=== PATIENT | female | born 1950 | race Caucasian/White ===

== ENCOUNTER → 2019-10-25 09:35 | Outpatient (BNVA) | payer MEDICARE, OTHER, SELFPAY | PROVIDERS: Family Provider Physician Assistant; PCP Physician Assistant; Visit Provider Nurse Practitioner Psychiatric/Mental Health | DX: F32.4 Major depressive disorder, single episode, in partial remission (principal); G89.29 Other chronic pain; F51.04 Psychophysiologic insomnia | CPT/HCPCS: 99214 ==

== ENCOUNTER 2020-02-03 13:56 | Outpatient (CLI) | payer MEDICARE, OTHER, SELFPAY ==
--- NOTE | 2020-02-03 14:16 | XR_ITS ---
WS: [id number] SCREENING DEXA SCAN [employer] CLINICAL INFORMATION: OSTEOPOROSIS COMPARISON: None. FINDINGS: Left forearm bone mineral density 0.683 g/sq cm with a T score of -2.2 and Z score of -0.5 Right forearm bone mineral density 0.678 g/sq cm with a T score of -2.3 and Z score of -0.5 XR/XR DEXA axial skeleton* 14049 IMPRESSION: Osteopenia at the upper end of the range.
== END 2020-02-03 13:57 | disposition home or self-care (01) ==
LOC: RADWPI 14:01
PROVIDERS: Family Provider Physician Assistant; PCP Physician Assistant; Visit Provider Physician Assistant
DX: M81.0 Age-related osteoporosis without current pathological fracture (principal); M85.89 Other specified disorders of bone density and structure, multiple sites
CPT/HCPCS: 77080; 99213

== ENCOUNTER 2020-02-10 11:09 | Day surgery (SDC) | payer MEDICARE, OTHER, SELFPAY ==
[2020-02-08 12:23] VITALS: BMI 29.6
--- NOTE | 2020-02-10 09:19 | W.PM.OPSFHP ---
Same Day Surgery H&P Indication for Procedure/HPI DATE OF PROCEDURE: February 10, 2020 CHIEF COMPLAINT/INDICATIONFOR SURGICAL PROCEDURE: Iron deficiency anemia PREOP DIAGNOSIS: Iron deficiency anemia PLANNED PROCEDRUE: Operation Date: 02/10/20 12:00 Proposed Procedures p EGD 30540, 68436, R19.5(Not Applicable) - Bassem Weller MD s Colonoscopy(Not Applicable) - Bassem Weller MD Medications/Allergies* Home Medications Medication Instructions Recorded Confirmed Type cetirizine 10 mg tablet 10 mg PO DAILY tab 10/24/19 02/08/20 History cyclobenzaprine 10 mg tablet 10 mg PO DAILY PRN tab 10/24/19 02/08/20 History lisinopril 20 mg tablet 20 mg PO DAILY tab 10/24/19 02/08/20 History pregabalin 75 mg capsule 75 mg PO TID PRN 10/24/19 02/08/20 History acyclovir 200 mg capsule 200 mg PO BID cap 10/25/19 02/08/20 History aspirin 81 mg tablet,delayed 81 mg PO DAILY tab 10/25/19 02/08/20 History release atorvastatin 20 mg tablet 20 mg PO DAILY tab 10/25/19 02/08/20 History esomeprazole magnesium 40 mg 40 mg PO BID cap 10/25/19 02/08/20 History capsule,delayed release metformin 500 mg tablet 500 mg PO .QHS tab 10/25/19 02/08/20 History mirtazapine 45 mg tablet 45 mg PO .QHS tab 10/25/19 02/08/20 History buspirone 10 mg tablet 10 mg PO BID tab 01/10/20 02/08/20 History hydrocodone 10 mg-acetaminophen 1 tab PO TID PRN tab 01/10/20 02/08/20 History 325 mg tablet linaclotide 290 mcg capsule 290 mcg PO DAILY PRN cap 01/10/20 02/08/20 History quetiapine 100 mg tablet 100 mg PO .QHS tab 01/10/20 02/08/20 History amlodipine 5 mg PO DAILY 02/08/20 02/08/20 History metoprolol succinate 50 mg PO DAILY 02/08/20 02/08/20 History Allergies/Adverse Reactions Allergy/AdvReac Type Severity Reaction Status Date / Time latex Allergy ALGY-Rash Verified 02/08/20 12:35 Penicillins Allergy ALGY-Rash Verified 01/10/20 10:13 shrimp Allergy ADR-Vomitin Verified 01/10/20 10:13 g Tetracyclines Allergy ALGY-Rash Verified 01/10/20 10:13 Pertinent History/Comorbid Conditions* Social History Smoking and tobacco status: current every day smoker cigarettes Years cigarettes smoked: 35 Quit status (tobacco): not considering quitting Second hand smoke exposure: No Pertinent Exam Findings alert, oriented x 3, clear to auscultation bilaterally, regular rate & rhythm, operative site marked and procedure specific exam findings Recommendations Surgery/Procedure today Coding Level of Care Code Acute Risk Management Professional for Gilbert Bahena
--- NOTE | 2020-02-10 09:20 | W.PM.OPSFHP ---
Same Day Surgery H&P Indication for Procedure/HPI DATE OF PROCEDURE: February 10, 2020 PREOP DIAGNOSIS: Iron deficiency anemia PLANNED PROCEDRUE: Operation Date: 02/10/20 12:00 Proposed Procedures p EGD 84881, 80988, R19.5(Not Applicable) - Bassem Weller MD s Colonoscopy(Not Applicable) - Bassem Weller MD Medications/Allergies* Home Medications Medication Instructions Recorded Confirmed Type cetirizine 10 mg tablet 10 mg PO DAILY tab 10/24/19 02/08/20 History cyclobenzaprine 10 mg tablet 10 mg PO DAILY PRN tab 10/24/19 02/08/20 History lisinopril 20 mg tablet 20 mg PO DAILY tab 10/24/19 02/08/20 History pregabalin 75 mg capsule 75 mg PO TID PRN 10/24/19 02/08/20 History acyclovir 200 mg capsule 200 mg PO BID cap 10/25/19 02/08/20 History aspirin 81 mg tablet,delayed 81 mg PO DAILY tab 10/25/19 02/08/20 History release atorvastatin 20 mg tablet 20 mg PO DAILY tab 10/25/19 02/08/20 History esomeprazole magnesium 40 mg 40 mg PO BID cap 10/25/19 02/08/20 History capsule,delayed release metformin 500 mg tablet 500 mg PO .QHS tab 10/25/19 02/08/20 History mirtazapine 45 mg tablet 45 mg PO .QHS tab 10/25/19 02/08/20 History buspirone 10 mg tablet 10 mg PO BID tab 01/10/20 02/08/20 History hydrocodone 10 mg-acetaminophen 1 tab PO TID PRN tab 01/10/20 02/08/20 History 325 mg tablet linaclotide 290 mcg capsule 290 mcg PO DAILY PRN cap 01/10/20 02/08/20 History quetiapine 100 mg tablet 100 mg PO .QHS tab 01/10/20 02/08/20 History amlodipine 5 mg PO DAILY 02/08/20 02/08/20 History metoprolol succinate 50 mg PO DAILY 02/08/20 02/08/20 History Allergies/Adverse Reactions Allergy/AdvReac Type Severity Reaction Status Date / Time latex Allergy ALGY-Rash Verified 02/08/20 12:35 Penicillins Allergy ALGY-Rash Verified 01/10/20 10:13 shrimp Allergy ADR-Vomitin Verified 01/10/20 10:13 g Tetracyclines Allergy ALGY-Rash Verified 01/10/20 10:13 Pertinent History/Comorbid Conditions* Social History Smoking and tobacco status: current every day smoker cigarettes Years cigarettes smoked: 35 Quit status (tobacco): not considering quitting Second hand smoke exposure: No Coding Level of Care Code Acute Lighting Engineer for Gilbert Bahena
[2020-02-10 11:30] VITALS: BP 142/80; PULSE 87; RESP 18; TEMP 36.3; O2SAT 98
[2020-02-10 11:46] LABS: Glucose Point of Care 115 mg/dL (70-110)
[2020-02-10] MEDS: sodium chloride 0.9% 1,000 ML 30 ML IV (11:46)
--- NOTE | 2020-02-10 11:49 | ANES.PREANE2 ---
Pre-Anesthetic Assessment Pre-Anesthetic Assessment: Height/Weight: Height 1.66 m Weight 82.1 kg Temp Pulse Resp BP Pulse Ox 97.4 F L 87 18 142/80 98 02/10/20 11:30 02/10/20 11:30 02/10/20 11:30 02/10/20 11:30 02/10/20 11:30 Preop Diagnosis: fobt Proposed Procedure: Operation Date: 02/10/20 12:00 Proposed Procedures p EGD 50769, 70331, R19.5(Not Applicable) - Bassem Weller MD s Colonoscopy(Not Applicable) - Bassem Weller MD Familial anesthetic complications: PONV when she was younger Was Beta Iván taken within 24 hours: Yes Last intake: Intake Last Liquid Date 02/09/20 Last Liquid Time 23:00 Last Solid Date 02/09/20 Last Solid Time 07:00 Social: Social History: No alcohol and No tobacco Exam: Pre-Anes Outpt Exam: alert, oriented x 3, clear to auscultation bilaterally and regular rate & rhythm Airway: Cervical ROM: WNL MP: 3 Dentition: False Pulmonary: Pulmonary: None reported CV/HEM: CV/HEM: HTN : : None reported Hepatic: Hepatic: None reported GI: GI: GERD Metabolic: Metabolic: DM Musc/skel: Comments: 2 hip fractures Neuropsych: Neuropsych: None reported Comments: rheumatic fever seizure as a child Anesthetic Plan: ASA status: 2 Anesthesia: MAC Risk of > 500 ml blood loss (7ml/kg in children): No Meds/Allergies Current Medications: Current Medications Generic Name Dose Route Start Last Admin Trade Name Freq PRN Reason Stop Dose Admin Sodium Chloride 1,000 mls @ 30 ml s/hr 02/10/20 11:30 02/10/20 11:46 Sodium Chloride 0.9% IV 02/11/20 11:29 30 mls/hr .Q24H ADILIA Administration PFSH Anesthesia PFSH: Social History Smoking and tobacco status: current every day smoker cigarettes Years cigarettes smoked: 35 Quit status (tobacco): not considering quitting Second hand smoke exposure: No Data Anesthesia Other Labs: Laboratory Results - last 48 hr 02/10/20 11:44 POC Glucose 115 Cardiac Studies: No Data to Display
[2020-02-10 13:38] VITALS: BP 104/64; PULSE 72; RESP 16; TEMP 36.2; O2SAT 97
[2020-02-10 13:48] VITALS: BP 110/77; PULSE 81; RESP 18; O2SAT 100
== END 2020-02-10 14:27 | disposition home or self-care (01) ==
PROVIDERS: PCP Physician Assistant; Visit Provider Internal Medicine
PROC: 0DJ08ZZ Inspection of Upper Intestinal Tract, Via Natural or Artificial Opening Endoscopic (ICD-10-PCS; CPT 43235; principal; 2020-02-10 12:00)
PROC: 0DJD8ZZ Inspection of Lower Intestinal Tract, Via Natural or Artificial Opening Endoscopic (ICD-10-PCS; CPT 45378; 2020-02-10 12:00)
DX: R19.5 Other fecal abnormalities (principal); D50.9 Iron deficiency anemia, unspecified; K29.70 Gastritis, unspecified, without bleeding; I10 Essential (primary) hypertension; K21.9 Gastro-esophageal reflux disease without esophagitis; E11.9 Type 2 diabetes mellitus without complications; F17.210 Nicotine dependence, cigarettes, uncomplicated; Z79.84 Long term (current) use of oral hypoglycemic drugs
CPT/HCPCS: 12345; 36416; 43239; 45378; 82962; 87077; J2001; J2704; J7030

== ENCOUNTER → 2020-02-14 07:56 | Outpatient (BNVA) | payer MEDICARE, OTHER, SELFPAY | PROVIDERS: PCP Physician Assistant; Visit Provider Nurse Practitioner Psychiatric/Mental Health | DX: F32.4 Major depressive disorder, single episode, in partial remission (principal); G89.29 Other chronic pain; F51.04 Psychophysiologic insomnia | CPT/HCPCS: 99212 ==

== ENCOUNTER → 2020-04-05 07:56 | Outpatient (BNVA) | payer MEDICARE, OTHER, SELFPAY | PROVIDERS: PCP Physician Assistant; Visit Provider Nurse Practitioner Psychiatric/Mental Health | DX: F32.4 Major depressive disorder, single episode, in partial remission (principal); G89.29 Other chronic pain; F51.04 Psychophysiologic insomnia | CPT/HCPCS: 99212 ==

== ENCOUNTER → 2020-05-15 08:00 | Outpatient (BNVA) | payer MEDICARE, OTHER, SELFPAY | PROVIDERS: PCP Physician Assistant; Visit Provider Nurse Practitioner Psychiatric/Mental Health | DX: F32.4 Major depressive disorder, single episode, in partial remission (principal); G89.29 Other chronic pain; F51.04 Psychophysiologic insomnia; F41.1 Generalized anxiety disorder | CPT/HCPCS: 99212 ==

== ENCOUNTER → 2020-07-26 08:57 | Outpatient (BNVA) | payer MEDICARE, OTHER, SELFPAY | PROVIDERS: PCP Physician Assistant; Visit Provider Licensed Practical Nurse | DX: Z98.890 Other specified postprocedural states (principal); M51.16 Intervertebral disc disorders with radiculopathy, lumbar region; M51.34 Other intervertebral disc degeneration, thoracic region; G60.8 Other hereditary and idiopathic neuropathies; F17.210 Nicotine dependence, cigarettes, uncomplicated | CPT/HCPCS: 99214 ==

== ENCOUNTER → 2020-08-07 07:42 | Outpatient (BNVA) | payer MEDICARE, OTHER, SELFPAY | PROVIDERS: PCP Physician Assistant; Visit Provider Nurse Practitioner Psychiatric/Mental Health | DX: F32.4 Major depressive disorder, single episode, in partial remission (principal); G89.29 Other chronic pain; F51.04 Psychophysiologic insomnia | CPT/HCPCS: G0463 ==

== ENCOUNTER 2020-09-17 08:07 | Outpatient (CLI) | payer MEDICARE, OTHER, SELFPAY ==
--- NOTE | 2020-09-17 08:45 | MR_ITS ---
WS: [id number] MRI THORACIC SPINE WITHOUT CONTRAST TECHNIQUE: Sagittal T1, T2 and STIR imaging. Axial T2 imaging. Noncontrast imaging obtained. CLINICAL INFORMATION: Z98.890 - Other specified postprocedural states COMPARISON: CT thoracic spine 10 15,018 FINDINGS: Moderate thoracic kyphosis centered at the T7 level with anterior wedging. This is unchanged in appea nanci since the prior CT. Mild retropulsion of the posterior inferior cortex with mild disc bulging a nd mild central canal stenosis. Slight effacement of ventral thecal sac. Mild bilateral T7-8 foramina l narrowing. Small shallow central protrusions at T10-11 and T11-T12 with mild central canal stenosis. Mild bilate ral bony foraminal narrowing bilateral T10-11 and bilateral T11-T12. Moderate facet arthropathy lower thoracic spine. Normal caliber thoracic aorta. Mild central canal stenosis in the cervical spine see n on the registered dental assistant rda imaging. MR/MR thoracic spin wo con* [id number] IMPRESSION: 1. Moderate thoracic kyphosis with chronic compression of the T7 vertebral bod y with anterior wedging is unchanged. 2. Mild disc bulging at T7-8 with mild central canal stenosis and mild bilater al foraminal narrowing. 3. Small central protrusions T10-11 and T11-T12 with mild central canal stenos is and mild bilateral foraminal narrowing. 4. Moderate facet arthropathy lower thoracic spine.
--- NOTE | 2020-09-17 08:49 | MR_ITS ---
WS: [id number] MRI LUMBAR SPINE WITH CONTRAST TECHNIQUE: Sagittal T1, T2 and STIR imaging. Axial T1 and T2 imaging. Post gadolinium imaging was obt ained. CLINICAL INFORMATION: LOW BACK PAIN. FALL. S/P FUSION/FIXATION COMPARISON: MRI 1 16 FINDINGS: Mild lumbar curve. No acute compression. Pedicle screw fixation L2-3 with interbody fusion. Laminecto my defects. Disc bulging worse at L1-2 and L3-4. Small central disc protrusions T10-T11 and T11-T12 w ith mild central canal stenosis. L1-L2: Mild disc bulging with a small central protrusion. Narrowing of the subarticular recess bilate rally. Mild central canal stenosis. Mild bilateral foraminal narrowing. Mild facet arthropathy. L2-L3: Pedicle screw fixation with interbody fusion. Spinal canal and foramen are patent. L3-L4: Laminectomy defects. Mild disc bulging with narrowing of the left greater than right subarticu lar recess. Small bilateral foraminal protrusions left greater than right with moderate left foramina l narrowing. Mild right foraminal narrowing. Moderate facet arthropathy. L4-L5: Mild annular bulging with impingement on the right greater than left subarticular recess and t raversing right L5 nerve root. Small right foraminal protrusion with moderate right foraminal narrowi ng. Moderate facet arthropathy. L5-S1: Mild annular bulging. Moderate facet arthropathy. Spinal canal and foramen are patent. Tarlov cysts in the sacrum. MR/MR lumbar spine wo/w con [id number] IMPRESSION: 1. Mild lumbar curve. No acute compression. Stable postoperative changes pedic le screw fixation L2-3 with interbody fusion. 2. Left foraminal protrusion L3-4 impinges the exiting left L3 nerve root with moderate left foraminal narrowing. This is progressed from previous. 3. Small right foraminal protrusion L4-5 contacts the exiting right L4 nerve r oot. 4. Impingement on the left L3-4 and right L4-5 subarticular recess. 5. Mild central canal stenosis L1-2 with disc bulging and a small central shal low disc protrusion similar to previous. Mild bilateral foraminal narrowing at this level. 6. Small protrusions in the lower thoracic spine at T10-T11 and T11-T12 with m ild central canal stenosis. 7. Moderate facet arthropathy L3-L5.
--- NOTE | 2020-09-17 08:50 | XR_ITS ---
WS: [id number] LUMBAR SPINE FLEXION AND EXTENSION TECHNIQUE: 3 views of the lumbar spine: Lateral neutral, flexion, and extension views. CLINICAL INFORMATION: LOW BACK PAIN. FALL. S/P FUSION/FIXATION COMPARISON: None. FINDINGS: Osteopenia. Slight anterolisthesis L4 on L5 measuring 3 mm. Pedicle screw fixation L2-3 with interbod y fusion graft. Moderate facet arthropathy lower thoracic spine. Hardware appears intact. No instabil ity on flexion-extension. XR/XR lumbar spine f/e only [id number] IMPRESSION: 1. Stable postoperative changes pedicle screw fixation L2-3 with interbody fus ion graft. 2. No instability on flexion-extension.
== END 2020-09-17 08:08 | disposition home or self-care (01) ==
LOC: RADWPI 08:16
PROVIDERS: PCP Physician Assistant; Visit Provider Licensed Practical Nurse
DX: Z98.1 Arthrodesis status (principal); W19.XXXA Unspecified fall, initial encounter; M51.26 Other intervertebral disc displacement, lumbar region; M48.061 Spinal stenosis, lumbar region without neurogenic claudication; M47.816 Spondylosis without myelopathy or radiculopathy, lumbar region; M51.24 Other intervertebral disc displacement, thoracic region
CPT/HCPCS: 72120; 72146; 72158; A9579

== ENCOUNTER → 2020-10-30 09:23 | Outpatient (BNVA) | payer MEDICARE, OTHER, SELFPAY | PROVIDERS: PCP Physician Assistant; Visit Provider Nurse Practitioner Psychiatric/Mental Health | DX: F32.4 Major depressive disorder, single episode, in partial remission (principal); G89.29 Other chronic pain; F51.04 Psychophysiologic insomnia | CPT/HCPCS: 99214 ==

== ENCOUNTER 2020-11-17 11:36 | Observation (INO) | payer MEDICARE, OTHER, SELFPAY ==
[2020-11-17] VITALS (8 sets, daily range): BP systolic 119–141; BP diastolic 71–97; PULSE 73–82; RESP 14–18; TEMP 36.2–36.6; O2SAT 90–100; BMI 28.8
--- NOTE | 2020-11-17 11:46 | ECG_ITS ---
[facility] Test Date: 2020-11-17 Pat Name: Trini Marie Department: Room: Gender: Female Assistant Chief Of Police: : 1950 Requested By: Bk Stack Order Number: [id number] Harmony MD: Ewa Kaplan M.D. Measurements Intervals [place] Rate: 76 P: -68 UT: 198 QRS: -38 QRSD: 110 T: 50 QT: 412 QTc: 465 Interpretive Statements SINUS RHYTHM LEFT AXIS DEVIATION [QRS AXIS < -30] LOW QRS VOLTAGE IN PRECORDIAL LEADS [QRS DEFLECTION < 1.0 mV IN CHEST LEADS] INCOMPLETE RIGHT BUNDLE BRANCH BLOCK [90+ ms QRS DURATION, TERMINAL R IN V1/V2, 40+ ms S IN I/aVL/V4/V5/V6] ANTEROSEPTAL MYOCARDIAL INFARCTION , OF INDETERMINATE AGE [40+ ms Q WAVE IN V1-V4] Compared to ECG 01/20/2019 08:07:35 Incomplete right bundle-branch block now present First degree AV block no longer present Myocardial infarct finding still present Electronically Signed On 11-17-2020 19:27:45 BOW STRING MAKER by Ewa Kaplan M.D. [id number]
--- NOTE | 2020-11-17 11:46 | XRR_ITS ---
PROCEDURE INFORMATION: Exam: XR Chest, 1 View Exam date and time: 11/17/2020 11:51 AM Age: 70 years old Clinical indication: Dyspnea TECHNIQUE: Imaging protocol: XR of the chest Views: 1 view. COMPARISON: CR Chest 1 [place] [id number] 10/02/2016 5:37 PM FINDINGS: Lungs: Unremarkable. No consolidation. Pleural spaces: Unremarkable. No pleural effusion. No pneumothorax. Heart/Mediastinum: Unremarkable. No cardiomegaly. Bones/joints: Unremarkable. XR/XR chest 1V portable [id number] IMPRESSION: No acute findings.
--- NOTE | 2020-11-17 11:46 | CTR_ITS ---
PROCEDURE INFORMATION: Exam: CT Head Without Contrast Exam date and time: 11/17/2020 11:47 AM Age: 70 years old Clinical indication: Altered mental status/memory loss; Additional info: Symptoms of acute stroke TECHNIQUE: Imaging protocol: Computed tomography of the head without contrast. Radiation optimization: All CT scans at this facility use at least one of these dose optimization techniques: automated exposure control; mA and/or kV adjustment per patient size (includes targeted exams where dose is matched to clinical indication); or iterative reconstruction. Other technique: STROKE PROTOCOL was implemented. COMPARISON: No relevant prior studies available. RADIATION DOSE METRICS: Total DLP (mGy-cm): 782.88 FINDINGS: Brain: No hemorrhage, mass effect or midline shift. No acute, major vascular distribution infarction identified. There is foci of decreased attenuation in the periventricular and subcortical white matter, likely representing chronic small vessel ischemic changes. Mild cerebral volume loss is present. Cerebral ventricles: No ventriculomegaly. Bones/joints: Unremarkable. No acute fracture. Paranasal sinuses: There is pansinus mucosal thickening and air-fluid level with bubbles of air in the right venous sinus, suggestive of acute sinusitis. Mastoid air cells: Visualized mastoid air cells are well aerated. Soft tissues: Unremarkable. CT/CT head wo con* [id number] IMPRESSION: 1. No acute intracranial abnormality. 2. Acute sinus inflammatory changes. ASSESSMENT: ASPECTS ([facility] Stroke Program Early CT Score) is 10. Radiation Dose CTDIVOL = (mGy): DLP = 782.88 (mGy-cm)
[2020-11-17] MEDS: naloxone 0.4 mg/ml SDV IVP (11:57)
[2020-11-17 11:58] LABS: Basophils # 0.1 10^3/uL (0.0-0.1); Basophils % 1.4 %; Eosinophils # 0.4 10^3/uL (0.0-0.8); Eosinophils % 5.8 %; Hemoglobin 11.5 g/dL (11.5-15.3); Lymphocytes # 1.1 10^3/uL (0.8-4.8); Lymphocytes % 14.6 %; Mean Corpuscular HGB Conc 33.8 g/dL (30.0-36.0); Mean Corpuscular Hemoglobin 30.6 pg (28.0-34.0); Mean Corpuscular Volume 90.4 fL (81-99); Monocytes # 0.4 10^3/uL (0.2-0.9); Monocytes % 5.4 %; Neutrophils % 72.3 %; Nucleated Red Blood Cells % 0 %; Platelet Count 472 10^3/cmm (130-400); Red Blood Count 3.76 10^6/uL (4.1-5.3); White Blood Count 7.6 10^3/uL (4.0-10.0)
--- NOTE | 2020-11-17 12:03 | P.PNCC_ITS ---
Stroke Alert Activation ED Arrival Date: 11/17/20 ED Physican at Bedside: 11:36 Last Known Normal/at Baseline: 1-2 hours ago Other Last Known Well Infomation: I was called stat for stroke team after self-help [facility] called with left-sided weakness for this 70-year-old woman. Story related by EMS was that the patient was normal when her went out to do some chores and when he returned she was slumped over and he could not wake her up. [facility] was weak on the left side and unarousable. They almost intubated her but she recovered enough that they brought her in on stretcher. She was taken directly to CAT scan and I arrived just as she came off of the table and looked at her scan on the monitor. I had a question of whether her basilar artery was slightly small but she had n o parenchymal abnormalities. No string sign. I came to the bedside and performed an NIH stroke scale along with Yvonne, her patient care nurse. She was stuporous but arousable. She had left facial weakness that was mild. Both arms drifted after 8 seconds. She was able to tell me her name. I found no other focal signs. She appeared profoundly obtunded. Her eye movements were normal but oculocephalic movements were absent consistent with the patient being only mildly sleepy. Her speech was dysarthric as if she were deeply asleep. I thought this was probably toxic metabolic but was concerned about posterior circulation stroke. Yvonne suggested administration of Narcan as she found hydrocodone on the patient's medication list and 1 amp of Narcan was delivered. The patient prompt ly woke up. At that moment (1201) the patient's arrived with her medication boxes and she was alert enough to look at her boxes and say I took this evening's medications, my bad. Stroke alert was called off at 1201. Stroke Alert Activated by: [facility] Stroke Alert Activation Time: 11:23 Stroke MD @ Bedside Time: 11:30 NIH Stroke Scale Time: 11:40 NIH stroke score NIHSS: Level Of Consciousness - 1a: 2 Level Of Consciousness Questions - 1b: Both Correct Level Of Consciousness Commands - 1c: Both Correct Best Gaze - 2: Normal Visual Islas - 3: No Visual Loss (I could not say for sure that the patient did not have a visual field loss because she was too obtunded to threaten) Facial Palsy - 4: Minor Paralysis Motor Arm Right - 5: Drift Motor Arm Left - 5: Drift Motor Leg Right - 6: No Effort Against [place] Motor Leg Left - 6: No Effort Against [place] Limb Ataxia - 7: Absent Sensory - 8: Normal (She complained with pinching but ignored deep nailbed pressure) Best Language - 9: No Aphasia Dysarthia - 10: Mild/Moderate Dysarthia Extinction And Inattention - 11: 0 Score: Total Score: 12 Stroke Alert Data/Treatment Time to CT of Head: 11:36 CT Results Time: 11:40 CT Impression: My impression was normal Stroke Risk Factors: hypertension tPA Contraindication: tPA Contraindication: Treatment not indcated tPA Admin Prior to Arrival: No Patient & Family Educated on: Treament Plan Other Information: Final diagnosis was toxic metabolic encephalopathy secondary to inadvertent drug overdose. This was not intentional and the patient said that she took her evening medications by mistake which included 400 mg of quetiapine and hydrocodone APAP. Her symptoms resolved with Narcan. Critical Care Time Critical Care Time: 30 - 74 mins A&P Assessment and plan (1) Toxic encephalopathy: Status: Acute Coding Level of Care Code Acute Cnc Mill And Lathe Operator for Gilbert Bahena Diagnoses Toxic encephalopathy G92
[2020-11-17 12:08] LABS: INR 0.88 (0.8-1.2)
--- NOTE | 2020-11-17 12:17 | ED_ITS ---
HPI - Neuro Symptoms/Deficit General: Chief Complaint: Neuro Symptoms/Deficit Stated Complaint: Stroke alert Time Seen by Provider: 11/17/20 11:44 History of Present Illness: HPI Narrative: Patient is a 70-year-old female with past medical history hypertension who comes to the ER as a stroke alert. Last time seen normal at 10:45 AM by her . She has a recent history of dizzy spells where she will be standing and feels weird and is able to sit down and feels better shortly thereafter. Today she comes to the ER sleepy but able to wake with verbal stimuli. She also takes hydrocodone and Seroquel. She was given 0.4 mg of Narcan and woke and now she is alert and oriented x4. Denies pain anywhere. Head CT shows no bleed and nothing acute. Discussed with Dr. Avina who agrees with plan of care and does not recommend TPA. Last Observed Normal: 10:45 History of same: No Severity: severe Quality: weak On Anticoagulants: No Associated symptoms: Reports no associated symptoms; Deny chest pain or headache(s) Review of Systems General: Reports: 10 or more systems reviewed and unremarkable except in HPI and below Const: Denies: fatigue Eyes: Denies: change in vision, blurry vision or eye redness ENMT: Denies: throat pain, swelling of lips/tongue, ear or mastoid pain or nasal congestion Card: Denies: chest pain, palpitations, irregular heart rhythm, edema, dyspnea on exertion or orthopnea Resp: Denies: dyspnea, productive cough or non-productive cough GI: Denies: abdominal pain, diarrhea or GI cramping : Denies: flank pain, difficulty voiding, urinary frequency or urinary urgency Musc: Denies: neck pain, back pain, extremity pain, joint pain, joint redness, limited range of motion or muscle weakness Skin/Breast: Denies: rash, pruritus, erythema, skin pain or skin tenderness Neuro: Denies: headache(s), numbness in extremities, weakness in extremities, sensory changes, difficulty walking, dizziness, confusion or Slurred speech present Psych: Denies: anxiety or depression Endo: Denies: polyuria All/Imm: Denies: urticaria, throat swelling or tongue swelling PFSH ED PFSH: Medical History History of broken leg 05/03/2019 Dr. 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 Micheal Andres: Left L3-L4, L4-L5 laminotomy/foraminotomy 09/2012 [place], [place]: L2-L3 with bilateral pedicle screws and verticle rods. Left L2-L3 hemilaminectomy Family History Father Diabetes Mother Diabetes Social History Smoking and tobacco status: current every day smoker cigarettes Years cigarettes smoked: 35 Alcohol intake: never Household members: spouse Marital status: Current occupational status: retired History of recent travel: No Physical Exam Const: COMMON NORMALS: no acute distress, average body habitus, patient oriented x3, no limitations and well nourished GENERAL APPEARANCE: cooperative, comfortable, well kempt, well developed and lethargic (somnolent.) ORIENTATION/CONSCIOUSNESS: Yes oriented to person, Yes oriented to place, Yes oriented to time and Yes lethargic (somnolent.) OTHER: somnolent. wakes to verbal stimuli. HENMT: COMMON NORMALS: normocephalic, external ears normal and Normal external nose present HEAD & SCALP: normal to inspection and normocephalic NOSE: Normal external nose present EXTERNAL EAR: Yes external ears normal MOUTH: Normal oral and palatal mucosa present THROAT: posterior oropharynx normal Eye: COMMON NORMALS: Equal, round and reactive pupils present and EOMs intact bilaterally GENERAL EYE: appearance normal, both eyes and all related structures PUPIL: Yes Equal, round and reactive pupils present Neck/C-Spine: COMMON NORMALS: full ROM, no lymphadenopathy, no meningeal signs and no JVD GENERAL: Yes normal visual inspection Lymph: LYMPHATIC: no lymphadenopathy noted Chest: COMMONS NORMALS: normal inspection of the chest and normal palpation of entire chest wall Resp: COMMON NORMALS: normal respiratory effort, No retractions, No use of accessory muscles, clear to auscultation bilaterally and percussion normal EFFORT & INSPECTION: Yes able to speak in complete sentences AUSCULTATION: clear to auscultation bilaterally PERCUSSION: percussion normal Cardio: COMMON NORMALS: no JVD, regular rate, regular rhythm, S1 normal heart sound present, S2 normal heart sound present and Peripheral pulses 2+ throughout RATE: regular rate RHYTHM: regular rhythm HEART SOUNDS: S1 normal heart sound present and S2 normal heart sound present PERIPHERAL PULSES: Peripheral pulses 2+ throughout GI: COMMON NORMALS: Normal to inspection, nondistended, normoactive bowel sounds present, Soft to palpation, non-tender and no masses INSPECTION: Yes normal to inspection PALPATION: Yes Soft to palpation : COMMON NORMALS: Yes no CVA tenderness BLADDER/KIDNEY EXAM: Yes no CVA tenderness Back/Pelvis: COMMON NORMALS: no CVA tenderness, thoracic and lumbar spine normal to inspection, no thoracic nor lumbar tenderness and thoraco-lumbar ROM normal Extremity: COMMON NORMALS: normal to inspection, full ROM, capillary refill normal, no joint enlargement and no pedal edema GENERAL: Yes normal exam except as noted Neuro: COMMON NORMALS: patient oriented x3, CN's II-XII intact bilaterally, moves all extremities, no focal motor deficits and no sensory deficits noted SENSORIUM/ORIENTATION: Yes oriented to person, Yes oriented to place, Yes oriented to time, Yes lethargic (somnolent.), Yes somnolent and Yes fluctuating sensorium MENINGEAL SIGNS: Yes no meningeal signs Psych: COMMON NORMALS: mental status grossly normal, Normal thought process present, cooperative, normal affect and speech normal APPEARANCE: Yes well kempt ATTITUDE: Yes calm SPEECH: Yes normal speech THOUGHT PROCESS: Normal thought process present Skin: COMMON NORMALS: no rashes or lesions noted GENERAL SKIN EXAM: no rashes or lesions noted Course ED course: The patient came in as a stroke alert but had no focal weakness she was just excessively somnolent. Turns out she took her nighttime medicines and her daytime medicines this morning and likely is a side effect of the opiates and Seroquel. She woke up after 0.4 Narcan but quickly went back to sleep and I recommended she stay observation to sleep off the medications. Dr. Marques saw her in the ED and accepts. Vital Signs: Vital signs: Vital Signs Temperature 97.9 F 11/17/20 11:38 Pulse Rate 82 11/17/20 16:12 Respiratory Rate 18 11/17/20 16:12 Blood Pressure 119/97 11/17/20 16:12 Pulse Oximetry 98 11/17/20 16:12 MDM - Neuro Symptoms/Deficit Lab Data: Labs: Lab Results 11/17/20 11/17/20 11/17/20 Range/Units 11:20 11:20 11:20 WBC 7.6 (4.0-10.0) 10^3/ uL RBC 3.76 L (4.1-5.3) 10^6/u L Hgb 11.5 (11.5-15.3) g/dL Hct 34.0 L (37.0-47.0) % MCV 90.4 (81-99) fL MCH 30.6 (28.0-34.0) pg MCHC 33.8 (30.0-36.0) g/dL RDW 14.0 (12.1-15.1) % Plt Count 472 H (130-400) 10^3/c mm MPV 9.0 (7.4-10.4) fL Neut % (Auto) 72.3 % Lymph % (Auto) 14.6 % [place] % (Auto) 5.4 % Eos % (Auto) 5.8 % Baso % (Auto) 1.4 % Neut # (Auto) 5.50 (1.8-7.7) 10^3/u L Lymph # (Auto) 1.1 (0.8-4.8) 10^3/u L [place] # (Auto) 0.4 (0.2-0.9) 10^3/u L Eos # (Auto) 0.4 (0.0-0.8) 10^3/u L Baso # (Auto) 0.1 (0.0-0.1) 10^3/u L Nucleated RBC % (a uto) 0 % Nucleated RBCs # 0.0 /100WBC PT 12.10 (12.1-14.9) SECO NDS INR 0.88 (0.8-1.2) APTT 29.0 (23.9-36.7) SECO NDS Sodium 125 L (136-145) mmol/L Potassium 4.3 (3.5-5.1) mmol/L Chloride 92 L (98-107) mmol/L Carbon Dioxide 21 L (22-29) mmol/L Anion Gap 16.3 (5-19) BUN 7 L (8-23) mg/dL Creatinine 0.5 (0.5-0.9) mg/dL GFR Calculation 122.3 (90-130) mL/min Glucose 125 H (65-115) mg/dL Calculated Osmolal ity 259 L (285-295) mOsm/k g Calcium 9.2 (8.5-10.5) mg/dL Total Bilirubin 0.2 (0.15-1.2) mg/dL AST 18 (0-32) U/L ALT 13 (0-33) U/L Alkaline Phosphata se 130 H (35-105) IU/L Troponin T Baselin e (0-10) ng/L Troponin T 120 Min [place] (0-10) ng/L Delta Troponin T (0-10) ABS# NT-Pro-B Natriuret Pep (0-125) pg/mL Total Protein 6.0 L (6.6-8.7) g/dL Albumin 4.1 (3.5-5.2) g/dL Globulin 1.9 (1.3-4.6) g/dL Urine Color (Yellow) Urine Appearance (CLEAR) Urine pH (5-7) Ur Specific Gravit y (1.005-1.030) Urine Protein (Negative) Urine Glucose (UA) (Normal) Urine Ketones (Negative) Urine Blood (Negative) Urine Nitrate (Negative) Urine Bilirubin (Negative) Urine Urobilinogen (Negative) mg/dL Ur Leukocyte Tamar ase (Negative) Urine Opiates Scre en (Negative) ng/mL Ur Barbiturates Sc reen (Negative) ng/mL Ur Phencyclidine S crn (Negative) ng/mL Ur Amphetamines Sc reen (Negative) ng/mL U Benzodiazepines Scrn (Negative) ng/mL Urine Cocaine Scre en (Negative) ng/mL U Marijuana (THC) Screen (Negative) ng/mL 11/17/20 11/17/20 11/17/20 Range/Units 11:20 11:20 13:11 WBC (4.0-10.0) 10^3/ uL RBC (4.1-5.3) 10^6/u L Hgb (11.5-15.3) g/dL Hct (37.0-47.0) % MCV (81-99) fL MCH (28.0-34.0) pg MCHC (30.0-36.0) g/dL RDW (12.1-15.1) % Plt Count (130-400) 10^3/c mm MPV (7.4-10.4) fL Neut % (Auto) % Lymph % (Auto) % [place] % (Auto) % Eos % (Auto) % Baso % (Auto) % Neut # (Auto) (1.8-7.7) 10^3/u L Lymph # (Auto) (0.8-4.8) 10^3/u L [place] # (Auto) (0.2-0.9) 10^3/u L Eos # (Auto) (0.0-0.8) 10^3/u L Baso # (Auto) (0.0-0.1) 10^3/u L Nucleated RBC % (a uto) % Nucleated RBCs # /100WBC PT (12.1-14.9) SECO NDS INR (0.8-1.2) APTT (23.9-36.7) SECO NDS Sodium (136-145) mmol/L Potassium (3.5-5.1) mmol/L Chloride (98-107) mmol/L Carbon Dioxide (22-29) mmol/L Anion Gap (5-19) BUN (8-23) mg/dL Creatinine (0.5-0.9) mg/dL GFR Calculation (90-130) mL/min Glucose (65-115) mg/dL Calculated Osmolal ity (285-295) mOsm/k g Calcium (8.5-10.5) mg/dL Total Bilirubin (0.15-1.2) mg/dL AST (0-32) U/L ALT (0-33) U/L Alkaline Phosphata se (35-105) IU/L Troponin T Baselin e 7 (0-10) ng/L Troponin T 120 Min [place] 7.54 (0-10) ng/L Delta Troponin T 0.54 (0-10) ABS# NT-Pro-B Natriuret Pep 135 H (0-125) pg/mL Total Protein (6.6-8.7) g/dL Albumin (3.5-5.2) g/dL Globulin (1.3-4.6) g/dL Urine Color (Yellow) Urine Appearance (CLEAR) Urine pH (5-7) Ur Specific Gravit y (1.005-1.030) Urine Protein (Negative) Urine Glucose (UA) (Normal) Urine Ketones (Negative) Urine Blood (Negative) Urine Nitrate (Negative) Urine Bilirubin (Negative) Urine Urobilinogen (Negative) mg/dL Ur Leukocyte Tamar ase (Negative) Urine Opiates Scre en (Negative) ng/mL Ur Barbiturates Sc reen (Negative) ng/mL Ur Phencyclidine S crn (Negative) ng/mL Ur Amphetamines Sc reen (Negative) ng/mL U Benzodiazepines Scrn (Negative) ng/mL Urine Cocaine Scre en (Negative) ng/mL U Marijuana (THC) Screen (Negative) ng/mL 11/17/20 11/17/20 Range/Units 13:25 13:25 WBC (4.0-10.0) 10^3/ uL RBC (4.1-5.3) 10^6/u L Hgb (11.5-15.3) g/dL Hct (37.0-47.0) % MCV (81-99) fL MCH (28.0-34.0) pg MCHC (30.0-36.0) g/dL RDW (12.1-15.1) % Plt Count (130-400) 10^3/c mm MPV (7.4-10.4) fL Neut % (Auto) % Lymph % (Auto) % [place] % (Auto) % Eos % (Auto) % Baso % (Auto) % Neut # (Auto) (1.8-7.7) 10^3/u L Lymph # (Auto) (0.8-4.8) 10^3/u L [place] # (Auto) (0.2-0.9) 10^3/u L Eos # (Auto) (0.0-0.8) 10^3/u L Baso # (Auto) (0.0-0.1) 10^3/u L Nucleated RBC % (a uto) % Nucleated RBCs # /100WBC PT (12.1-14.9) SECO NDS INR (0.8-1.2) APTT (23.9-36.7) SECO NDS Sodium (136-145) mmol/L Potassium (3.5-5.1) mmol/L Chloride (98-107) mmol/L Carbon Dioxide (22-29) mmol/L Anion Gap (5-19) BUN (8-23) mg/dL Creatinine (0.5-0.9) mg/dL GFR Calculation (90-130) mL/min Glucose (65-115) mg/dL Calculated Osmolal ity (285-295) mOsm/k g Calcium (8.5-10.5) mg/dL Total Bilirubin (0.15-1.2) mg/dL AST (0-32) U/L ALT (0-33) U/L Alkaline Phosphata se (35-105) IU/L Troponin T Baselin e (0-10) ng/L Troponin T 120 Min [place] (0-10) ng/L Delta Troponin T (0-10) ABS# NT-Pro-B Natriuret Pep (0-125) pg/mL Total Protein (6.6-8.7) g/dL Albumin (3.5-5.2) g/dL Globulin (1.3-4.6) g/dL Urine Color Yellow (Yellow) Urine Appearance Clear (CLEAR) Urine pH 5 (5-7) Ur Specific Gravit y 1.015 (1.005-1.030) Urine Protein Neg (Negative) Urine Glucose (UA) Norm (Normal) Urine Ketones Negative (Negative) Urine Blood Neg (Negative) Urine Nitrate Negative (Negative) Urine Bilirubin Neg (Negative) Urine Urobilinogen Norm (Negative) mg/dL Ur Leukocyte Tamar ase Negative (Negative) Urine Opiates Scre en Positive H (Negative) ng/mL Ur Barbiturates Sc reen Negative (Negative) ng/mL Ur Phencyclidine S crn Negative (Negative) ng/mL Ur Amphetamines Sc reen Negative (Negative) ng/mL U Benzodiazepines Scrn Negative (Negative) ng/mL Urine Cocaine Scre en Negative (Negative) ng/mL U Marijuana (THC) Screen Negative (Negative) ng/mL Discharge Plan Discharge Patient Disposition: Admitted As Inpatient Admit Provider: Wally Marques Clinical Impression: Drug side effects, Somnolence Condition: Stable Coding Level of Care Code ED Sex Crimes Detective for Chg Fwd Exam Comprehensive
[2020-11-17 12:44] LABS: Alanine Aminotransferase 13 U/L (0-33); Albumin Level 4.1 g/dL (3.5-5.2); Alkaline Phosphatase 130 IU/L (35-105); Aspartate Amino Transferase 18 U/L (0-32); Blood Urea Nitrogen 7 mg/dL (8-23); Calcium 9.2 mg/dL (8.5-10.5); Carbon Dioxide 21 mmol/L (22-29); Chloride 92 mmol/L (98-107); Globulin 1.9 g/dL (1.3-4.6); Glomerular Filtration Rate 122.3 mL/min (90-130); Glucose 125 mg/dL (65-115); Osmolality Calculated 259 mOsm/kg (285-295); Sodium 125 mmol/L (136-145); Total Bilirubin 0.2 mg/dL (0.15-1.2)
[2020-11-17 12:45] LABS: Troponin(5th) Baseline 7 ng/L (0-10)
[2020-11-17 12:54] LABS: Anion Gap 16.3 (5-19); Potassium 4.3 mmol/L (3.5-5.1)
[2020-11-17 13:32] LABS: Add Urine Microscopic? NO
[2020-11-17 13:42] LABS: Bilirubin Urine Neg (Negative); Blood Urine Neg (Negative); Glucose Urine UA Norm (Normal); Ketones Urine Negative (Negative); Leukocyte Esterase Urine Negative (Negative); Nitrate Urine Negative (Negative); Protein Urine Neg (Negative); Specific Gravity, Urine 1.015 (1.005-1.030); Urine Appearance Clear (CLEAR); Urine Color Yellow (Yellow); Urobilinogen Urine Norm (Negative); pH Urine 5 (5-7)
[2020-11-17 13:46] LABS: Amphetamines Screen Urine Negative (Negative); Barbiturates Screen Urine Negative (Negative); Benzodiazepines Screen Urine Negative (Negative); Cocaine Screen Urine Negative (Negative); Opiate Screen Urine Positive (Negative); PCP Screen Urine Negative (Negative); THC Screen Urine Negative (Negative)
[2020-11-17 13:48] LABS: Troponin 5 2HR 7.54 ng/L (0-10); Troponin 5 2HR Delta 0.54 ABS# (0-10)
[2020-11-17 13:55] LABS: NT Pro B Type Natriuretic Pept 135 pg/mL (0-125)
--- NOTE | 2020-11-17 13:56 | ECG_ITS ---
[facility] Test Date: 2020-11-17 Pat Name: Trini Marie Department: Room: Gender: Female Senior Graduate Advisor: : [id number] Requested By: Bk Stack Order Number: [id number] [place] MD: Ewa Kaplan M.D. Measurements Intervals [place] Rate: 75 P: 54 IL: 246 QRS: -41 QRSD: 110 T: 55 QT: 410 QTc: 458 Interpretive Statements SINUS RHYTHM WITH FIRST DEGREE AV BLOCK LEFT AXIS DEVIATION [QRS AXIS < -30] LOW QRS VOLTAGE IN PRECORDIAL LEADS [QRS DEFLECTION < 1.0 mV IN CHEST LEADS] POSSIBLE RIGHT VENTRICULAR CONDUCTION DELAY [RSR (QR) IN V1/V2] ANTEROSEPTAL MYOCARDIAL INFARCTION , OF INDETERMINATE AGE [40+ ms Q WAVE IN V1-V4] Compared to ECG 11/17/2020 11:54:18 First degree AV block now present Incomplete right bundle-branch block no longer present Myocardial infarct finding still present Electronically Signed On 11-17-2020 19:48:35 COMPUTER INSTALLATION ENGINEER by Ewa Kaplan M.D. [id number]
--- NOTE | 2020-11-17 14:16 | PC.PHAR ---
pt took all her night meds today.
--- NOTE | 2020-11-17 16:38 | PM.HP ---
Providers/Chief Complaint Admitting Physician: Wally Marques MD Primary Care Provider: Karely Witt Chief Complaint: Stroke alert History of Present Illness Trini Marie is a 70 year old female with past medical history of hypertension diabetes chronic back pain chronic insomnia. Childhood rheumatic fever. Was brought in by the EMS for possible stroke,[facility] with left-sided weakness, upon arrival in the ER code for stroke was called Story related by EMS was that the patient was normal when her went out to do some chores and when he returned she was slumped over and he could not wake her up. [facility] arrived and found that she was weak on the left side and unarousable. They almost intubated her but she recovered enough that they brought her in on stretcher. Dr. Avina evaluated the patient in the ER, CT head without contrast was: No acute intracranial pathology was noted. NIH stroke score scale:12 in the ER. At 1 point of time in the ER giving thrombolytics in the ER was being considered. But later upon review of medication, it was decided to give Narcan as her medications list contained hydrocodone APAP. She responded well to 1 amp of Narcan.The patient promptly woke up. Upon further interviewing she accepted the fact that mistakenly she took her evening medications by mistake which included 400 mg of quetiapine and hydrocodone APAP. When I evaluated the pain patient was alert oriented* 3. She was inquiring about her home medications to be restarted and was inquiring about the night time medications. Pertinent labs in ER: Serum sodium: 125 , U tox: Opiates, urinalysis: Clean. EKG: NSR, LAD, incomplete right bundle branch. Review of Systems Const: Denies: fever(s), chills, body aches, change in appetite or diaphoresis Card: Denies: palpitations, edema, swelling of feet/ankles, dyspnea on exertion, orthopnea or leg pain with exertion Resp: Denies: dyspnea, productive cough, wheezing or pain on inspiration GI: Denies: abdominal pain, nausea, vomiting, diarrhea or constipation : Denies: flank pain Musc: Denies: back pain, extremity pain or extremity swelling Neuro: Denies: headache(s) or difficulty walking Medications/Allergies Home Medications Medication Instructions Recorded Confirmed Last Taken Type cetirizine 10 mg tablet 10 mg PO DAILY tab 10/24/19 11/17/20 11/16/20 History cyclobenzaprine 10 mg tablet 10 mg PO DAILY PRN tab 10/24/19 11/17/20 02/08/20 History lisinopril 20 mg tablet 20 mg PO DAILY tab 10/24/19 11/17/20 11/16/20 History pregabalin 75 mg capsule 75 mg PO TID PRN 10/24/19 11/17/20 02/09/20 History acyclovir 200 mg capsule 200 mg PO BID cap 10/25/19 11/17/20 11/17/20 History aspirin 81 mg tablet,delayed 81 mg PO DAILY tab 10/25/19 11/17/20 11/17/20 History release atorvastatin 20 mg tablet 20 mg PO DAILY tab 10/25/19 11/17/20 11/16/20 History esomeprazole magnesium 40 mg 40 mg PO BID cap 10/25/19 11/17/20 11/17/20 History capsule,delayed release metformin 500 mg tablet 500 mg PO BEDTIME tab 10/25/19 11/17/20 11/17/20 History hydrocodone 10 mg-acetaminophen 1 tab PO TID PRN tab 01/10/20 11/17/20 02/09/20 History 325 mg tablet linaclotide 290 mcg capsule 290 mcg PO DAILY PRN cap 01/10/20 11/17/20 Unknown History amlodipine 5 mg PO DAILY 02/08/20 11/17/20 11/16/20 History metoprolol succinate 50 mg PO DAILY 02/08/20 11/17/20 11/16/20 History buspirone 15 mg tablet 15 mg PO TID #270 tab 10/30/20 11/17/20 11/17/20 Rx paroxetine HCl 20 mg tablet 60 mg PO QAM #270 tab 10/30/20 11/17/20 11/16/20 Rx Seroquel 100 mg PO BEDTIME 11/17/20 11/17/20 11/17/20 History Seroquel 300 mg PO BEDTIME 11/17/20 11/17/20 11/17/20 History eszopiclone 2 mg PO BEDTIME PRN 11/17/20 11/17/20 Unknown History ferrous sulfate [Iron (ferrous 325 mg PO BID 0211/17/20 11/17/20 History sulfate)] Allergies Allergy/AdvReac Type Severity Reaction Status Date / Time latex Allergy ALGY-Rash Verified 09/25/20 11:56 Penicillins Allergy ALGY-Rash Verified 07/26/20 09:10 shrimp Allergy ADR-Vomitin Verified 07/26/20 09:10 g Tetracyclines Allergy ALGY-Rash Verified 07/26/20 09:10 PFSH Acute PFSH: Medical History History of broken leg 05/03/2019 Dr. 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 Micheal Andres: Left L3-L4, L4-L5 laminotomy/foraminotomy 09/2012 [facility] [place]: L2-L3 with bilateral pedicle screws and verticle rods. Left L2-L3 hemilaminectomy Family History Father Diabetes Mother Diabetes Social History Smoking and tobacco status: current every day smoker cigarettes Years cigarettes smoked: 35 Alcohol intake: never Household members: spouse Marital status: Current occupational status: retired History of recent travel: No Vitals/I&O/Wt Last Vital Signs Temp 97.6 F 11/17/20 16:30 Pulse 73 11/17/20 16:30 Resp 18 11/17/20 16:30 BP 130/77 11/17/20 16:30 Pulse Ox 100 11/17/20 16:30 Weight last 48 hrs Weight 78.608 kg Physical Exam Const: COMMON NORMALS: patient oriented x3 HENMT: COMMON NORMALS: normocephalic and atraumatic HEAD & SCALP: normocephalic and atraumatic Resp: COMMON NORMALS: clear to auscultation bilaterally AUSCULTATION: clear to auscultation bilaterally Cardio: COMMON NORMALS: regular rate, regular rhythm, S1 normal heart sound present, S2 normal heart sound present, No gallops present (Cardio), No murmurs present (Cardio), No rub (Cardio) and Peripheral pulses 2+ throughout RATE: regular rate RHYTHM: regular rhythm HEART SOUNDS: S1 normal heart sound present and S2 normal heart sound present PERIPHERAL PULSES: Peripheral pulses 2+ throughout GI: COMMON NORMALS: Normal to inspection, nondistended, normoactive bowel sounds present, Soft to palpation, non-tender, No hepatosplenomegaly present and no masses AUSCULTATION: Yes normoactive bowel sounds PALPATION: Yes Soft to palpation and Yes No hepatosplenomegaly present RECTAL EXAM: deferred Extremity: COMMON NORMALS: no clubbing, cyanosis or edema and no pedal edema Neuro: COMMON NORMALS: patient oriented x3, moves all extremities, no focal motor deficits and no sensory deficits noted SENSORIUM/ORIENTATION: Yes alert, Yes oriented to person, Yes oriented to place and Yes oriented to time SPEECH: speech normal MOTOR EXAM: 5/5 motor strength present throughout, Pronator motor function not present, no tremor noted, Motor fasciculations not present, Normal motor muscle tone present throughout and Abnormal motor strength present Data : 11/17/20 11:20 11/17/20 11:20 A&P Assessment and plan (1) Toxic encephalopathy: Toxic metabolic encephalopathy secondary to accidental drug overdose. she took her evening medications by mistake which included 400 mg of quetiapine and hydrocodone APAP. Plan is to continue to monitor the patient overnight for any other possible side effects. Status: Acute (2) Drug side effects: Status: Acute (3) Hypertension: Currently blood pressure is well controlled. Continue to monitor blood pressure for now. Status: Acute (4) Diabetes: Low-dose sliding scale insulin Monitor fingerstick glucose Status: Acute (5) Chronic insomnia: Status: Chronic (6) Chronic pain: Status: Chronic Additional A&P Information Code Status : Full code DVT PPX : Lovenox Disposition :Home in am Attestations Medical Necessity Statement*: Patient is to be in hospital for management of toxic metabolic encephalopathy 2/2 accidental drug overdose. Anticipated length of stay is less than 2 midnights. Coding Level of Care Code Acute Plating Department Helper for Gilbert Bahena Diagnoses Toxic encephalopathy G92 Drug side effects T88.7XXA Hypertension I10 Diabetes E11.9 Chronic insomnia F51.04 Chronic pain G89.29
[2020-11-17] MEDS: pantoprazole DR 40 mg Tablet PO (17:06)
[2020-11-17] MEDS: ferrous sulfate EC 325 mg Tablet PO (17:06)
[2020-11-17] MEDS: enoxaparin 40 mg/0.4 mL Syringe SUBCUT (17:06)
[2020-11-17] MEDS: acyclovir 400 mg Tablet 200 MG PO (17:06)
[2020-11-17 19:02] LABS: Troponin 5 6HR 6.34 ng/L (0-10)
[2020-11-17 19:06] LABS: Troponin 5 6HR Delta -0.66 ng/L (0-12)
[2020-11-17] MEDS: quetiapine 100 mg Tablet PO (21:15)
[2020-11-17] MEDS: quetiapine 300 mg Tablet PO (21:16)
--- NOTE | 2020-11-17 21:20 | PC.NURSE ---
Patient refused her miralax, stating that she takes linzess and will not take the miralax in place because it tastes nasty. Doctor notified, no new orders received.
[2020-11-18] VITALS: BP 127/80; PULSE 75; RESP 17; TEMP 36.3; O2SAT 96
[2020-11-18 04:00] VITALS: BP 113/69; PULSE 83; RESP 17; TEMP 36.6; O2SAT 97
[2020-11-18 04:55] LABS: Basophils # 0.1 10^3/uL (0.0-0.1); Basophils % 1.1 %; Eosinophils # 0.3 10^3/uL (0.0-0.8); Eosinophils % 3.3 %; Hematocrit 31.1 % (37.0-47.0); Hemoglobin 10.7 g/dL (11.5-15.3); Lymphocytes % 11.9 %; Mean Corpuscular HGB Conc 34.4 g/dL (30.0-36.0); Mean Corpuscular Hemoglobin 30.8 pg (28.0-34.0); Mean Corpuscular Volume 89.6 fL (81-99); Mean Platelet Volume 8.5 fL (7.4-10.4); Monocytes # 0.5 10^3/uL (0.2-0.9); Neutrophils % 77.2 %; Nucleated Red Blood Cells % 0 %; Platelet Count 416 10^3/cmm (130-400); Red Blood Count 3.47 10^6/uL (4.1-5.3); Red Cell Distribution Width 14.3 % (12.1-15.1); White Blood Count 8.5 10^3/uL (4.0-10.0)
[2020-11-18 05:13] LABS: Alanine Aminotransferase 11 U/L (0-33); Albumin Level 3.3 g/dL (3.5-5.2); Alkaline Phosphatase 101 IU/L (35-105); Anion Gap 13.8 (5-19); Aspartate Amino Transferase 12 U/L (0-32); Blood Urea Nitrogen 5 mg/dL (8-23); Calcium 8.2 mg/dL (8.5-10.5); Carbon Dioxide 23 mmol/L (22-29); Chloride 95 mmol/L (98-107); Globulin 2.1 g/dL (1.3-4.6); Glomerular Filtration Rate 158.3 mL/min (90-130); Glucose 80 mg/dL (65-115); Osmolality Calculated 262 mOsm/kg (285-295); Potassium 3.8 mmol/L (3.5-5.1); Sodium 128 mmol/L (136-145); Total Bilirubin 0.3 mg/dL (0.15-1.2); Total Protein 5.4 g/dL (6.6-8.7)
[2020-11-18] MEDS: PARoxetine 20 mg Tablet 60 MG PO (06:20)
[2020-11-18 06:40] LABS: Glucose Point of Care 94 mg/dL (70-110)
[2020-11-18 07:45] VITALS: PULSE 91
[2020-11-18 07:48] VITALS: BP 147/81; PULSE 76; RESP 18; TEMP 36.5; O2SAT 98
[2020-11-18] MEDS: pantoprazole DR 40 mg Tablet PO (08:10)
[2020-11-18] MEDS: metoprolol succinate ER (24 HR) 50 mg Tablet PO (08:10)
[2020-11-18] MEDS: lisinopril 20 mg Tablet PO (08:10)
[2020-11-18] MEDS: cetirizine 10 mg Tablet PO (08:10)
[2020-11-18] MEDS: atorvastatin 40 mg Tablet 20 MG PO (08:10)
[2020-11-18] MEDS: amlodipine 5 mg Tablet PO (08:10)
[2020-11-18] MEDS: acyclovir 400 mg Tablet 200 MG PO (08:10)
--- NOTE | 2020-11-18 09:27 | PM.DCS ---
Discharge Providers Date of Admission: 11/17/20 15:25 Date of Discharge: November 18, 2020 Attending Provider at Admission: Wally Marques MD Attending Provider at Discharge: Wally Marques MD Primary Care Provider: Karely Witt Diagnoses at Discharge Discharge Diagnosis (1) Toxic encephalopathy: Status: Resolved (2) Drug side effects: Status: Resolved (3) Hypertension: Status: Chronic (4) Diabetes: Status: Chronic (5) Chronic insomnia: Status: Chronic (6) Chronic pain: Status: Chronic Reason for Visit Reason for Visit: Stroke alert Hospital Course Hospital Course Trini Marie is a 70 year old female with past medical history of hypertension diabetes chronic back pain chronic insomnia. Childhood rheumatic fever. Was brought in by the EMS for possible stroke,after self-help [facility] called with left-sided weakness, upon arrival in the ER code for stroke was called Story related by EMS was that the patient was normal when her went out to do some chores and when he returned she was slumped over and he could not wake her up. [facility] arrived and found that she was weak on the left side and unarousable. They almost intubated her but she recovered enough that they brought her in on stretcher. Dr. Avina evaluated the patient in the ER, CT head without contrast was: No acute intracranial pathology was noted. NIH stroke score scale:12 in the ER. At 1 point of time in the ER giving thrombolytics in the ER was being considered. But later upon review of medication, it was decided to give Narcan as her medications list contained hydrocodone APAP. She responded well to 1 amp of Narcan.The patient promptly woke up. Upon further interviewing she accepted the fact that mistakenly she took her evening medications by mistake which included 400 mg of quetiapine and hydrocodone APAP. When I evaluated the pain patient was alert oriented* 3. She was inquiring about her home medications to be restarted and was inquiring about the night time medications. Pertinent labs in ER: Serum sodium: 125 , U tox: Opiates, urinalysis: Clean. EKG: NSR, LAD, incomplete right bundle branch. She was admitted for the management of Toxic encephalopathy: Toxic metabolic encephalopathy secondary to accidental drug overdose. she took her evening medications by mistake which included 400 mg of quetiapine and hydrocodone APAP. She was continued to monitor the patient overnight for any other possible side effects.She had an eventful night and was discharged in stable condition to home next morning.She has h/o chronic asymptomatic hyponatremia. Physical Exam Const: COMMON NORMALS: patient oriented x3 and alert ORIENTATION/CONSCIOUSNESS: Yes oriented to person, Yes oriented to place and Yes oriented to time HENMT: COMMON NORMALS: normocephalic and atraumatic HEAD & SCALP: normocephalic and atraumatic Resp: COMMON NORMALS: clear to auscultation bilaterally AUSCULTATION: clear to auscultation bilaterally Cardio: COMMON NORMALS: regular rate, regular rhythm, S1 normal heart sound present, S2 normal heart sound present, No gallops present (Cardio), No murmurs present (Cardio), No rub (Cardio) and Peripheral pulses 2+ throughout RATE: regular rate RHYTHM: regular rhythm HEART SOUNDS: S1 normal heart sound present and S2 normal heart sound present PERIPHERAL PULSES: Peripheral pulses 2+ throughout GI: COMMON NORMALS: Normal to inspection, nondistended, normoactive bowel sounds present, Soft to palpation, non-tender, No hepatosplenomegaly present and no masses AUSCULTATION: Yes normoactive bowel sounds PALPATION: Yes Soft to palpation and Yes No hepatosplenomegaly present RECTAL EXAM: deferred Extremity: COMMON NORMALS: no clubbing, cyanosis or edema and no pedal edema Neuro: COMMON NORMALS: patient oriented x3, moves all extremities, no focal motor deficits and no sensory deficits noted SENSORIUM/ORIENTATION: Yes alert, Yes oriented to person, Yes oriented to place and Yes oriented to time SPEECH: speech normal MOTOR EXAM: 5/5 motor strength present throughout, Pronator motor function not present, no tremor noted, Motor fasciculations not present, Normal motor muscle tone present throughout and Abnormal motor strength present Discharge Data Data Completed and Pending: Completed Studies During Hospitalization Category Date Time Status CT head wo con* 7 0450 Stat Cat Scan 11/17/20 11:46 Completed XR chest 1V shantell ble [id number] Stat Exams 11/17/20 11:46 Completed Pending at discharge Category Date Time Status Complete Blood Co unt w/Auto AM LABS Lab 11/19/20 04:00 Ordered Complete Blood Co unt w/Auto AM LABS Lab 11/20/20 04:00 Ordered Comprehensive Met abolic Panel AM LA BS Lab 11/19/20 04:00 Ordered Comprehensive Met abolic Panel AM LA BS Lab 11/20/20 04:00 Ordered Labs from last 24 hours 11/18/20 11/18/20 11/18/20 06:37 04:45 04:45 WBC 8.5 RBC 3.47 L Hgb 10.7 L Hct 31.1 L MCV 89.6 MCH 30.8 MCHC 34.4 RDW 14.3 Plt Count 416 H MPV 8.5 Neut % (Auto) 77.2 Lymph % (Auto) 11.9 [place] % (Auto) 6.0 Eos % (Auto) 3.3 Baso % (Auto) 1.1 Neut # (Auto) 6.60 Lymph # (Auto) 1.0 [place] # (Auto) 0.5 Eos # (Auto) 0.3 Baso # (Auto) 0.1 Nucleated RBC % (a uto) 0 Nucleated RBCs # 0.0 PT INR APTT Sodium 128 L Potassium 3.8 Chloride 95 L Carbon Dioxide 23 Anion Gap 13.8 BUN 5 L Creatinine 0.4 L GFR Calculation 158.3 H Glucose 80 POC Glucose 94 Calculated Osmolal ity 262 L Calcium 8.2 L Total Bilirubin 0.3 AST 12 ALT 11 Alkaline Phosphata se 101 Troponin T Baselin e Troponin T 120 Min rincon Delta Troponin T Troponin T Hi Sens 6Hr Troponin T Hi Sens 6Hr Delta NT-Pro-B Natriuret Pep Total Protein 5.4 L Albumin 3.3 L Globulin 2.1 Urine Color Urine Appearance Urine pH Ur Specific Gravit y Urine Protein Urine Glucose (UA) Urine Ketones Urine Blood Urine Nitrate Urine Bilirubin Urine Urobilinogen Ur Leukocyte Tamar ase Urine Opiates Scre en Ur Barbiturates Sc reen Ur Phencyclidine S crn Ur Amphetamines Sc reen U Benzodiazepines Scrn Urine Cocaine Scre en U Marijuana (THC) Screen 11/17/20 11/17/20 11/17/20 18:01 13:25 13:25 WBC RBC Hgb Hct MCV MCH MCHC RDW Plt Count MPV Neut % (Auto) Lymph % (Auto) [place] % (Auto) Eos % (Auto) Baso % (Auto) Neut # (Auto) Lymph # (Auto) [place] # (Auto) Eos # (Auto) Baso # (Auto) Nucleated RBC % (a uto) Nucleated RBCs # PT INR APTT Sodium Potassium Chloride Carbon Dioxide Anion Gap BUN Creatinine GFR Calculation Glucose POC Glucose Calculated Osmolal ity Calcium Total Bilirubin AST ALT Alkaline Phosphata se Troponin T Baselin e Troponin T 120 Min [place]incon Delta Troponin T Troponin T Hi Sens 6Hr 6.34 Troponin T Hi Sens 6Hr Delta -0.66 L NT-Pro-B Natriuret Pep Total Protein Albumin Globulin Urine Color Yellow Urine Appearance Clear Urine pH 5 Ur Specific Gravit y 1.015 Urine Protein Neg Urine Glucose (UA) Norm Urine Ketones Negative Urine Blood Neg Urine Nitrate Negative Urine Bilirubin Neg Urine Urobilinogen Norm Ur Leukocyte Tamar ase Negative Urine Opiates Scre en Positive H Ur Barbiturates Sc reen Negative Ur Phencyclidine S crn Negative Ur Amphetamines Sc reen Negative U Benzodiazepines Scrn Negative Urine Cocaine Scre en Negative U Marijuana (THC) Screen Negative 11/17/20 11/17/20 11/17/20 13:11 11:20 11:20 WBC RBC Hgb Hct MCV MCH MCHC RDW Plt Count MPV Neut % (Auto) Lymph % (Auto) [place] % (Auto) Eos % (Auto) Baso % (Auto) Neut # (Auto) Lymph # (Auto) [place] # (Auto) Eos # (Auto) Baso # (Auto) Nucleated RBC % (a uto) Nucleated RBCs # PT INR APTT Sodium Potassium Chloride Carbon Dioxide Anion Gap BUN Creatinine GFR Calculation Glucose POC Glucose Calculated Osmolal ity Calcium Total Bilirubin AST ALT Alkaline Phosphata se Troponin T Baselin e 7 Troponin T 120 Min [place]incon 7.54 Delta Troponin T 0.54 Troponin T Hi Sens 6Hr Troponin T Hi Sens 6Hr Delta NT-Pro-B Natriuret Pep 135 H Total Protein Albumin Globulin Urine Color Urine Appearance Urine pH Ur Specific Gravit y Urine Protein Urine Glucose (UA) Urine Ketones Urine Blood Urine Nitrate Urine Bilirubin Urine Urobilinogen Ur Leukocyte Tamar ase Urine Opiates Scre en Ur Barbiturates Sc reen Ur Phencyclidine S crn Ur Amphetamines Sc reen U Benzodiazepines Scrn Urine Cocaine Scre en U Marijuana (THC) Screen 11/17/20 11/17/20 11/17/20 11:20 11:20 11:20 WBC 7.6 RBC 3.76 L Hgb 11.5 Hct 34.0 L MCV 90.4 MCH 30.6 MCHC 33.8 RDW 14.0 Plt Count 472 H MPV 9.0 Neut % (Auto) 72.3 Lymph % (Auto) 14.6 [place] % (Auto) 5.4 Eos % (Auto) 5.8 Baso % (Auto) 1.4 Neut # (Auto) 5.50 Lymph # (Auto) 1.1 [place] # (Auto) 0.4 Eos # (Auto) 0.4 Baso # (Auto) 0.1 Nucleated RBC % (a uto) 0 Nucleated RBCs # 0.0 PT 12.10 INR 0.88 APTT 29.0 Sodium 125 L Potassium 4.3 Chloride 92 L Carbon Dioxide 21 L Anion Gap 16.3 BUN 7 L Creatinine 0.5 GFR Calculation 122.3 Glucose 125 H POC Glucose Calculated Osmolal ity 259 L Calcium 9.2 Total Bilirubin 0.2 AST 18 ALT 13 Alkaline Phosphata se 130 H Troponin T Baselin e Troponin T 120 Min [place] Delta Troponin T Troponin T Hi Sens 6Hr Troponin T Hi Sens 6Hr Delta NT-Pro-B Natriuret Pep Total Protein 6.0 L Albumin 4.1 Globulin 1.9 Urine Color Urine Appearance Urine pH Ur Specific Gravit y Urine Protein Urine Glucose (UA) Urine Ketones Urine Blood Urine Nitrate Urine Bilirubin Urine Urobilinogen Ur Leukocyte Tamar ase Urine Opiates Scre en Ur Barbiturates Sc reen Ur Phencyclidine S crn Ur Amphetamines Sc reen U Benzodiazepines Scrn Urine Cocaine Scre en U Marijuana (THC) Screen Vitals: Last Vital Signs Temp 97.7 F 11/18/20 07:48 Pulse 76 11/18/20 07:48 Resp 18 11/18/20 07:48 BP 147/81 11/18/20 07:48 Pulse Ox 98 11/18/20 07:48 Discharge Plan Discharge Patient Disposition: Home Condition: Stable Prescriptions: Continued cyclobenzaprine 10 mg tablet 10 mg PO DAILY PRN (Reason: muscle spasm) RF: 0 lisinopril 20 mg tablet 20 mg PO DAILY RF: 0 cetirizine [Zyrtec] 10 mg tablet 10 mg PO DAILY RF: 0 pregabalin [Lyrica] 75 mg capsule 75 mg PO TID PRN (Reason: Pain) RF: 0 metformin 500 mg tablet 500 mg PO BEDTIME RF: 0 hydrocodone-acetaminophen 10-325 mg tablet 1 tab PO TID PRN (Reason: Pain) RF: 0 buspirone 15 mg tablet 15 mg PO TID Qty: 270 RF: 0 paroxetine HCl 20 mg tablet 60 mg PO QAM Qty: 270 RF: 0 atorvastatin 20 mg tablet 20 mg PO DAILY RF: 0 aspirin 81 mg tablet,delayed release (DR/EC) 81 mg PO DAILY RF: 0 Hold Instructions: Resume on 03/12/20. Doctor's Order esomeprazole magnesium 40 mg capsule,delayed release(DR/EC) 40 mg PO BID RF: 0 acyclovir 200 mg capsule 200 mg PO BID RF: 0 linaclotide 290 mcg capsule 290 mcg PO DAILY PRN (Reason: Gastrointestinal Spasms Or Cramping) RF: 0 metoprolol succinate 50 mg tablet extended release 24 hr 50 mg PO DAILY RF: 0 amlodipine 5 mg tablet 5 mg PO DAILY RF: 0 Seroquel 300 mg tablet 300 mg PO BEDTIME RF: 0 Seroquel 100 mg tablet 100 mg PO BEDTIME RF: 0 eszopiclone 1 mg tablet 2 mg PO BEDTIME PRN (Reason: insomnia) RF: 0 Iron (ferrous sulfate) 325 mg (65 mg iron) Tablet 325 mg PO BID RF: 0 Discharge Orders: Discharge Order (Routine); Ordered 11/18/20 Ordered By: Wally Marques Referrals: Karely Witt PA [Primary Care Provider] - 4-7 days (Call your primary care first thing Thursday morning at [phone] to schedule an apointment in 4 to 7 days.) Discharge Diet: Diabetic Discharge Activity: Resume usual activity Patient Instructions: Hepatic Encephalopathy (GEN), Altered Mental Status (GEN) Discharge Attestations Time Spent in Discharge Care*: less than 30 min Specific Discharge Activities: educating patient, educating and/or supporting family/caregiver, discussing with telephonic case manager/social workers/dc planners, documenting/other paperwork and evaluating patient/reviewing data Status at Discharge: Cognitive status at discharge: cognitively intact, Functional status at discharge: independent ambulation Overall status at discharge: patient is back to baseline Quality Metrics Clinical Quality Measures During this hospital stay, did patient experience: None Coding Level of Care Code Acute [employer] for [place] Fwd Diagnoses Toxic encephalopathy G92 Drug side effects T88.7XXA Hypertension I10 Diabetes E11.9 Chronic insomnia F51.04 Chronic pain G89.29
[2020-11-18 09:33] VITALS: PULSE 76; O2SAT 98
[2020-11-18 10:13] VITALS: PULSE 76; O2SAT 98
--- NOTE | 2020-11-18 10:26 | PC.CHAP ---
Pastoral Care Encounter/Spiritual Assessment Type of Contact [] Declined earthmoving labourer visit [] Patient/Family/Request visit [] Outpatient visit [] Follow-up visit [] Physician referral [] Code/Alert [x] Routine visit [] Staff referral [] Actively dying [] Patient sleeping [] Family support [] [] Out of room [] Palliative care [] [] Receiving care in room [] Pre-surgical visit [] Trauma [] Long length of stay [] ICU visit [] Other: Relational/Emotional Strength [] Patient feels connected with others/family/visitors/staff [] Distress [] Loneliness/isolation [] Abandonment Spirituality of Patient [x] Person of Maya [] Attends Mosque of their Maya [] Believes in Prayer [] Reads Bible or Temple materials [] There are Spiritual issues to be addressed Stain Maker Interventions [x] Prayer [x] Active listening [x] Non-anxious presence [x] Spiritual/emotional support [] Crisis/trauma care [] Spiritual counseling [] Bereavement support [] Provided bereavement packet [] Provided Bible/devotional materials [] Provided toy/stuffed animal, coloring book to patient or family member [] Provided Communion [] Anointing/[place] [] Salvation [x] Completed spiritual assessment [] Other: Impact on Illness or Injury [] Angry [] Fearful [] Anxious [] Often cries [] Exhaustion [] Unable to work [] Unable to attend voodoo [] Unable to walk/stand [] Unable to read [] Unable to drive [] Unable to eat/drink [] Unable to sleep [] Unable to be with family [] Patient intubated [] Other: Summary Chaplains prayed with Patient. Time spent with patient 8 minutes.
--- NOTE | 2020-11-19 17:40 | PC.RESP ---
Smoking Cessation information sent to patient.
== END 2020-11-18 10:14 | disposition home or self-care (01) ==
LOC: ER 12:11 → MEDSURG 15:39
PROVIDERS: Admitting Provider Internal Medicine; Emergency Provider Family Medicine; PCP Physician Assistant; Visit Provider Internal Medicine
DX: G92 Toxic encephalopathy (principal); T88.7XXA Unspecified adverse effect of drug or medicament, initial encounter; I10 Essential (primary) hypertension; E11.9 Type 2 diabetes mellitus without complications; F51.04 Psychophysiologic insomnia; G89.29 Other chronic pain; M54.9 Dorsalgia, unspecified; F17.210 Nicotine dependence, cigarettes, uncomplicated
CPT/HCPCS: 36415; 36416; 51701; 70450; 71045; 80053; 80306; 81003; 82962; 83880; 84484; 85025; 85610; 85730; 93005; 96361; 96372; 96374; 99285; G0378; J1650; J2310; J8499

== ENCOUNTER → 2020-11-22 08:36 | Outpatient (BNVA) | payer MEDICARE, OTHER, SELFPAY | PROVIDERS: PCP Physician Assistant; Visit Provider Nurse Practitioner Psychiatric/Mental Health | DX: F32.4 Major depressive disorder, single episode, in partial remission (principal); G89.29 Other chronic pain; F51.04 Psychophysiologic insomnia | CPT/HCPCS: 99213 ==

== ENCOUNTER → 2021-02-12 09:03 | Outpatient (BNVA) | payer MEDICARE, OTHER, SELFPAY | PROVIDERS: PCP Physician Assistant; Visit Provider Nurse Practitioner Psychiatric/Mental Health | DX: F32.4 Major depressive disorder, single episode, in partial remission (principal); F51.04 Psychophysiologic insomnia; G89.29 Other chronic pain | CPT/HCPCS: 99213 ==

== ENCOUNTER → 2021-03-01 14:53 | Outpatient (BNVA) | payer MEDICARE, OTHER, SELFPAY | PROVIDERS: PCP Physician Assistant; Referring Provider Physician Assistant; Visit Provider Podiatrist Foot & Ankle Surgery | DX: E11.621 Type 2 diabetes mellitus with foot ulcer (principal); L97.519 Non-pressure chronic ulcer of other part of right foot with unspecified severity; M21.611 Bunion of right foot; Z87.81 Personal history of (healed) traumatic fracture | CPT/HCPCS: 73630 ==

== ENCOUNTER 2021-03-11 10:41 | Inpatient (IN) | payer MEDICARE, OTHER, SELFPAY ==
[2021-03-11] VITALS (7 sets, daily range): BP systolic 86–129; BP diastolic 54–76; PULSE 86–166; RESP 12–18; TEMP 36.8–38; O2SAT 84–99; BMI 28.6
--- NOTE | 2021-03-11 11:07 | ED_ITS ---
HPI - General Adult General: Chief complaint: General Medical Stated complaint: low BP, confusion, Fell down multiple times Time Seen by Provider: 03/11/21 10:54 History of Present Illness: HPI narrative: 71 yo female present to the ER with compaints of hypoxia, tachycardia, hypotension she states over the last week she has had confusion difficulty with speech and falling. She denies any chest pain shortness of breath and abdominal pain. She has a history of hypertension and is on antihypertensives. She did take all her medications today. Patient requires assist of 2 to go to the restroom while in the ER. Onset (ago): week(s) Severity: moderate Relieving factors: rest Exacerbating factors: none Associated symptoms: Reports confusion, decreased appetite, vomiting and weakness; Deny chest pain, cough, diaphoresis, dyspnea, fevers/chills, headache(s), mal aise, nausea, rash, palpitations, seizures, short of breath or syncope Treatments prior to arrival: none Review of Systems Const: Denies: malaise or diaphoresis ENMT: Denies: throat pain, ear or mastoid pain, nasal discharge or nasal congestion Card: Denies: chest pain, palpitations or syncope Resp: Denies: dyspnea GI: Reports: vomiting; Denies: nausea : Denies: flank pain, difficulty voiding, dysuria, urinary frequency or urinary urgency Skin/Breast: Denies: rash Neuro: Reports: confusion; Denies: headache(s) [facility] ED PFSH: Medical History Chronic insomnia Chronic pain Diabetes Drug side effects History of broken leg 05/03/2019 Dr. 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 Micheal Andres: Left L3-L4, L4-L5 laminotomy/foraminotomy 09/2012 [place], [place]: L2-L3 with bilateral pedicle screws and verticle rods. Left L2-L3 hemilaminectomy Family History Father Diabetes Mother Diabetes Social History Smoking and tobacco status: current every day smoker cigarettes Years cigarettes smoked: 35 Alcohol intake: never Household members: spouse Marital status: Current occupational status: retired History of recent travel: No Physical Exam Const: COMMON NORMALS: no acute distress GENERAL APPEARANCE: cooperative and comfortable ORIENTATION/CONSCIOUSNESS: Yes awake HENMT: COMMON NORMALS: normocephalic, atraumatic, hearing grossly normal bilaterally and external ears normal HEAD & SCALP: normocephalic and atraumatic EXTERNAL EAR: Yes external ears normal Neck/C-Spine: COMMON NORMALS: no JVD Resp: COMMON NORMALS: normal respiratory effort, No retractions, No use of accessory muscles and clear to auscultation bilaterally AUSCULTATION: clear to auscultation bilaterally Cardio: COMMON NORMALS: no JVD, regular rate, regular rhythm and No murmurs present (Cardio) RATE: regular rate RHYTHM: regular rhythm GI: COMMON NORMALS: Soft to palpation and No hepatosplenomegaly present AUSCULTATION: Yes normoactive bowel sounds PALPATION: Yes Soft to palpation, No Tenderness to palpation present (GI), No Guarding due to palpation present (GI) and Yes No hepatosplenomegaly present Extremity: COMMON NORMALS: normal to inspection, capillary refill normal, no clubbing, cyanosis or edema, no calf tenderness and no pedal edema Skin: COMMON NORMALS: no rashes or lesions noted GENERAL SKIN EXAM: no rashes or lesions noted Course Vital Signs: Vital signs: Vital Signs Temperature 98.2 F 03/11/21 10:46 Pulse Rate 87 03/11/21 15:30 Respiratory Rate 18 03/11/21 15:30 Blood Pressure 126/63 03/11/21 15:30 Pulse Oximetry 98 03/11/21 15:30 MDM - General Adult MDM Narrative: Medical decision making narrative: Leukocytosis and hyponatremia patient extremely weak with abnormal gait. Discussed with hospitalist will admit the patient. She did improve with fluids but will need further adjustments in medications or further evaluation she has been cultured and started on cefepime for now. Lab Data: Labs: Lab Results 03/11/21 03/11/2121 Range/Units 11:55 11:55 11:55 WBC 21.5 H (4.0-10.0) 10^3/ uL RBC 3.33 L (4.1-5.3) 10^6/u L Hgb 9.5 L (11.5-15.3) g/dL Hct 27.9 L (37.0-47.0) % MCV 83.8 (81-99) fL MCH 28.5 (28.0-34.0) pg MCHC 34.1 (30.0-36.0) g/dL RDW 13.5 (12.1-15.1) % Plt Count 679 H (130-400) 10^3/c mm MPV 8.8 (7.4-10.4) fL Neut % (Auto) 88.6 % Lymph % (Auto) 4.6 % [place] % (Auto) 3.8 % Eos % (Auto) 0.8 % Baso % (Auto) 0.5 % Neut # (Auto) 19.09 H (1.8-7.7) 10^3/u L Lymph # (Auto) 1.0 (0.8-4.8) 10^3/u L [place] # (Auto) 0.8 (0.2-0.9) 10^3/u L Eos # (Auto) 0.2 (0.0-0.8) 10^3/u L Baso # (Auto) 0.1 (0.0-0.1) 10^3/u L Nucleated RBC % (a uto) 0 % Nucleated RBCs # 0.0 /100WBC Sodium 125 L (136-145) mmol/L Potassium 4.1 (3.5-5.1) mmol/L Chloride 89 L (98-107) mmol/L Carbon Dioxide 22 (22-29) mmol/L Anion Gap 18.1 (5-19) BUN 13 (8-23) mg/dL Creatinine 0.5 (0.5-0.9) mg/dL GFR Calculation 122.0 (90-130) mL/min Glucose 85 (65-115) mg/dL Calculated Osmolal ity 259 L (285-295) mOsm/k g Calcium 8.0 L (8.5-10.5) mg/dL Total Bilirubin 0.4 (0.15-1.2) mg/dL AST 26 (0-32) U/L ALT 20 (0-33) U/L Alkaline Phosphata se 202 H (35-105) IU/L Creatine Kinase 258 H (26-192) U/L Troponin T Baselin e 12 H (0-10) ng/L Troponin T 120 Min [place] (0-10) ng/L Delta Troponin T (0-10) ABS# Total Protein 5.5 L (6.6-8.7) g/dL Albumin 2.8 L (3.5-5.2) g/dL Globulin 2.7 (1.3-4.6) g/dL Urine Color (Yellow) Urine Appearance (CLEAR) Urine pH (5-7) Ur Specific Gravit y (1.005-1.030) Urine Protein (Negative) Urine Glucose (UA) (Normal) Urine Ketones (Negative) Urine Blood (Negative) Urine Nitrate (Negative) Urine Bilirubin (Negative) Urine Urobilinogen (Negative) mg/dL Ur Leukocyte Tamar ase (Negative) 03/11/21 03/11/21 Range/Units 14:05 14:07 WBC (4.0-10.0) 10^3/ uL RBC (4.1-5.3) 10^6/u L Hgb (11.5-15.3) g/dL Hct (37.0-47.0) % MCV (81-99) fL MCH (28.0-34.0) pg MCHC (30.0-36.0) g/dL RDW (12.1-15.1) % Plt Count (130-400) 10^3/c mm MPV (7.4-10.4) fL Neut % (Auto) % Lymph % (Auto) % [place] % (Auto) % Eos % (Auto) % Baso % (Auto) % Neut # (Auto) (1.8-7.7) 10^3/u L Lymph # (Auto) (0.8-4.8) 10^3/u L [place] # (Auto) (0.2-0.9) 10^3/u L Eos # (Auto) (0.0-0.8) 10^3/u L Baso # (Auto) (0.0-0.1) 10^3/u L Nucleated RBC % (a uto) % Nucleated RBCs # /100WBC Sodium (136-145) mmol/L Potassium (3.5-5.1) mmol/L Chloride (98-107) mmol/L Carbon Dioxide (22-29) mmol/L Anion Gap (5-19) BUN (8-23) mg/dL Creatinine (0.5-0.9) mg/dL GFR Calculation (90-130) mL/min Glucose (65-115) mg/dL Calculated Osmolal ity (285-295) mOsm/k g Calcium (8.5-10.5) mg/dL Total Bilirubin (0.15-1.2) mg/dL AST (0-32) U/L ALT (0-33) U/L Alkaline Phosphata se (35-105) IU/L Creatine Kinase (26-192) U/L Troponin T Baselin e (0-10) ng/L Troponin T 120 Min [place] 14.58 H (0-10) ng/L Delta Troponin T 2.58 (0-10) ABS# Total Protein (6.6-8.7) g/dL Albumin (3.5-5.2) g/dL Globulin (1.3-4.6) g/dL Urine Color Straw (Yellow) Urine Appearance Clear (CLEAR) Urine pH 6.5 (5-7) Ur Specific Gravit y 1.005 (1.005-1.030) Urine Protein Neg (Negative) Urine Glucose (UA) Norm (Normal) Urine Ketones Negative (Negative) Urine Blood Neg (Negative) Urine Nitrate Negative (Negative) Urine Bilirubin Neg (Negative) Urine Urobilinogen Norm (Negative) mg/dL Ur Leukocyte Tamar ase Negative (Negative) Discharge Plan Discharge Patient Disposition: Admitted As Inpatient Clinical Impression: Hyponatremia, Leukocytosis, Weakness Condition: Stable Coding Level of Care Code ED [employer]pensing [employer]uring [employer] for [place] Fwd Exam Comprehensive
--- NOTE | 2021-03-11 11:20 | ECG_ITS ---
[facility] Test Date: 2021-03-11 Pat Name: Trini Marie Department: Room: Gender: Female Display Decorator: SRINI : 1950 Requested By: Juan Daniel Larson Order Number: [id number] Reading MD: Ewa Kaplan M.D. Measurements Intervals [place] Rate: 85 P: 75 ND: 237 QRS: -42 QRSD: 101 T: 49 QT: 372 QTc: 444 Interpretive Statements SINUS RHYTHM WITH FIRST DEGREE AV BLOCK MARKED LEFT AXIS DEVIATION [QRS AXIS < -30] LOW QRS VOLTAGE IN PRECORDIAL LEADS [QRS DEFLECTION < 1.0 mV IN CHEST LEADS] SEPTAL MYOCARDIAL INFARCTION [40+ ms Q WAVE IN V1/V2], PROBABLY OLD WARNING: DATA QUALITY MAY AFFECT INTERPRETATION Compared to ECG 11/17/2020 13:42:18 No significant changes Electronically Signed On 03-11-2021 22:49:04 CDT by Ewa Kaplan M.D. [id number] f
--- NOTE | 2021-03-11 11:20 | CT_ITS ---
WS: [id number] CT HEAD TECHNIQUE: Noncontrast CT of the head obtained from the skullbase to the vertex. CLINICAL INFORMATION: spech difficulty COMPARISON: None. DLP: 867.[address] scans at [facility] use at least one of these dose optimization techniques: automat ed exposure control; mA and/or kV adjustment per patient size (includes targeted exams where dose is matched to clinical indication); or iterative reconstruction. FINDINGS: No evidence of intracranial hemorrhage or mass effect. Ventricular system and basal cisterns are bradford nt. Mild small vessel changes with moderate parenchymal volume loss. Cavernous carotid calcification. No extra-axial fluid collections. No evidence of mass or mass effect. Normal elliott-white differentiat ion. Secretions in the right maxillary sinus and sphenoid sinus. Paranasal sinuses are otherwise well aera noé. CT/CT head wo con* [id number] IMPRESSION: 1. No evidence of intracranial hemorrhage or mass effect. 2. Mild small vessel changes. Moderate parenchymal volume loss. 3. A few secretions within the right maxillary sinus and sphenoid sinus. 4. No acute intracranial findings. Notified Juan Daniel Ramesh DO at 03/11/2021 1:23 PM.
--- NOTE | 2021-03-11 11:20 | XR_ITS ---
WS: [id number] Exam: XR chest 1V portable [id number] Date/Time of Exam: 03/11/2021 11:27 AM Reason For Exam: dyspnea/cough Comparison 11/17/2020. The lungs are clear and fully inflated. Normal cardiomediastinal structures. Bony elements are intact . XR/XR chest 1V portable [id number] IMPRESSION: 1. No acute cardiopulmonary finding. No change.
[2021-03-11] MEDS: sodium chloride 0.9% 500 ML 999 ML IV (12:10)
[2021-03-11 12:20] LABS: Basophils # 0.1 10^3/uL (0.0-0.1); Basophils % 0.5 %; Eosinophils # 0.2 10^3/uL (0.0-0.8); Eosinophils % 0.8 %; Hematocrit 27.9 % (37.0-47.0); Hemoglobin 9.5 g/dL (11.5-15.3); Lymphocytes % 4.6 %; Mean Corpuscular HGB Conc 34.1 g/dL (30.0-36.0); Mean Corpuscular Hemoglobin 28.5 pg (28.0-34.0); Mean Corpuscular Volume 83.8 fL (81-99); Mean Platelet Volume 8.8 fL (7.4-10.4); Monocytes # 0.8 10^3/uL (0.2-0.9); Monocytes % 3.8 %; Neutrophils # 19.09 10^3/uL (1.8-7.7); Neutrophils % 88.6 %; Nucleated Red Blood Cells % 0 %; Platelet Count 679 10^3/cmm (130-400); Red Blood Count 3.33 10^6/uL (4.1-5.3); Red Cell Distribution Width 13.5 % (12.1-15.1); White Blood Count 21.5 10^3/uL (4.0-10.0)
[2021-03-11 12:52] LABS: Troponin(5th) Baseline 12 ng/L (0-10)
[2021-03-11 12:55] LABS: Alanine Aminotransferase 20 U/L (0-33); Albumin Level 2.8 g/dL (3.5-5.2); Alkaline Phosphatase 202 IU/L (35-105); Aspartate Amino Transferase 26 U/L (0-32); Blood Urea Nitrogen 13 mg/dL (8-23); Carbon Dioxide 22 mmol/L (22-29); Chloride 89 mmol/L (98-107); Creatine Phosphokinase 258 U/L (26-192); Globulin 2.7 g/dL (1.3-4.6); Glucose 85 mg/dL (65-115); Osmolality Calculated 259 mOsm/kg (285-295); Sodium 125 mmol/L (136-145); Total Bilirubin 0.4 mg/dL (0.15-1.2); Total Protein 5.5 g/dL (6.6-8.7)
[2021-03-11 12:58] LABS: Anion Gap 18.1 (5-19); Potassium 4.1 mmol/L (3.5-5.1)
--- NOTE | 2021-03-11 13:20 | ECG_ITS ---
[facility] Test Date: 2021-03-11 Pat Name: Trini Marie Department: Room: Gender: Female [employer] Employee: [employer] : 1950 Requested By: Juan Daniel Larson Order Number: [id number] Reading MD: Ewa Kaplan M.D. Measurements Intervals [place] Rate: 85 P: 73 IN: 239 QRS: -43 QRSD: 100 T: 12 QT: 376 QTc: 448 Interpretive Statements SINUS RHYTHM WITH FIRST DEGREE AV BLOCK LOW QRS VOLTAGE IN PRECORDIAL LEADS [QRS DEFLECTION < 1.0 mV IN CHEST LEADS] INFERIOR MYOCARDIAL INFARCTION [40+ ms Q WAVE AND/OR ST/T ABNORMALITY IN II/aVF], PROBABLY OLD ANTEROSEPTAL MYOCARDIAL INFARCTION [40+ ms Q WAVE IN V1-V4], OF INDETERMINATE AGE Compared to ECG 11/17/2020 13:42:18 Left-axis deviation no longer present Myocardial infarct finding still present Electronically Signed On 03-11-2021 22:57:45 CDT by Ewa Kaplan M.D. [id number]
[2021-03-11 14:47] LABS: Troponin 5 2HR 14.58 ng/L (0-10); Troponin 5 2HR Delta 2.58 ABS# (0-10)
[2021-03-11 14:53] LABS: Add Urine Microscopic? NO; Charge for UA Resulting for Rev
[2021-03-11] MEDS: levofloxacin-dextrose 5 % 750 MG/150 ML PREMIX 100 MG IV (14:54)
[2021-03-11 14:59] LABS: Urine Appearance Clear (CLEAR); Urine Color Straw (Yellow)
[2021-03-11 15:00] LABS: Bilirubin Urine Neg (Negative); Blood Urine Neg (Negative); Glucose Urine UA Norm (Normal); Ketones Urine Negative (Negative); Leukocyte Esterase Urine Negative (Negative); Nitrate Urine Negative (Negative); Protein Urine Neg (Negative); Specific Gravity, Urine 1.005 (1.005-1.030); Urobilinogen Urine Norm (Negative); pH Urine 6.5 (5-7)
--- NOTE | 2021-03-11 17:20 | ECG_ITS ---
[facility] Test Date: 2021-03-11 Pat Name: Trini Marie Department: Room: 254 Gender: Female Head Of Visual Merchandising: : 1950 Requested By: Juan Daniel Larson Order Number: [id number] Reading MD: Ewa Kaplan M.D. Measurements Intervals [place] Rate: 88 P: 68 [place]: 220 QRS: -29 QRSD: 101 T: 57 QT: 381 QTc: 463 Interpretive Statements SINUS RHYTHM WITH FIRST DEGREE AV BLOCK LOW QRS VOLTAGE [QRS DEFLECTION < 0.5/1.0 mV IN LIMB/CHEST LEADS] ANTEROSEPTAL MYOCARDIAL INFARCTION [40+ ms Q WAVE IN V1-V4], OF INDETERMINATE AGE Compared to ECG 03/11/2021 12:06:19 Left-axis deviation no longer present Myocardial infarct finding still present Electronically Signed On 03-11-2021 22:54:31 CDT by Ewa Kaplan M.D. [id number]
--- NOTE | 2021-03-11 18:04 | PC.RESP ---
SMOKING CESSATION INFORMATION SENT TO PATIENT.
[2021-03-11 19:01] LABS: Troponin 5 6HR 11.83 ng/L (0-10)
[2021-03-11 19:03] LABS: Troponin 5 6HR Delta -0.17 ng/L (0-12)
--- NOTE | 2021-03-11 20:30 | PM.HP ---
Providers/Chief Complaint Admitting Physician: Jorge Castellano DO Primary Care Provider: Karely Witt Chief Complaint: low BP, confusion, Fell down multiple times History of Present Illness Trini Marie is a 71 year old female Who states that her thought she was acting funny. She saw her physician dental appliance fixer today who recommended her to be seen in the hospital. She admits to falling. Her is unavailable at time of exam. She admits to a cough and dry mouth. She does not know the etiology of her cough. She states that she has no sputum production. She is unaware of her diagnosis of hyponatremia. Also she stated that she was dehydrated that the doctor downstairs told her that. Review of Systems Const: Denies: fever(s) or chills Eyes: Denies: change in vision ENMT: Reports: mouth pain and dry mouth Card: Denies: chest pain or palpitations Resp: Denies: dyspnea or productive cough GI: Denies: abdominal pain, nausea, vomiting or change in stool character : Denies: dysuria Musc: Denies: back pain or extremity pain Skin/Breast: Denies: rash or lesions Neuro: Denies: headache(s) or dizziness Psych: Denies: anxiety or depression Yovany/Lymph: Denies: easy bruising or easy bleeding Medications/Allergies Home Medications Medication Instructions Recorded Confirmed Last Taken Type cetirizine 10 mg tablet 10 mg PO DAILY tab 10/24/19 03/11/21 03/10/21 History cyclobenzaprine 10 mg tablet 10 mg PO DAILY PRN tab 10/24/19 03/11/21 02/08/20 History pregabalin 75 mg capsule 75 mg PO TID PRN 10/24/19 03/11/21 02/09/20 History acyclovir 200 mg capsule 200 mg PO BID cap 10/25/19 03/11/21 03/11/21 History aspirin 81 mg tablet,delayed 81 mg PO DAILY tab 10/25/19 03/11/21 03/10/21 History release atorvastatin 20 mg tablet 20 mg PO DAILY tab 10/25/19 03/11/21 03/10/21 History esomeprazole magnesium 40 mg 40 mg PO BID cap 10/25/19 03/11/21 03/11/21 History capsule,delayed release metformin 500 mg tablet 500 mg PO BEDTIME tab 10/25/19 03/11/21 03/10/21 History hydrocodone 10 mg-acetaminophen 1 tab PO Q4H PRN tab 01/10/20 03/11/21 02/09/20 History 325 mg tablet linaclotide 290 mcg capsule 290 mcg PO DAILY PRN cap 01/10/20 03/11/21 Unknown History amlodipine 5 mg PO DAILY 02/08/20 03/11/21 03/10/21 History metoprolol succinate 50 mg PO DAILY 02/08/20 03/11/21 03/10/21 History ferrous sulfate [Iron (ferrous 325 mg PO DAILY 11/17/20 03/11/21 03/10/21 History sulfate)] [id number] ac 400 1 tab PO DAILY tab 11/20/20 03/11/21 03/10/21 History mcg-calcium carb 500 mg-vit K1 20 mcg tablet vitamin B complex 1 tab PO DAILY 11/20/20 03/11/21 03/10/21 History amitriptyline 100 mg tablet 100 mg PO DAILY #90 tab 02/12/21 03/11/21 03/10/21 Rx buspirone 15 mg tablet 15 mg PO TID #270 tab 02/12/21 03/11/21 03/10/21 Rx paroxetine HCl 20 mg tablet 60 mg PO QAM #270 tab 02/12/21 03/11/21 03/10/21 Rx quetiapine 100 mg tablet 100 mg PO BEDTIME #90 tab 02/12/21 03/11/21 03/10/21 Rx quetiapine 300 mg tablet 300 mg PO BEDTIME #90 tab 02/12/21 03/11/21 03/10/21 Rx eszopiclone 1 mg PO BEDTIME PRN 03/11/21 03/11/21 Unknown History Allergies Allergy/AdvReac Type Severity Reaction Status Date / Time latex Allergy Intermediate ALGY-Rash Verified 03/01/21 14:33 Penicillins Allergy Intermediate ALGY-Rash Verified 03/01/21 14:33 shrimp Allergy Intermediate ADR-Vomitin Verified 03/01/21 14:33 g Tetracyclines Allergy Intermediate ALGY-Rash Verified 03/01/21 14:33 PFSH Acute PFSH: Medical History (Updated 03/11/21 @ 20:43 by Jorge Castellano DO) Chronic insomnia Chronic pain Diabetes Drug side effects History of broken leg 05/03/2019 Dr. 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 Micheal Andres: Left L3-L4, L4-L5 laminotomy/foraminotomy 09/2012 [place], [place]: L2-L3 with bilateral pedicle screws and verticle rods. Left L2-L3 hemilaminectomy Family History Father Diabetes Mother Diabetes Social History Smoking and tobacco status: current every day smoker cigarettes Years cigarettes smoked: 35 Alcohol intake: never Household members: spouse Marital status: Current occupational status: retired History of recent travel: No Vitals/I&O/Wt Last Vital Signs Temp 98.4 F 03/11/21 20:00 Pulse 95 03/11/21 20:00 Resp 18 03/11/21 20:00 BP 127/74 03/11/21 20:00 Pulse Ox 98 03/11/21 20:00 03/11/21 03/11/21 03/11/21 06:59 14:59 22:59 Intake Total 500 / 500 150 / 650 Balance 500 / 500 150 / 650 Weight last 48 hrs Weight 75.75 kg Physical Exam Const: COMMON NORMALS: no acute distress, average body habitus, patient oriented x3 and healthy appearing GENERAL APPEARANCE: cooperative, comfortable and well kempt ORIENTATION/CONSCIOUSNESS: Yes awake HENMT: COMMON NORMALS: normocephalic, atraumatic, hearing grossly normal bilaterally, external ears normal, EAC's normal and Normal external nose present; oral mucous membranes not moist and oropharynx not normal HEAD & SCALP: normocephalic and atraumatic Eye: COMMON NORMALS: Equal, round and reactive pupils present and EOMs intact bilaterally GENERAL EYE: normal light reflex Neck/C-Spine: COMMON NORMALS: full ROM, no lymphadenopathy, no meningeal signs, no JVD, Thyroid normal and No carotid bruits Lymph: LYMPHATIC: no lymphadenopathy noted Chest: COMMONS NORMALS: normal inspection of the chest and normal inspection of the breasts Resp: COMMON NORMALS: normal respiratory effort and clear to auscultation bilaterally Cardio: COMMON NORMALS: regular rate, regular rhythm, S1 normal heart sound present, S2 normal heart sound present and No murmurs present (Cardio) GI: COMMON NORMALS: Normal to inspection, nondistended, normoactive bowel sounds present, Soft to palpation, non-tender and No hepatosplenomegaly present : COMMON NORMALS: Yes no CVA tenderness Back/Pelvis: COMMON NORMALS: no CVA tenderness and thoracic and lumbar spine normal to inspection Extremity: COMMON NORMALS: no calf tenderness and no pedal edema RIGHT LOWER EXTREMITY: Yes knee joint (SURGICAL SCAR) LEFT LOWER EXTREMITY: Yes knee joint (SURGICAL SCAR) Neuro: COMMON NORMALS: patient oriented x3, CN's II-XII intact bilaterally, moves all extremities, no focal motor deficits and no sensory deficits noted SENSORIUM/ORIENTATION: Yes alert Psych: COMMON NORMALS: mental status grossly normal, Normal thought process present, cooperative, normal affect, speech normal and activity/motor behavior normal Skin: COMMON NORMALS: no rashes or lesions noted, no wounds and no jaundice Data : 03/11/21 11:55 03/11/21 11:55 Micro: Microbiology 03/11/21 18:30 Blood Culture - Preliminary Blood SPECIMEN COLLECTED 03/11/21 14:07 Blood Culture - Preliminary Blood SPECIMEN COLLECTED CT Head: My impression: moderate cerebral atrophy. mild cerebellar atrophy mild small vessel disease Radiologist's impression: 1. No evidence of intracranial hemorrhage or mass effect. 2. Mild small vessel changes. Moderate parenchymal volume loss. 3. A few secretions within the right maxillary sinus and sphenoid sinus. 4. No acute intracranial findings. CXR: My impression: no active cardiopulmonary disease Radiologist's impression: The lungs are clear and fully inflated. Normal cardiomediastinal structures. Bony elements are intact. IMPRESSION: 1. No acute cardiopulmonary finding. No change. A&P Assessment and plan (1) Hyponatremia: History of hyponatremia in labs. Will ask for urine lytes and osmololity Status: Acute (2) Leukocytosis: unknown etiology.. Urine is negative. Chest x-ray appears normal. Blood cultures are pending. Will follow. Status: Acute (3) Weakness: Physical therapy and Occupational Therapy consults and treat Status: Acute (4) Iron deficiency anemia: continue iron replacement Status: Acute Qualifiers: Iron deficiency anemia type: chronic blood loss Qualified Code(s): D50.0 - Iron deficiency anemia secondary to blood loss (chronic) (5) Major depressive disorder in partial remission: cont paxil Status: Chronic (6) Chronic insomnia: continue home meds Status: Acute (7) Diabetes: hold metformin in case of procedure Status: Acute (8) Hypotension: decreased toprol dose Status: Acute Additional A&P Information Dry mouth - stopped a few medications that may be contributing. consult pharmacy to assist. Attestations Medical Necessity Statement*: Patient with multiple medical conditions that are life-threatening. Patient requires work-up and treatment of these conditions. Patient will require over 2 midnight stay. 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
[2021-03-11 21:08] LABS: Thyroid Stimulating Hormone 2.28 uIU/mL (0.27-4.20); Vitamin B12 1951 pg/mL (232-1245)
[2021-03-11] MEDS: BuSPIRONE 10 mg Tablet 15 MG PO (21:36)
[2021-03-11] MEDS: quetiapine 300 mg Tablet PO (21:36)
[2021-03-11] MEDS: enoxaparin 40 mg/0.4 mL Syringe SUBCUT (21:36)
[2021-03-12] VITALS: BP 120/73; PULSE 113; RESP 18; TEMP 36.9; O2SAT 96
[2021-03-12 04:00] VITALS: BP 130/78; PULSE 99; RESP 18; TEMP 37.3; O2SAT 97
[2021-03-12] MEDS: PARoxetine 20 mg Tablet 60 MG PO (05:41)
[2021-03-12 06:02] LABS: Basophils # 0.1 10^3/uL (0.0-0.1); Basophils % 0.7 %; Eosinophils # 0.1 10^3/uL (0.0-0.8); Eosinophils % 0.8 %; Hematocrit 26.8 % (37.0-47.0); Hemoglobin 9.1 g/dL (11.5-15.3); Lymphocytes # 1.2 10^3/uL (0.8-4.8); Lymphocytes % 7.6 %; Mean Corpuscular Hemoglobin 28.9 pg (28.0-34.0); Mean Corpuscular Volume 85.1 fL (81-99); Mean Platelet Volume 8.7 fL (7.4-10.4); Monocytes % 6.5 %; Neutrophils # 13.25 10^3/uL (1.8-7.7); Neutrophils % 82.2 %; Nucleated Red Blood Cells % 0 %; Platelet Count 668 10^3/cmm (130-400); Red Blood Count 3.15 10^6/uL (4.1-5.3); Red Cell Distribution Width 13.5 % (12.1-15.1); White Blood Count 16.1 10^3/uL (4.0-10.0)
[2021-03-12 06:32] LABS: Anion Gap 14.5 (5-19); Blood Urea Nitrogen 7 mg/dL (8-23); Calcium 7.4 mg/dL (8.5-10.5); Carbon Dioxide 24 mmol/L (22-29); Chloride 93 mmol/L (98-107); Glomerular Filtration Rate 157.8 mL/min (90-130); Glucose 92 mg/dL (65-115); Osmolality Calculated 264 mOsm/kg (285-295); Potassium 3.5 mmol/L (3.5-5.1); Sodium 128 mmol/L (136-145); Thyroid Stimulating Hormone 2.69 uIU/mL (0.27-4.20)
[2021-03-12 08:00] VITALS: BP 123/64; PULSE 102; RESP 18; TEMP 36.6; O2SAT 95
[2021-03-12] MEDS: atorvastatin 40 mg Tablet 20 MG PO (09:22)
[2021-03-12] MEDS: BuSPIRONE 10 mg Tablet 15 MG PO ×2 (09:22→15:24)
[2021-03-12] MEDS: metoprolol succinate ER (24 HR) 50 mg Tablet 25 MG PO (09:23)
[2021-03-12] MEDS: pregabalin 75 mg Capsule PO (09:23)
[2021-03-12] MEDS: ferrous sulfate EC 325 mg Tablet PO (09:23)
[2021-03-12] MEDS: aspirin 81 mg EC Tablet PO (09:23)
[2021-03-12] MEDS: pantoprazole DR 40 mg Tablet PO (09:23)
[2021-03-12] MEDS: acyclovir 400 mg Tablet 200 MG PO (09:23)
--- NOTE | 2021-03-12 10:45 | PC.CHAP ---
Pastoral Care Encounter/Spiritual Assessment Type of Contact [] Declined superintendent maintenance visit [] Patient/Family/Request visit [] Outpatient visit [] Follow-up visit [] Physician referral [] Code/Alert [x] Routine visit [] Staff referral [] Actively dying [] Patient sleeping [] Family support [] [] Out of room [] Palliative care [] [] Receiving care in room [] Pre-surgical visit [] Trauma [] Long length of stay [] ICU visit [] Other: Relational/Emotional Strength [] Patient feels connected with others/family/visitors/staff [] Distress [] Loneliness/isolation [] Abandonment Spirituality of Patient [x] Person of Maya [] Attends Moravian of their Maya [] Believes in Prayer [] Reads Bible or Restoration materials [] There are Spiritual issues to be addressed Advertising Manager Interventions [x] Prayer [x] Active listening [] Non-anxious presence [] Spiritual/emotional support [] Crisis/trauma care [] Spiritual counseling [] Bereavement support [] Provided bereavement packet [] Provided Bible/devotional materials [] Provided toy/stuffed animal, coloring book to patient or family member [] Provided Communion [] Anointing/[place] [] Salvation [x] Completed spiritual assessment [] Other: Impact on Illness or Injury [] Angry [] Fearful [] Anxious [] Often cries [] Exhaustion [] Unable to work [] Unable to attend presybeterian [] Unable to walk/stand [] Unable to read [] Unable to drive [] Unable to eat/drink [] Unable to sleep [] Unable to be with family [] Patient intubated [] Other: Summary patient has trouble understanding Time spent with patient
[2021-03-12 11:41] VITALS: BP 124/78; PULSE 94; RESP 18; TEMP 36.7; O2SAT 98
[2021-03-12] MEDS: ondansetron 4 MG Tablet PO (14:32)
--- NOTE | 2021-03-12 15:39 | PM.DCS ---
Discharge Providers Date of Admission: 03/11/21 20:14 Date of Discharge: March 12, 2021 Attending Provider at Admission: Jorge Castellano DO Attending Provider at Discharge: Jorge Castellano DO Primary Care Provider: Karely Witt Diagnoses at Discharge Discharge Diagnosis (1) Hyponatremia: Status: Acute (2) Leukocytosis: Status: Acute (3) Weakness: Status: Acute (4) Iron deficiency anemia: Status: Acute Qualifiers: Iron deficiency anemia type: chronic blood loss Qualified Code(s): D50.0 - Iron deficiency anemia secondary to blood loss (chronic) (5) Major depressive disorder in partial remission: Status: Chronic (6) Chronic insomnia: Status: Acute (7) Diabetes: Status: Acute (8) Hypotension: Status: Acute Reason for Visit Reason for Visit: low BP, confusion, Fell down multiple times Hospital Course Hospital Course Patient was admitted for overall weakness frequent falls 1-2 times a day and not making much sense. Patient has a history of hyponatremia but this was her low end of her normal with a sodium of 125. She was also found to be hypotensive and hypoxic upon arrival. He was placed on oxygen even fluid resuscitation. I noted on CT head that patient has moderate amount of cerebral atrophy - this is on old films as well. I ordered a DEPUTY SHERIFF BUILDING GUARD for cognitive eval. Unfortunately, speech therapist commented that the performance on the mental status assessments indicate current cognitive and memory deficits. Please note her MoCA was 13 out of 30 which translates to a moderate degree of dementia. I did not relay this information to the patient and family as it was not available while I spoke with them. I did explain the diagnosis of cerebral atrophy as well as small vessel disease found on the CAT scan that I personally interpreted and radiology agreed with. I explained that numerous of the patient's medications are attributing to her mental fog weakness and frequent falls. Initially the patient and were adamant about the need for all these medications and such difficulty she has sleeping as well as with her mood and chronic pain. I suspect her insomnia is related some to this new diagnosis of dementia. At this time I do not recommend changing her medications in fact Seroquel is a very good medication for her. Due to hypotension I recommend stopping Norvasc which I did. She will be continued on metoprolol. I stopped Zyrtec and start her on Flonase nasal spray. I also stopped cyclobenzaprine and pregabalin. I am concerned with buspirone and Paxil however I am also concerned about her mood. A neurology consult would be appropriate as an outpatient for her diagnosis of dementia and assistance with medications. Perhaps something like Depakote 500 mg 3 times daily could be appropriate. While this was not addressed with the family I would like the patient's primary provider to know that I am concerned about her cardiology work-up in light of her cerebrovascular disease seen on CT. I am not sure this patient with her cognitive status is the best candidate for further surgical intervention. And I think avoidance of opioids is in this patient's best interest. I will leave this for the patient's primary provider Karely Witt to address an outpatient setting. I will note that the patient and stated that primary provider Karely Witt has been recommending avoidance and decrease in multiple medications however the patient and family have been resistant. It is my hope that after this hospitalization and explanation that Ms. Witt will have success eliminating or changing the patients medication list. Physical Exam Narrative: EXAM NARRATIVE: Patient is alert and oriented. is at the bedside. Patient feels nauseous and nauseous with a bucket at her side. Heart: Regular normal S1-S2 Lungs clear without wheezes rales or rhonchi Abdomen soft nontender nondistended positive bowel sounds extremities: No clubbing cyanosis or edema neuro: Patient is alert and oriented to self time and place but not to situation. She remains forgetful of details. Discharge Data Data Completed and Pending: Completed Studies During Hospitalization Category Date Time Status CT head wo con* [id number] Stat Cat Scan 03/11/21 11:20 Completed XR chest 1V sh[place]ell ble [id number] Stat Exams 03/11/21 11:20 Completed Pending at discharge Category Date Time Status Blood Culture Sta t Lab 03/11/21 18:30 Results Osmolality Urine Stat Lab 03/11/21 21:16 Ordered Urine Random Lyte s Stat Lab 03/11/21 21:16 Ordered Labs from last 24 hours 03/12/21 03/12/21 03/11/21 05:13 05:13 18:30 WBC 16.1 H RBC 3.15 L Hgb 9.1 L Hct 26.8 L MCV 85.1 MCH 28.9 MCHC 34.0 RDW 13.5 Plt Count 668 H MPV 8.7 Neut % (Auto) 82.2 Lymph % (Auto) 7.6 [place] % (Auto) 6.5 Eos % (Auto) 0.8 Baso % (Auto) 0.7 Neut # (Auto) 13.25 H Lymph # (Auto) 1.2 [place] # (Auto) 1.0 H Eos # (Auto) 0.1 Baso # (Auto) 0.1 Nucleated RBC % (a uto) 0 Nucleated RBCs # 0.0 Sodium 128 L Potassium 3.5 Chloride 93 L Carbon Dioxide 24 Anion Gap 14.5 BUN 7 L Creatinine 0.4 L GFR Calculation 157.8 H Glucose 92 Calculated Osmolal ity 264 L Calcium 7.4 L Troponin T Hi Sens 6Hr Troponin T Hi Sens 6Hr Delta Vitamin B12 1950 H TSH 2.69 2.28 03/11/21 18:30 WBC RBC Hgb Hct MCV MCH MCHC RDW Plt Count MPV Neut % (Auto) Lymph % (Auto) [place] % (Auto) Eos % (Auto) Baso % (Auto) Neut # (Auto) Lymph # (Auto) [place] # (Auto) Eos # (Auto) Baso # (Auto) Nucleated RBC % (a uto) Nucleated RBCs # Sodium Potassium Chloride Carbon Dioxide Anion Gap BUN Creatinine GFR Calculation Glucose Calculated Osmolal ity Calcium Troponin T Hi Sens 6Hr 11.83 H Troponin T Hi Sens 6Hr Delta -0.17 L Vitamin B12 TSH Vitals: Last Vital Signs Temp 98.1 F 03/12/21 11:41 Pulse 94 03/12/21 11:41 Resp 18 03/12/21 11:41 BP 124/78 03/12/21 11:41 Pulse Ox 98 03/12/21 11:41 Discharge Plan Discharge Patient Disposition: Home Condition: Fair Prescriptions: New fluticasone propionate [Flonase Allergy Relief] 50 mcg/actuation spray,suspension 2 spray intranasal DAILY Qty: 16 RF: 0 Continued metformin 500 mg tablet 500 mg PO BEDTIME RF: 0 hydrocodone-acetaminophen 10-325 mg tablet 1 tab PO Q4H PRN (Reason: Pain) RF: 0 vitamin B complex [B Complex-Vitamin B12] Tablet 1 tab PO DAILY RF: 0 Women's 50 Plus Multivitamin 400 mcg-500 mg calcium-20 mcg tablet 1 tab PO DAILY RF: 0 atorvastatin 20 mg tablet 20 mg PO DAILY RF: 0 aspirin 81 mg tablet,delayed release (DR/EC) 81 mg PO DAILY RF: 0 Hold Instructions: Resume on 03/12/20. Doctor's Order esomeprazole magnesium 40 mg capsule,delayed release(DR/EC) 40 mg PO BID RF: 0 acyclovir 200 mg capsule 200 mg PO BID RF: 0 linaclotide 290 mcg capsule 290 mcg PO DAILY PRN (Reason: Gastrointestinal Spasms Or Cramping) RF: 0 buspirone 15 mg tablet 15 mg PO TID Qty: 270 RF: 0 paroxetine HCl 20 mg tablet 60 mg PO QAM Qty: 270 RF: 0 Seroquel 100 mg tablet 100 mg PO BEDTIME Qty: 90 RF: 0 Seroquel 300 mg tablet 300 mg PO BEDTIME Qty: 90 RF: 0 amitriptyline 100 mg tablet 100 mg PO DAILY Qty: 90 RF: 0 eszopiclone 1 mg tablet 1 mg PO BEDTIME PRN (Reason: isomnia) RF: 0 metoprolol succinate 50 mg tablet extended release 24 hr 50 mg PO DAILY RF: 0 ferrous sulfate [Iron (ferrous sulfate)] 325 mg (65 mg iron) Tablet 325 mg PO DAILY RF: 0 Discontinued cyclobenzaprine 10 mg tablet 10 mg PO DAILY PRN (Reason: muscle spasm) RF: 0 cetirizine [Zyrtec] 10 mg tablet 10 mg PO DAILY RF: 0 pregabalin [Lyrica] 75 mg capsule 75 mg PO TID PRN (Reason: Pain) RF: 0 amlodipine 5 mg tablet 5 mg PO DAILY RF: 0 Discharge Orders: Discharge Order (Routine); Ordered 03/12/21 Ordered By: Jorge Castellano Referrals: Karely Witt PA [Primary Care Provider] - Discharge Diet: Advance as tolerated Discharge Activity: Increase activity as tolerated Patient Instructions: Opioid Safety Discharge Attestations Time Spent in Discharge Care*: greater than 30 min Specific Discharge Activities: educating and/or supporting family/caregiver, discussing with disease case manager rn/social workers/dc planners, documenting/other paperwork and evaluating patient/reviewing data Status at Discharge: Cognitive status at discharge: cognitively intact, Quality Metrics Clinical Quality Measures During this hospital stay, did patient experience: None Coding Level of Care Code Acute Chg FW DC note Diagnoses Hyponatremia E87.1 Leukocytosis D72.829 Weakness R53.1 Iron deficiency anemia D50.0 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
[2021-03-12 15:50] VITALS: BMI 28.6
[2021-03-12 16:00] VITALS: BP 108/52; PULSE 84; RESP 18; TEMP 37.2; O2SAT 93
[2021-03-12] MEDS: calcium carbonate 500 mg Chew Tablet 1000 MG PO (16:14)
[2021-03-12 18:21] VITALS: BP 108/52; PULSE 84; RESP 18; TEMP 37.2; O2SAT 93
--- NOTE | 2021-03-12 20:07 | PM.EVENT ---
Event Note Event Note: A Pharmacy Consult Was Conducted For Trini Marie Due To: [place] Fall Scale Risk Level: High Fall Risk On 03/11/21 21:00 And A Medication Fall Risk Score Greater Than 10. The Recommendations Are As Follows: 1 = sedation/fatigue/lethargy 2 = decreased alertness 3 = postural/orthostatic hypotension 4 = dizziness 5 = decreased neuromuscular function/ataxia 6 = decreased memory/cognitive impairment 7 = blurred vision 8 = confusion 9 = arrhythmias 10 = syncope 11 = anemia Paxil: 1,3,4,7,8,10 Hydrocodone/APAP 10/325m,2,3,4,5,6,7,8,9,10 Seroquel: 2,3,4,5,7,8 Lyrica: 1,3,4,5,6,7,8,10 Metoprolol: 1,2,3,4,5,9,10
== END 2021-03-12 18:00 | disposition home or self-care (01) | DRG 641 ==
LOC: ER 15:30 → MEDSURG 03-12 03:01
PROVIDERS: Admitting Provider Internal Medicine; Emergency Provider Family Medicine; PCP Physician Assistant; Visit Provider Internal Medicine
DX: E87.1 Hypo-osmolality and hyponatremia (principal); R29.6 Repeated falls; E86.0 Dehydration; F51.04 Psychophysiologic insomnia; G89.29 Other chronic pain; I10 Essential (primary) hypertension; G60.8 Other hereditary and idiopathic neuropathies; M51.34 Other intervertebral disc degeneration, thoracic region; F17.210 Nicotine dependence, cigarettes, uncomplicated; D50.0 Iron deficiency anemia secondary to blood loss (chronic); F32.4 Major depressive disorder, single episode, in partial remission; E11.9 Type 2 diabetes mellitus without complications; I95.9 Hypotension, unspecified; Z79.82 Long term (current) use of aspirin; Z79.891 Long term (current) use of opiate analgesic; F03.90 Unspecified dementia, unspecified severity, without behavioral disturbance, psychotic disturbance, mood disturbance, and anxiety
CPT/HCPCS: 36415; 70450; 71045; 80048; 80053; 81003; 82550; 82607; 84443; 84484; 85025; 87040; 92523; 93005; 96365; 96372; 97161; 97165; 99285; J1650; J1956; J7040; J8499; Q0162

== ENCOUNTER 2021-03-15 13:18 | Emergency (ER) | payer MEDICARE, OTHER, SELFPAY ==
[2021-03-15 13:30] VITALS: BP 120/67; PULSE 85; RESP 16; TEMP 36.5; O2SAT 95; BMI 25.1
--- NOTE | 2021-03-15 13:39 | CT_ITS ---
WS: [id number] Exam: CT cervical spin wo con* [id number] Date/Time of Exam: 03/15/2021 2:34 PM Reason For Exam: trauma DLP: 515.[address] scans at [facility] use at least one of these dose optimization techniques: automat ed exposure control; mA and/or kV adjustment per patient size (includes targeted exams where dose is matched to clinical indication); or iterative reconstruction. The C-spine is evaluated in the axial plane with sagittal and coronal reformatted images. No acute fracture or dislocation. There is degenerative anterolisthesis of C3 on C4 and C4 on C5. Deg enerative disc narrowing and spondylosis from C5 to C7. Left neural foraminal stenosis at C3-4 and C4 -5. Facet arthropathy at all levels. Posterior disc bulge osteophyte complex at C5-6 and C6-7. Parasp inal soft tissues are unremarkable. Lung apices are clear. CT/CT cervical spin wo con* [id number] IMPRESSION: 1. No acute fracture or dislocation. 2. Degenerative anterolisthesis of C3 on C4 and C4 on C5. 3. Degenerative disc changes and spondylosis and several levels of the neural f oraminal stenosis as detailed above. 4. Posterior disc bulge osteophyte complex at C5-6 and C6-7.
--- NOTE | 2021-03-15 13:39 | XR_ITS ---
WS: [id number] Exam: XR chest 1V portable [id number] Date/Time of Exam: 03/15/2021 1:39 PM Reason For Exam: dyspnea/cough Comparison 03/11/2021. The lungs are fully inflated and clear. Normal cardiomediastinal structures. No pleural effusions. [place] elements are intact. XR/XR chest 1V portable [id number] IMPRESSION: 1. No acute cardiopulmonary finding. No change.
--- NOTE | 2021-03-15 13:39 | CT_ITS ---
WS: [id number] Exam: CT head wo con* [id number] Date/Time of Exam: 03/15/2021 2:34 PM Reason For Exam: trauma DLP: 1790.[address] scans at [facility] use at least one of these dose optimization techniques: automat ed exposure control; mA and/or kV adjustment per patient size (includes targeted exams where dose is matched to clinical indication); or iterative reconstruction. Comparison 03/11/2021. No sign of acute intracranial bleed or space-occupying mass. Diffuse cerebral atrophy with volume los s. The ventricles and basal cisterns are unremarkable in appearance. The skull is intact. The mastoid s are clear. Mild right maxillary and sphenoid sinus disease. Minimal fluid in the ethmoid sinuses. R emaining facial sinuses are clear. CT/CT head wo con* [id number] IMPRESSION: 1. No acute intracranial finding. 2. Diffuse cerebral atrophy. 3. Mild paranasal sinus disease. 4. No significant change since most recent exam.
--- NOTE | 2021-03-15 13:53 | W.ED.FALL ---
HPI - Fall General: Chief Complaint: Fall Stated Complaint: FALL/ + LOC Time Seen by Provider: 03/15/21 13:33 History of Present Illness: HPI Narrative: 71-year-old female presents emergency room via EMS after falling while trying to get into her car she states her right knee gave out she has had problems with that before and evidently been evaluated. She told the nurse there was a loss of consciousness however when I went in to see the patient she denies any loss of consciousness. We did admit her a few days ago for hyponatremia. Is not on any anticoagulants. She denies any other pain in any of her other extremities or in her neck she is in a c-collar at this time. complaint: fall Onset (ago): minute(s) Fall from: standing Place fall occurred: street Loss of consciousness: Unsure (Patient gives varying responses to myself and the nurse as to whether or not she lost consciousness) Prolonged down time: no Symptoms prior to fall: none Context: tripped/slipped Location of injury: head Associated symptoms-after fall: Reports confusion; Denies abdominal pain, chest pain, difficulty walking, headache(s), hematuria, lightheadedness, neck pain, numbness, short of breath, vertigo or weakness Review of Systems Card: Denies: chest pain or lightheadedness Resp: Denies: dyspnea, productive cough or non-productive cough GI: Denies: abdominal pain : Denies: hematuria Musc: Denies: neck pain Neuro: Reports: confusion; Denies: headache(s), difficulty walking or vertigo FORMERLY [facility], 1928–1983 ED PFSH: Medical History Chronic insomnia Chronic pain Diabetes Drug side effects History of broken leg 05/03/2019 Dr. 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 Micheal Andres: Left L3-L4, L4-L5 laminotomy/foraminotomy 09/2012 [place], [place]: L2-L3 with bilateral pedicle screws and verticle rods. Left L2-L3 hemilaminectomy Family History Father Diabetes Mother Diabetes Social History Smoking and tobacco status: current every day smoker cigarettes Years cigarettes smoked: 35 Alcohol intake: never Household members: spouse Marital status: Current occupational status: retired History of recent travel: No Physical Exam Const: COMMON NORMALS: no acute distress GENERAL APPEARANCE: cooperative and comfortable ORIENTATION/CONSCIOUSNESS: Yes awake HENMT: COMMON NORMALS: normocephalic, hearing grossly normal bilaterally, external ears normal, EAC's normal, TM's normal bilaterally, Normal nasal mucous membranes and turbinates present, moist oral mucous membranes and oropharynx normal HEAD & SCALP: normocephalic NOSE: Normal nasal mucous membranes and turbinates present EXTERNAL EAR: Yes external ears normal EXTERNAL AUDITORY CANAL: EAC's normal TYMPANIC MEMBRANE: TM's normal bilaterally OTHER: Abrasion on the scalp right of the occiput. No full-thickness laceration Eye: COMMON NORMALS: Equal, round and reactive pupils present, EOMs intact bilaterally, conjunctivae normal and no scleral icterus CONJUNCTIVA: Yes conjunctivae normal PUPIL: Yes Equal, round and reactive pupils present Neck/C-Spine: COMMON NORMALS: no JVD Resp: COMMON NORMALS: normal respiratory effort, No retractions, No use of accessory muscles and clear to auscultation bilaterally AUSCULTATION: clear to auscultation bilaterally Cardio: COMMON NORMALS: no JVD, regular rate, regular rhythm and No murmurs present (Cardio) RATE: regular rate RHYTHM: regular rhythm GI: COMMON NORMALS: Soft to palpation and No hepatosplenomegaly present AUSCULTATION: Yes normoactive bowel sounds PALPATION: Yes Soft to palpation, No Tenderness to palpation present (GI), No Guarding due to palpation present (GI) and Yes No hepatosplenomegaly present Extremity: COMMON NORMALS: normal to inspection, capillary refill normal, no clubbing, cyanosis or edema, no calf tenderness and no pedal edema Skin: COMMON NORMALS: no rashes or lesions noted GENERAL SKIN EXAM: no rashes or lesions noted Course Vital Signs: Vital signs: Vital Signs Temperature 97.7 F 03/15/21 13:30 Pulse Rate 78 03/15/21 15:40 Respiratory Rate 16 03/15/21 15:40 Blood Pressure 128/70 03/15/21 15:40 Pulse Oximetry 96 03/15/21 15:40 MDM - Fall MDM Narrative: Medical decision making narrative: Offered patient admission E. Explained patient refuses. Discharge home anti-inflammatories prescribed hydrocodone as needed follow-up as needed I did strongly encourage her to follow-up with her primary care doctor to have her sodium rechecked early next week return if has problems. Her white count is elevated suspect that is demargination from the stress of the fall. Lab Data: Labs: Lab Results 03/15/21 03/15/21 03/15/21 Range/Units 13:48 15:12 15:12 WBC 24.0 H (4.0-10.0) 10^3/ uL RBC 3.25 L (4.1-5.3) 10^6/u L Hgb 9.5 L (11.5-15.3) g/dL Hct 27.3 L (37.0-47.0) % MCV 84.0 (81-99) fL MCH 29.2 (28.0-34.0) pg MCHC 34.8 (30.0-36.0) g/dL RDW 13.5 (12.1-15.1) % Plt Count 637 H (130-400) 10^3/c mm MPV 8.6 (7.4-10.4) fL Neut % (Auto) 89.6 % Lymph % (Auto) 3.4 % [place] % (Auto) 2.8 % Eos % (Auto) 0.2 % Baso % (Auto) 0.3 % Neut # (Auto) 21.50 H (1.8-7.7) 10^3/u L Lymph # (Auto) 0.8 (0.8-4.8) 10^3/u L [place] # (Auto) 0.7 (0.2-0.9) 10^3/u L Eos # (Auto) 0.0 (0.0-0.8) 10^3/u L Baso # (Auto) 0.1 (0.0-0.1) 10^3/u L Nucleated RBC % (a uto) 0 % Nucleated RBCs # 0.0 /100WBC Specimen Type Arterial Sample Site Radial, right ABG pH 7.43 (7.35-7.45) ABG pCO2 37.1 (35-45) mmHg ABG pO2 73.2 L (80.0-100.0) mmH g ABG HCO3 24.3 (22-26) mmol/L ABG O2 Saturation 94.8 ABG Base Excess 0.0 (-2.0-2.0) mmol/ L Paco Test Pos A-a O2 Gradient 3.9 L (5-10) mmHg Hematocrit 28.7 L (37-47) % Hgb O2 Saturation 92.3 L (95-100) % Carboxyhemoglobin 1.8 (0.4-20.1) %THgb Methemoglobin 0.8 (0.4-1.5) % Total Hemoglobin 9.4 L (12-16) g/dL Sodium 120.0 L 122 L (131-143) mmol/L Potassium 3.3 L 3.6 (3.5-5.0) mmol/L Glucose 114.0 118 H (70-115) mg/dL Ionized Calcium 1.1 (1.1-1.4) mmol/L O2 Delivery Device Room air FiO2 21.0 % Certified Optician ID Ed Chloride 86 L (98-107) mmol/L Carbon Dioxide 24 (22-29) mmol/L Anion Gap 15.6 (5-19) BUN 10 (8-23) mg/dL Creatinine 0.6 (0.5-0.9) mg/dL GFR Calculation 98.8 (90-130) mL/min Calculated Osmolal ity 254 L (285-295) mOsm/k g Calcium 7.5 L (8.5-10.5) mg/dL Total Bilirubin 0.3 (0.15-1.2) mg/dL AST 21 (0-32) U/L ALT 31 (0-33) U/L Alkaline Phosphata se 177 H (35-105) IU/L Total Protein 4.9 L (6.6-8.7) g/dL Albumin 2.6 L (3.5-5.2) g/dL Globulin 2.3 (1.3-4.6) g/dL Discharge Plan Discharge Patient Disposition: Home Clinical Impression: Fall, Hyponatremia, Closed head injury Condition: Stable Prescriptions: No Action metformin 500 mg tablet 500 mg PO BEDTIME RF: 0 hydrocodone-acetaminophen 10-325 mg tablet 1 tab PO Q4H PRN (Reason: Pain) RF: 0 vitamin B complex [B Complex-Vitamin B12] Tablet 1 tab PO DAILY RF: 0 Women's 50 Plus Multivitamin 400 mcg-500 mg calcium-20 mcg tablet 1 tab PO DAILY RF: 0 atorvastatin 20 mg tablet 20 mg PO DAILY RF: 0 esomeprazole magnesium 40 mg capsule,delayed release(DR/EC) 40 mg PO BID RF: 0 acyclovir 200 mg capsule 200 mg PO BID RF: 0 linaclotide 290 mcg capsule 290 mcg PO DAILY PRN (Reason: Gastrointestinal Spasms Or Cramping) RF: 0 buspirone 15 mg tablet 15 mg PO TID Qty: 270 RF: 0 paroxetine HCl 20 mg tablet 60 mg PO QAM Qty: 270 RF: 0 Seroquel 100 mg tablet 100 mg PO BEDTIME Qty: 90 RF: 0 Seroquel 300 mg tablet 300 mg PO BEDTIME Qty: 90 RF: 0 eszopiclone 1 mg tablet 1 mg PO BEDTIME PRN (Reason: isomnia) RF: 0 fluticasone propionate [Flonase Allergy Relief] 50 mcg/actuation spray,suspension 2 spray intranasal DAILY Qty: 16 RF: 0 cyclobenzaprine 10 mg tablet 10 mg PO TID RF: 0 diclofenac potassium 50 mg tablet 50 mg PO BID RF: 0 Lyrica 75 mg Capsule 75 mg PO QID PRN (Reason: Pain) RF: 0 amitriptyline 100 mg tablet 100 mg PO BEDTIME RF: 0 metoprolol succinate 50 mg tablet extended release 24 hr 50 mg PO DAILY RF: 0 ferrous sulfate [Iron (ferrous sulfate)] 325 mg (65 mg iron) Tablet 325 mg PO DAILY RF: 0 Discharge Orders: Discharge ED (Routine); Ordered 03/15/21 Ordered By: Juan Daniel Ramesh Referrals: Karely Witt PA [Primary Care Provider] - Discharge Diet: Usual diet Discharge Activity: Resume usual activity Patient Instructions: Opioid Safety Activity Restrictions/Additional Instructions: Check your sodium with your primary care doctor on Thursday in 3 days. Return to emergency room if you have problems. Coding Level of Care Code ED Product Design Specialist for Chg Fwd Exam Comprehensive
[2021-03-15 13:59] LABS: ABG PCO2 37.1 mmHg (35-45); ABG PH Result 7.43 (7.35-7.45); Alveolar-Arterial Oxygen Gradi 3.9 mmHg (5-10); Arterial Blood Gas Hematocrit 28.7 % (37-47); Blood Gas Allen Test Pos; Blood Gas Operator Identificat ED; Blood Gas Sample Site Radial, right; Blood Gas Sample Type Arterial; Carboxyhemoglobin 1.8 %THgb (0.4-20.1); HCO3 ABG 24.3 mmol/L (22-26); HGB O2 Sat 92.3 % (95-100); Ionized Calcium Level - ABG 1.1 mmol/L (1.1-1.4); Methemoglobin 0.8 % (0.4-1.5); Oxygen Device ROOM AIR; Oxygen Saturation ABG 94.8; PO2 ABG 73.2 mmHg (80.0-100.0); Potassium Level - ABG 3.3 mmol/L (3.5-5.0); Total Hemoglobin 9.4 g/dL (12-16)
[2021-03-15 14:08] VITALS: BP 112/63; PULSE 84; RESP 16; O2SAT 98
[2021-03-15 15:26] LABS: Basophils # 0.1 10^3/uL (0.0-0.1); Basophils % 0.3 %; Eosinophils % 0.2 %; Hematocrit 27.3 % (37.0-47.0); Hemoglobin 9.5 g/dL (11.5-15.3); Lymphocytes # 0.8 10^3/uL (0.8-4.8); Lymphocytes % 3.4 %; Mean Corpuscular HGB Conc 34.8 g/dL (30.0-36.0); Mean Corpuscular Hemoglobin 29.2 pg (28.0-34.0); Mean Platelet Volume 8.6 fL (7.4-10.4); Monocytes # 0.7 10^3/uL (0.2-0.9); Monocytes % 2.8 %; Neutrophils % 89.6 %; Nucleated Red Blood Cells % 0 %; Platelet Count 637 10^3/cmm (130-400); Red Blood Count 3.25 10^6/uL (4.1-5.3); Red Cell Distribution Width 13.5 % (12.1-15.1)
[2021-03-15 15:40] VITALS: BP 128/70; PULSE 78; RESP 16; O2SAT 96
[2021-03-15 15:44] LABS: Alanine Aminotransferase 31 U/L (0-33); Albumin Level 2.6 g/dL (3.5-5.2); Alkaline Phosphatase 177 IU/L (35-105); Anion Gap 15.6 (5-19); Aspartate Amino Transferase 21 U/L (0-32); Blood Urea Nitrogen 10 mg/dL (8-23); Calcium 7.5 mg/dL (8.5-10.5); Carbon Dioxide 24 mmol/L (22-29); Chloride 86 mmol/L (98-107); Creatinine Clr Calc Pharmacy 63.6286; Globulin 2.3 g/dL (1.3-4.6); Glomerular Filtration Rate 98.8 mL/min (90-130); Glucose 118 mg/dL (65-115); Osmolality Calculated 254 mOsm/kg (285-295); Potassium 3.6 mmol/L (3.5-5.1); Sodium 122 mmol/L (136-145); Total Bilirubin 0.3 mg/dL (0.15-1.2); Total Protein 4.9 g/dL (6.6-8.7)
== END 2021-03-15 16:22 | disposition home or self-care (01) ==
PROVIDERS: Emergency Provider Family Medicine; PCP Physician Assistant
DX: S09.8XXA Other specified injuries of head, initial encounter (principal); E87.1 Hypo-osmolality and hyponatremia; E11.9 Type 2 diabetes mellitus without complications; I10 Essential (primary) hypertension; W19.XXXA Unspecified fall, initial encounter
CPT/HCPCS: 36600; 70450; 71045; 72125; 80051; 80053; 82330; 82805; 85025; 99283

== ENCOUNTER 2021-04-16 09:55 | Emergency (ER) | payer MEDICARE, OTHER, SELFPAY ==
[2021-04-16 10:17] VITALS: PULSE 89; RESP 18; TEMP 36.4; O2SAT 97; BMI 20.5
--- NOTE | 2021-04-16 10:46 | XR_ITS ---
WS: [id number] LEFT HAND: 3 VIEW(S) TECHNIQUE: PA, oblique and lateral. HISTORY: left hand injury COMPARISON: None available. Transverse fracture through the base distal phalanx third finger. Very minimal displacement. No invol vement of the DIP joint. Large amount of soft tissue edema surrounding the distal third finger. Otherwise diffuse mild interphalangeal joint space narrowing and osteopenia. XR/XR hand LT min 3V* [id number] IMPRESSION: Nondisplaced transverse fracture base distal phalanx third finger.
--- NOTE | 2021-04-16 10:52 | W.ED.WOUNDLC ---
HPI - Wound/Laceration General: Chief Complaint: Wound/Laceration Stated Complaint: fall, finger injury Time Seen by Provider: 04/16/21 10:47 History of Present Illness: HPI narrative: Patient is a 71-year-old female comes to the ED with an injury to finger. Injury occurred just prior to arrival. Patient says she had her third digit of left hand caught in a door and she fell. This caused an injury to the distal aspect of third digit. Patient says just below the nail bed her finger was almost completely amputated. Patient says her distal finger was at a 90 degree angle and she ended up move it back in place. She states there is minimal bleeding. She is up-to-date on her tetanus. Associated symptoms: Denies chills, fever(s), nausea or vomiting Review of Systems Const: Denies: fever(s), chills or fatigue Eyes: Denies: change in vision or eye discomfort ENMT: Denies: throat pain, odynophagia, nasal discharge or nasal congestion Card: Denies: chest pain, palpitations, edema, swelling of feet/ankles, dyspnea on exertion or orthopnea Resp: Denies: dyspnea, productive cough or non-productive cough GI: Denies: abdominal pain, nausea, vomiting, diarrhea, constipation or hematochezia : Denies: flank pain, dysuria or hematuria Musc: Reports: extremity pain (Near amputation of distal end of third digit.); Denies: neck pain, back pain or extremity swelling Skin/Breast: Denies: rash or new lesions Neuro: Denies: headache(s), numbness in extremities or weakness in extremities PFS ED PFSH: Medical History Chronic insomnia Chronic pain Diabetes Drug side effects History of broken leg 05/03/2019 Dr. 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 Micheal Andres: Left L3-L4, L4-L5 laminotomy/foraminotomy 09/2012 [place], [place]: L2-L3 with bilateral pedicle screws and verticle rods. Left L2-L3 hemilaminectomy Family History Father Diabetes Mother Diabetes Social History Smoking and tobacco status: current every day smoker cigarettes Years cigarettes smoked: 35 Alcohol intake: never Household members: spouse Marital status: Current occupational status: retired History of recent travel: No Physical Exam Const: COMMON NORMALS: no acute distress, patient oriented x3 and alert GENERAL APPEARANCE: cooperative and comfortable HENMT: COMMON NORMALS: normocephalic HEAD & SCALP: normocephalic MOUTH: Normal oral and palatal mucosa present THROAT: posterior oropharynx normal and uvula midline Neck/C-Spine: COMMON NORMALS: supple GENERAL: Yes normal visual inspection Resp: COMMON NORMALS: normal respiratory effort, No retractions, No use of accessory muscles and clear to auscultation bilaterally AUSCULTATION: clear to auscultation bilaterally Cardio: COMMON NORMALS: regular rate, regular rhythm, S1 normal heart sound present, S2 normal heart sound present, No gallops present (Cardio), No clicks present (Cardio), No murmurs present (Cardio) and Peripheral pulses 2+ throughout RATE: regular rate RHYTHM: regular rhythm HEART SOUNDS: S1 normal heart sound present and S2 normal heart sound present PERIPHERAL PULSES: Peripheral pulses 2+ throughout GI: COMMON NORMALS: Normal to inspection, nondistended, normoactive bowel sounds present, Soft to palpation, non-tender and no masses PALPATION: Yes Soft to palpation : COMMON NORMALS: Yes no CVA tenderness BLADDER/KIDNEY EXAM: Yes no CVA tenderness Back/Pelvis: COMMON NORMALS: no CVA tenderness Extremity: NARRATIVE EXTREMITY EXAM: Left hand?third digit?distal phalanx is almost completely amputated just superior to the nailbed. The laceration goes all the way around to her finger pad region where there is just a little bit of skin left there that is keeping distal phalanx attached. GENERAL: Yes normal exam except as noted Neuro: COMMON NORMALS: patient oriented x3 and moves all extremities SENSORIUM/ORIENTATION: Yes alert Skin: GENERAL SKIN EXAM: dry skin Procedures Laceration Laceration 1: Site: hand (distal 3rd digit) Side (If applicable): left Size (cm): 3 Description: linear and clean Depth: simple, single layer Local Anesthetic: lidocaine 2% (digital block) Pre-repair: irrigated extensively (With normal saline and iodine wash.) Skin layer closed with: nylon Size (cm): 3-0 Number of sutures: 7 Technique: simple, interrupted Nerve Block Nerve Block 1: Time out performed: Yes Local Anesthetic: lidocaine 2% Amount of anesthesia used (mL): 15 Side: left Nerve Blocks: digital (3rd digit) Procedure Successful: Yes Patient Tolerated Procedure: well Complications: none Course Consultations: Consultation #1: i contacted Dr. Leahy the Ortho hand specialist at [facility]. I sent her pictures of patient's fracture and she agreed to see patient in her clinic within the next couple days. She said the office would contact patient to set up an appointment. She wanted me to place a couple sutures and to keep finger attached placed in splint and discharged home. Vital Signs: Vital signs: Vital Signs Temperature 97.6 F 04/16/21 10:17 Pulse Rate 85 04/16/21 13:32 Respiratory Rate 18 04/16/21 13:32 Blood Pressure 113/59 04/16/21 13:32 Pulse Oximetry 100 04/16/21 13:32 MDM - Wound/Laceration MDM Narrative: Medical decision making narrative: pt is a 71 y/o female that comes to the ED with a partial amuputation of distal 3rd digit on left hand. Left hand xr-Nondisplaced transverse fracture base distal phalanx third finger. I contacted Dr. Leahy the ortho hand specialist at [facility]. She will see the pt at her clinic and her office will be contacting pt to set up an appointment. performed a digital block on 3rd digit using lidocaine 2% and placed 7 sutures per Ortho Hand specialist request. pt was put in a finger splint and discharged home on cephalexin. return to ED precautions given. pt understood and agreed with plan. Imaging Data^: Xray Ortho: Attestation: I personally reviewed and interpreted this imaging study as follows: Radiologist's impression: [address] [address]JSdo ReportSigned Patient: Trini Marie #: [id number]: 1Acct#:[id number]/Sex: 71 / FADM Date: 04/16/21Loc: ERRoom/Bed:Attending Dr: Ordering Provider/Ordering MD: Pepito Cuello Date of Service: 04/16/21 Procedure(s): XR hand LT min 3V* [id number] Accession Number(s): [id number] Report Number: [id number] WS: [id number] LEFT HAND: 3 VIEW(S) TECHNIQUE: PA, oblique and lateral. HISTORY: left hand injury COMPARISON: None available. Transverse fracture through the base distal phalanx third finger. Very minimal displacement. No involvement of the DIP joint. Large amount of soft tissue edema surrounding the distal third finger. Otherwise diffuse mild interphalangeal joint space narrowing and osteopenia. XR/XR hand LT min 3V* [id number] IMPRESSION: Nondisplaced transverse fracture base distal phalanx third finger. Dictated By:Nighat Murrieta DOSigned By:Nighat Murrieta DOSigned Date/Time:04/16/21 1101DD/ 1100 Discharge Plan Discharge Patient Disposition: Home Clinical Impression: Fracture of distal phalanx of finger Qualifiers: Encounter type: initial encounter Finger: middle finger Fracture type: open Fracture alignment: nondisplaced Laterality: left Qualified Code(s): S62.663B - Nondisplaced fracture of distal phalanx of left middle finger, initial encounter for open fracture Amputation of finger tip Qualifiers: Encounter type: initial encounter Qualified Code(s): S68.119A - Complete traumatic metacarpophalangeal amputation of unspecified finger, initial encounter Condition: Stable Prescriptions: New cephalexin 500 mg capsule 500 mg PO Q6H 7 Days Qty: 28 RF: 0 No Action hydrocodone-acetaminophen 10-325 mg tablet 1 tab PO Q4H PRN (Reason: Pain) RF: 0 vitamin B complex [B Complex-Vitamin B12] Tablet 1 tab PO DAILY RF: 0 Women's 50 Plus Multivitamin 400 mcg-500 mg calcium-20 mcg tablet 1 tab PO DAILY RF: 0 atorvastatin 20 mg tablet 40 mg PO DAILY RF: 0 esomeprazole magnesium 40 mg capsule,delayed release(DR/EC) 40 mg PO BID RF: 0 acyclovir 200 mg capsule 200 mg PO BID RF: 0 paroxetine HCl 20 mg tablet 60 mg PO QAM Qty: 270 RF: 0 Seroquel 100 mg tablet 100 mg PO BEDTIME Qty: 90 RF: 0 eszopiclone 1 mg tablet 1 mg PO BEDTIME PRN (Reason: isomnia) RF: 0 fluticasone propionate [Flonase Allergy Relief] 50 mcg/actuation spray,suspension 2 spray intranasal DAILY Qty: 16 RF: 0 pregabalin [Lyrica] 75 mg Capsule 75 mg PO QID PRN (Reason: Pain) RF: 0 ropinirole 2 mg tablet 2 mg PO DAILY RF: 0 Discharge Orders: Discharge ED (Routine); Ordered 04/16/21 Ordered By: Pepito Cuello Referrals: Karely Witt PA [Primary Care Provider] - Discharge Diet: Regular Discharge Activity: Limit activity as instructed Patient Instructions: Fractures - Phalanx (Finger), Finger Amputation (ED) Activity Restrictions/Additional Instructions: Follow-up with medical provider as directed. Dr. Leahy's ([facility] Ortho Hand Specialist) office should be contacting you to set up an appointment within the next couple days. Take medications as prescribed. Return to the ER or your medical provider if condition worsens. Please read and understand discharge instructions. Thank you for choosing [facility] for your healthcare needs today. Please realize this is an emergency room and that we are providing you with a medical screening exam and this may not be complete and all inclusive of all the testing and or work up that you may need to determine your ailment or severity of your illness. It is very important that you follow up as instructed or that you return to the Emergency Department should you have concerns or if your condition changes or worsens in any way. Coding Level of Care Code ED Commercial Loan Collection Officer for Gilbert Fwandrey Exam Comprehensive
[2021-04-16] MEDS: HYDROcodone-acetaminophen 5-325 mg Tablet 1 TAB PO (11:07)
[2021-04-16 11:09] VITALS: BP 94/69; PULSE 88; RESP 16; O2SAT 99
[2021-04-16 12:17] VITALS: BP 102/66; PULSE 83; RESP 18; O2SAT 93
[2021-04-16 13:11] VITALS: BP 106/67; PULSE 82; RESP 18; O2SAT 100
[2021-04-16] MEDS: cephALEXin 500 mg Capsule PO (13:12)
--- NOTE | 2021-04-16 13:28 | PC.NURSE ---
Wound cleaned, bandaged and finger splint placed at this time. Patient tolerated well.
[2021-04-16 13:32] VITALS: BP 113/59; PULSE 85; RESP 18; O2SAT 100
== END 2021-04-16 13:32 | disposition home or self-care (01) ==
PROVIDERS: Emergency Provider Physician Assistant; PCP Physician Assistant
DX: S62.663B Nondisplaced fracture of distal phalanx of left middle finger, initial encounter for open fracture (principal); E11.9 Type 2 diabetes mellitus without complications; I10 Essential (primary) hypertension; F17.210 Nicotine dependence, cigarettes, uncomplicated; W23.0XXA Caught, crushed, jammed, or pinched between moving objects, initial encounter; W19.XXXA Unspecified fall, initial encounter
CPT/HCPCS: 12002; 64450; 73130; 99283

== ENCOUNTER → 2021-05-07 10:38 | Outpatient (BNVA) | payer MEDICARE, OTHER, SELFPAY | PROVIDERS: PCP Physician Assistant; Visit Provider Nurse Practitioner Psychiatric/Mental Health | DX: F32.4 Major depressive disorder, single episode, in partial remission (principal); G89.29 Other chronic pain; F51.04 Psychophysiologic insomnia | CPT/HCPCS: 99214 ==

== ENCOUNTER → 2021-06-04 07:40 | Outpatient (BNVA) | payer MEDICARE, OTHER, SELFPAY | PROVIDERS: PCP Physician Assistant; Visit Provider Nurse Practitioner Psychiatric/Mental Health | DX: F33.9 Major depressive disorder, recurrent, unspecified (principal); F51.04 Psychophysiologic insomnia; G89.29 Other chronic pain | CPT/HCPCS: 99213 ==

== ENCOUNTER → 2021-06-24 10:20 | Outpatient (BNVA) | payer MEDICARE, OTHER, SELFPAY | PROVIDERS: PCP Physician Assistant; Visit Provider Nurse Practitioner Psychiatric/Mental Health | DX: F33.9 Major depressive disorder, recurrent, unspecified (principal); F51.04 Psychophysiologic insomnia; Z03.89 Encounter for observation for other suspected diseases and conditions ruled out; G89.29 Other chronic pain | CPT/HCPCS: 80048; 99214 ==

== ENCOUNTER → 2021-07-12 07:53 | Day surgery (SDC) | payer MEDICARE, OTHER, SELFPAY ==
[2021-07-12 08:39] VITALS: BMI 20.9
[2021-07-12 08:41] VITALS: BP 128/87; PULSE 86; RESP 18; TEMP 36.4; O2SAT 98
[2021-07-12] MEDS: cosyntropin 0.25 mg SDV IVP (08:54)
[2021-07-12 09:44] LABS: Cosyntropin Baseline 17.57 mcg/dL
[2021-07-12 10:15] LABS: Cosyntropin 30 Minute 27.16 mcg/dL
== END ==
PROVIDERS: PCP Physician Assistant; Visit Provider Internal Medicine
DX: E11.9 Type 2 diabetes mellitus without complications (principal); D72.829 Elevated white blood cell count, unspecified; E87.1 Hypo-osmolality and hyponatremia
CPT/HCPCS: 36415; 82533; 96374; J0834

== ENCOUNTER → 2021-07-22 08:18 | Outpatient (BNVA) | payer MEDICARE, OTHER, SELFPAY | PROVIDERS: PCP Physician Assistant; Visit Provider Nurse Practitioner Psychiatric/Mental Health | DX: F33.9 Major depressive disorder, recurrent, unspecified (principal); F51.04 Psychophysiologic insomnia; Z03.89 Encounter for observation for other suspected diseases and conditions ruled out; G89.29 Other chronic pain | CPT/HCPCS: 99212 ==

== ENCOUNTER → 2021-09-03 08:45 | Outpatient (BNVA) | payer MEDICARE, OTHER, SELFPAY | PROVIDERS: PCP Physician Assistant; Visit Provider Nurse Practitioner Psychiatric/Mental Health | DX: F33.9 Major depressive disorder, recurrent, unspecified (principal); F51.04 Psychophysiologic insomnia; G89.29 Other chronic pain; Z03.89 Encounter for observation for other suspected diseases and conditions ruled out | CPT/HCPCS: 99214 ==

== ENCOUNTER → 2021-10-01 09:00 | Outpatient (BNVA) | payer MEDICARE, OTHER, SELFPAY | PROVIDERS: PCP Physician Assistant; Visit Provider Nurse Practitioner Psychiatric/Mental Health | DX: F33.9 Major depressive disorder, recurrent, unspecified (principal); F51.04 Psychophysiologic insomnia; Z03.89 Encounter for observation for other suspected diseases and conditions ruled out; G89.29 Other chronic pain | CPT/HCPCS: 99213 ==

== ENCOUNTER → 2021-11-04 13:35 | Outpatient (BNVA) | payer MEDICARE, OTHER, SELFPAY | PROVIDERS: PCP Physician Assistant; Referring Provider Physician Assistant; Visit Provider Specialist | DX: R11.0 Nausea (principal); G43.711 Chronic migraine without aura, intractable, with status migrainosus; R63.4 Abnormal weight loss; Z68.20 Body mass index [BMI] 20.0-20.9, adult; Z79.899 Other long term (current) drug therapy | CPT/HCPCS: 96116; 99205 ==

== ENCOUNTER → 2021-11-12 07:42 | Outpatient (BNVA) | payer MEDICARE, OTHER, SELFPAY | PROVIDERS: PCP Physician Assistant; Visit Provider Nurse Practitioner Psychiatric/Mental Health | DX: F33.9 Major depressive disorder, recurrent, unspecified (principal); Z03.89 Encounter for observation for other suspected diseases and conditions ruled out; G89.29 Other chronic pain; F51.04 Psychophysiologic insomnia | CPT/HCPCS: 99214 ==

== ENCOUNTER → 2021-12-02 07:55 | Outpatient (BNVA) | payer MEDICARE, OTHER, SELFPAY | PROVIDERS: PCP Physician Assistant; Visit Provider Specialist | DX: R11.0 Nausea (principal); R63.4 Abnormal weight loss; Z68.1 Body mass index [BMI] 19.9 or less, adult; M51.34 Other intervertebral disc degeneration, thoracic region; M51.16 Intervertebral disc disorders with radiculopathy, lumbar region; G25.81 Restless legs syndrome; F33.9 Major depressive disorder, recurrent, unspecified; M79.18 Myalgia, other site | CPT/HCPCS: 20550; 20552; 99214; J1030; J3490 ==

== ENCOUNTER → 2021-12-24 11:00 | Outpatient (BNVA) | payer MEDICARE, OTHER, SELFPAY | PROVIDERS: PCP Physician Assistant; Referring Provider Specialist; Visit Provider Orthopaedic Surgery | DX: M48.54XA Collapsed vertebra, not elsewhere classified, thoracic region, initial encounter for fracture (principal); M47.894 Other spondylosis, thoracic region; M54.6 Pain in thoracic spine | CPT/HCPCS: 72072 ==

== ENCOUNTER → 2022-01-09 07:32 | Outpatient (BNVA) | payer MEDICARE, OTHER, SELFPAY | PROVIDERS: PCP Physician Assistant; Visit Provider Nurse Practitioner Psychiatric/Mental Health | DX: Z03.89 Encounter for observation for other suspected diseases and conditions ruled out (principal); F33.9 Major depressive disorder, recurrent, unspecified; F51.04 Psychophysiologic insomnia; G89.29 Other chronic pain | CPT/HCPCS: 99214 ==

== ENCOUNTER 2022-01-17 11:15 | Outpatient (CLI) | payer MEDICARE, OTHER, SELFPAY ==
--- NOTE | 2022-01-17 12:00 | CTR_ITS ---
PROCEDURE INFORMATION: Exam: CT Thoracic Spine Without Contrast Exam date and time: 01/17/2022 1:34 PM Age: 71 years old Clinical indication: Pain in thoracic spine; Patient HX: Mid back pain; Additional info: M54.6 - pain in thoracic spine TECHNIQUE: Imaging protocol: Computed tomography images of the thoracic spine without contrast. Radiation optimization: All CT scans at this facility use at least one of these dose optimization techniques: automated exposure control; mA and/or kV adjustment per patient size (includes targeted exams where dose is matched to clinical indication); or iterative reconstruction. COMPARISON: MR thoracic spine wo/w [id number] 01/17/2022 12:19 PM RADIATION DOSE METRICS: Total DLP (mGy-cm): 1431.9 FINDINGS: Vertebrae: Again seen are wedge shaped compression fractures with some retropulsion of bony fragments resulting in mild spinal canal narrowing in the T6 and T7 vertebral bodies, similar compared to prior MRI with focal kyphosis at this level. T1-T2: No significant disc protrusion. No severe spinal canal stenosis. No significant neural foraminal narrowing. T2-T3: No significant disc protrusion. No severe spinal canal stenosis. No significant neural foraminal narrowing. T3-T4: No significant disc protrusion. No severe spinal canal stenosis. No significant neural foraminal narrowing. T4-T5: No significant disc protrusion. No severe spinal canal stenosis. No significant neural foraminal narrowing. T5-T6: No significant disc protrusion. No severe spinal canal stenosis. No significant neural foraminal narrowing. T6-T7: No significant disc protrusion. No severe spinal canal stenosis. No significant neural foraminal narrowing. T7-T8: No significant disc protrusion. No severe spinal canal stenosis. No significant neural foraminal narrowing. T8-T9: No significant disc protrusion. No severe spinal canal stenosis. No significant neural foraminal narrowing. T9-T10: No significant disc protrusion. No severe spinal canal stenosis. No significant neural foraminal narrowing. T10-T11: No significant disc protrusion. No severe spinal canal stenosis. No significant neural foraminal narrowing. T11-T12: T11/12 disc protrusion again seen with mild spinal canal and bilateral foraminal narrowing, similar to recent MRI. T12-L1: No significant disc protrusion. No severe spinal canal stenosis. No significant neural foraminal narrowing. Right kidney 2.4 cm somewhat hyperdense lesion incompletely visualized along with several probable hyperdense cyst in left kidney anteriorly, consider further evaluation with dedicated CT scan of the abdomen and pelvis. CT/CT thoracic spin wo con* [id number] IMPRESSION: 1. Again seen are wedge shaped compression fractures with some retropulsion of bony fragments resulting in mild spinal canal narrowing in the T6 and T7 vertebral bodies, similar compared to prior MRI with focal kyphosis at this level. 2. T11/12 disc protrusion again seen with mild spinal canal and bilateral foraminal narrowing, similar to recent MRI. 3. Right kidney 2.4 cm somewhat hyperdense lesion incompletely visualized along with several probable hyperdense cyst in left kidney anteriorly, consider further evaluation with dedicated CT scan of the abdomen and pelvis.
== END 2022-01-17 11:16 | disposition home or self-care (01) ==
LOC: RAD 11:17
PROVIDERS: PCP Physician Assistant; Visit Provider Orthopaedic Surgery
DX: M48.54XA Collapsed vertebra, not elsewhere classified, thoracic region, initial encounter for fracture (principal); M54.6 Pain in thoracic spine
CPT/HCPCS: 72128

== ENCOUNTER 2022-01-17 11:17 | Outpatient (CLI) | payer MEDICARE, OTHER, SELFPAY ==
--- NOTE | 2022-01-17 13:00 | MR_ITS ---
WS: [id number] MRI LUMBAR SPINE WITH AND WITHOUT CONTRAST. HISTORY: M51.16 - Intervertebral disc disorders with radiculopathy... COMPARISON: 09/17/2020 TECHNIQUE: Sagittal and axial multisequence imaging is submitted. Sagittal and axial T1 fat sat seque nces post-MultiHance 17 cc IV. Sagittal survey of the entire spine demonstrates a focal area of high-grade stenosis at C3-4. Mild di sc or osteophyte encroachment upon the ventral thecal sac at C4-5 and C5-6. Wedge-shaped compression fractures at T6 and T7. Straightening of the normal lumbar lordosis. Pedicle screw fixation at L2-3 with interbody fusion and laminectomy defects. No marrow edema or fracture. Disc spaces significantly narrowed at L2-3. Otherwise mild narrowing and desiccation. Conus terminates normally at L1. L1-L2: Mild disc bulging with a moderate central disc protrusion encroaching into the subarticular re cesses. Moderate bilateral subarticular recess encroachment with mild central and foraminal stenosis. No progression since the prior study. L2-L3: Small central disc osteophyte encroaching upon the thecal sac. Similar to the prior examinatio n. No high-grade stenosis. L3-L4: Diffuse annular disc bulging. Bilateral subarticular recess stenosis, LEFT greater than RIGHT due to disc and osteophyte disease. There is a more focal protrusion in the LEFT foramen. At least mo derate LEFT foraminal stenosis due to disc and osteophyte and facet disease. Mild stenosis on the RIG HT. Nerve roots are becoming clumped within the thecal sac. LEFT laminectomy defect. L4-L5: Mild annular disc bulging. More focal moderate RIGHT foraminal disc protrusion. Moderate RIGHT foraminal stenosis and mild LEFT foraminal stenosis. Fluid in the facet joints and mild ligamentum f lavum hypertrophy. L5-S1: Mild disc bulging. No stenosis. Subcentimeter LEFT renal cyst. No discitis or osteomyelitis. MR/MR lumbar spine wo/w con [id number] IMPRESSION: 1. Status post posterior pedicle screw fixation at L2-3 with interbody fusion. 2. Mild progression of degenerative disc disease and spondylosis throughout th e lumbar spine since 09/17/2020. 3. Moderate bilateral subarticular recess encroachment with mild central and f oraminal stenosis at L1-2. No interval change. 4. Moderate LEFT foraminal stenosis due to disc and osteophyte disease and a f ocal protrusion impinging upon the exiting LEFT L3 nerve root. Similar to the p rior study. There is also mild bilateral subarticular recess stenosis. 5. Moderate size RIGHT foraminal disc protrusion at L4-5 with encroachment upo n the exiting L4 nerve root. Similar to the prior study.
--- NOTE | 2022-01-17 13:45 | MR_ITS ---
WS: [id number] MRI THORACIC SPINE with and without contrast. HISTORY: M51.16 - Intervertebral disc disorders with radiculopathy... COMPARISON: 09/17/2020 TECHNIQUE: Multiplanar sequences are performed in sagittal and axial planes. Sagittal and axial T1 fa t sat sequences post-MultiHance 17 cc IV. High-grade cervical stenosis at C2-3 due to disc and osteophyte disease. Progressed since the prior e xamination. Focal kyphosis has progressed centered at the T7 level. Retropulsion of the posterior inferior endpla te of T7 by 6.6 mm. There is encroachment upon the ventral thecal sac. Severe wedging anteriorly. The re is new moderate wedging of T6 by at least 50% contributing to the focal kyphosis. There is increas ed T2 signal within the T6 vertebral body suggesting this is acute to subacute. There is also edema i n the LEFT lateral T7 vertebral body which is slightly more obvious than on the prior study. T1-2: Normal. T2-3: Normal. T3-4: Normal. T4-5: Normal. T5-6: Normal. T6-7: Focal kyphosis resulting in mild deformity upon the ventral thecal sac and a very shallow cent ral disc protrusion which extends just superior to the disc level. No cord contact. Very minimal fora maite narrowing. T7-8: Effacement of ventral CSF due to the retropulsion of the T7 vertebral body. Mild central and b ilateral foraminal stenosis. Similar to the prior study. T8-9: Very mild bilateral foraminal narrowing. T9-10: Normal. T10-11: Bilateral facet joint arthritis and disc bulging. Mild encroachment into the subarticular re cesses and foramina. T11-12: Moderate size central disc protrusion and osteophyte. No cord contact. Mild central and fora maite narrowing. Paravertebral soft tissues are normal. The postcontrast images there is enhancement within the T6 and T7 vertebral bodies. No fluid noted at the T6-7 disc. There is very slight enhancement involving the T6-7 disc. No paravertebral abscess. MR/MR thoracic spine wo/w [id number] IMPRESSION: 1. Marked focal kyphosis centered at T6-7. 2. T7 vertebral body fracture with 6.6 mm of retropulsion of the posterior inf erior endplate is stable. Seen on the prior study from 09/17/2020. 3. New 50% compression fracture at T6. 4. On the postcontrast images there is some enhancement within the T6 and T7 v ertebral bodies. This can be seen with osteomyelitis and also can be seen with recent instrumentation or recent fracture. On the noncontrast exam there is mar row edema suggesting there may have been recent trauma. There is no fluid withi n the T6-7 disc to suggest discitis. Early changes of osteomyelitis are not exc luded with this enhancement. 5. High-grade cervical stenosis at C2-3. 6. Mild foraminal narrowing extending from T6-7 to T8-9. 7. Mild central stenosis at T7-8. 8. Moderate size central disc protrusion or osteophyte at T11-12 with mild bon tral and foraminal narrowing. No change.
== END 2022-01-17 11:18 | disposition home or self-care (01) ==
LOC: RAD 11:20
PROVIDERS: PCP Physician Assistant; Visit Provider Specialist
DX: M51.16 Intervertebral disc disorders with radiculopathy, lumbar region (principal); M51.34 Other intervertebral disc degeneration, thoracic region; M40.294 Other kyphosis, thoracic region; S22.059A Unspecified fracture of T5-T6 vertebra, initial encounter for closed fracture; X58.XXXA Exposure to other specified factors, initial encounter; M48.04 Spinal stenosis, thoracic region; M25.78 Osteophyte, vertebrae; M48.54XA Collapsed vertebra, not elsewhere classified, thoracic region, initial encounter for fracture; M54.6 Pain in thoracic spine
CPT/HCPCS: 72128; 72157; 72158

== ENCOUNTER → 2022-01-21 14:13 | Outpatient (BNVA) | payer MEDICARE, OTHER, SELFPAY | PROVIDERS: PCP Physician Assistant; Visit Provider Orthopaedic Surgery | DX: S22.050A Wedge compression fracture of T5-T6 vertebra, initial encounter for closed fracture (principal); S22.060A Wedge compression fracture of T7-T8 vertebra, initial encounter for closed fracture; X58.XXXA Exposure to other specified factors, initial encounter | CPT/HCPCS: 99214 ==

== ENCOUNTER → 2022-02-03 08:17 | Outpatient (BNVA) | payer MEDICARE, OTHER, SELFPAY | PROVIDERS: PCP Physician Assistant; Visit Provider Specialist | DX: R41.89 Other symptoms and signs involving cognitive functions and awareness (principal); M51.16 Intervertebral disc disorders with radiculopathy, lumbar region; M51.34 Other intervertebral disc degeneration, thoracic region; R11.0 Nausea; F33.9 Major depressive disorder, recurrent, unspecified; N28.89 Other specified disorders of kidney and ureter | CPT/HCPCS: 99214; 99215 ==

== ENCOUNTER 2022-02-12 11:46 | Day surgery (SDC) | payer MEDICARE, OTHER, SELFPAY ==
[2022-02-07 07:15] VITALS: BMI 24.1
--- NOTE | 2022-02-07 07:17 | ECG_ITS ---
[facility] Test Date: 2022-02-07 Pat Name: Trini Marie Department: Room: Gender: Female Office Coordinator: : 1950 Requested By: Patrice Godinez Order Number: [id number] [place] MD: Duglas Nuñez M.D. Measurements Intervals [place] Rate: 102 P: 70 MS: 188 QRS: -37 QRSD: 85 T: 82 QT: 345 QTc: 451 Interpretive Statements SINUS TACHYCARDIA LEFT AXIS DEVIATION [QRS AXIS < -30] LOW QRS VOLTAGE IN PRECORDIAL LEADS [QRS DEFLECTION < 1.0 mV IN CHEST LEADS] ANTEROSEPTAL MYOCARDIAL INFARCTION , OF INDETERMINATE AGE [40+ ms Q WAVE IN V1-V4] Compared to ECG 03/11/2021 18:34:35 Left-axis deviation now present First degree AV block no longer present Myocardial infarct finding still present Electronically Signed On 02-07-2022 20:44:13 CDT by Duglas Nuñez M.D. [id number]
--- NOTE | 2022-02-07 08:14 | P.ANESASSM_ITS ---
Pre-Anesthetic Assessment Height/Weight: Height 1.65 m Weight 65.771 kg Preop Diagnosis: fobt Operation Date: 02/14/22 09:35 Proposed Procedures p T6 T7 Kyphoplasty/wedge com frac of t5-t6 vertebra,ini S22.050A(Not Applicable) - Paramjit Walters DO Familial anesthetic complications: None Was Beta Iván taken within 24 hours: Yes Was Clonidine taken within 24 hours: N/A Social Tobacco and No alcohol Exam alert, oriented x 3 and regular rate & rhythm Airway Submandibular: within normal limits Cervical ROM: within normal limits Mallampati: Class I Dentition: false Pulmonary Chronic Obstructive Pulmonary Disease CV/HEM Anemia, Hypertension and Peripheral Vascular Disease GI Gastroesophageal Reflux Disease Metabolic Diabetes Mellitus Musc/skel Lower Back Pain Neuropsych Anxiety, Depression and Headache Anesthetic Plan ASA status: 3 Anesthesia: General Medications/Allergies Home Medications Medication Instructions Recorded Confirmed Last Taken Type esomeprazole magnesium 40 mg 40 mg PO BID cap 10/25/19 02/07/22 07/11/21 History capsule,delayed release hydrocodone 10 mg-acetaminophen 1 tab PO Q4H PRN tab 01/10/20 02/07/22 07/11/21 History 325 mg tablet bvouydpl-mma-bjxwu ac 400 1 tab PO DAILY tab 11/20/20 02/07/22 07/11/21 History mcg-calcium carb 500 mg-vit K1 20 mcg tablet (Women's 50 Plus Multivitamin) vitamin B complex (B 1 tab PO DAILY 11/20/20 02/07/22 07/11/21 History Complex-Vitamin B12) metoprolol succinate 50 mg 50 mg PO DAILY 07/03/21 02/07/22 07/11/21 History tablet,extended release 24 hr (Toprol XL) mirabegron 25 mg tablet,extended 25 mg PO DAILY 07/03/21 02/07/22 07/11/21 History release 24 hr (Myrbetriq) fluticasone propionate 50 2 spray INTRANASAL DAILY PRN g 12/02/21 02/07/22 Unknown History mcg/actuation nasal spray,suspension (Flonase Allergy Relief) amlodipine 5 mg-benazepril 20 mg 1 cap PO DAILY 12/24/21 02/07/22 Unknown History capsule cyclobenzaprine 10 mg tablet 10 mg PO TID 12/24/21 02/07/22 Unknown History lisinopril 20 mg tablet 20 mg PO DAILY 12/24/21 02/07/22 Unknown History pregabalin 100 mg capsule (Lyrica) 75 mg PO TID cap 01/07/22 02/07/22 Unknown History bupropion HCl 200 mg tablet,12 hr 200 mg PO .every morning #30 tab 01/09/22 02/07/22 Unknown Rx sustained-release bupropion HCl 200 mg tablet,12 hr 200 mg PO .every morning #30 tab 01/09/22 Unknown Rx sustained-release olanzapine 5 mg tablet (Zyprexa) 10 mg PO DAILY #30 tab 01/09/22 02/07/22 Unknown Rx Allergies Allergy/AdvReac Type Severity Reaction Status Date / Time Penicillins Allergy Intermediate ALGY-Rash Verified 02/03/22 08:37 shrimp Allergy Intermediate ADR-Vomitin Verified 02/03/22 08:37 g Tetracyclines Allergy Intermediate ALGY-Rash Verified 02/03/22 08:37 [facility] Anesthesia Medical History Chronic insomnia Chronic pain Diabetes Drug side effects History of broken leg 05/03/2019 Dr. Dk [place]: Left femur kyra Hypertension Intervertebral disc disorder with radiculopathy of lumbar region Major depressive disorder, recurrent Peripheral sensory-motor axonal polyneuropathy Psychiatric care Somnolence Thoracic degenerative disc disease Toxic encephalopathy Surgical History History of ankle surgery History of elbow surgery History of hip surgery Bilateral hip surgery History of knee surgery History of lumbar surgery 01/20/2019 Dr. Micheal Andres: Left L3-L4, L4-L5 laminotomy/foraminotomy 09/2012 [place], [place]: L2-L3 with bilateral pedicle screws and verticle rods. Left L2-L3 hemilaminectomy Family History Father Diabetes Mother Diabetes Social History Smoking and tobacco status: never smoked Quit status (tobacco): has quit using tobacco Year quit tobacco: 2020 Former quit date comment: 03/2021 Alcohol intake: never Household members: spouse Marital status: Current occupational status: retired History of recent travel: No Data Anesthesia Cardiac Studies: No Data to Display
[2022-02-12] VITALS (8 sets, daily range): BP systolic 92–118; BP diastolic 46–90; PULSE 83–99; RESP 12–18; TEMP 36.4–36.7; O2SAT 94–97
--- NOTE | 2022-02-12 | SCC_ITS ---
Procedure done: 1. Kyphoplast T6 2. Kyphoplasty T7 47.4 seconds of fluoroscopic guidance, for a cumulative dose of 40.05 mGy and 23.50 mGy , was provided to Dr. Walters by the radiology department. C-arm images of the thoracic spine were saved for the patient's permanent record. [facility]
[2022-02-12] MEDS: sodium chloride 0.9% 1,000 ML 30 ML IV (12:40)
--- NOTE | 2022-02-12 13:17 | P.ANESUD_ITS ---
Pre-Anesthetic Update Pre-Anesthetic Assessment: Date of Surgery/Procedure: 02/12/22 Preop Minerva gnosis: Traumatic Compression Fx T6/T7 Proposed Procedure: Operation Date: 02/12/22 13:25 Proposed Procedures p T6/ T7/ Kyphoplasty/wedge com frac of t5-t6 vertebra,ini S22.050A(Not Applicable) - Paramjit Walters, DO Changes from Pre-Anesthetic Assessment: Took nexium this morning for indigestion, which has since resolved Last Intake: Intake Last Liquid Date 02/11/22 Last Liquid Time 20:00 Last Solid Date 02/11/22 Last Solid Time 20:00 Vitals: Temperature 97.8 F 02/12/22 12:26 Pulse Rate 93 02/12/22 12:26 Respiratory Rate 18 02/12/22 12:26 Blood Pressure 118/90 02/12/22 12:26 Blood Pressure Ruth Ann n 99 02/12/22 12:26 Pulse Oximetry 97 02/12/22 12:26 Oxygen Delivery Me thod 02/12/22 12:26 Exam: Pre-Anes Outpt Exam: alert, oriented x 3, clear to auscultation bilaterally and regular rate & rhythm Cardiac Studies: No Data to Display
--- NOTE | 2022-02-12 14:29 | W.PM.OPSUD ---
Surgery/Procedure H&P Update DATE OF PROCEDURE: February 12, 2022 DATE H&P PERFORMED: 02/10/20 H&P UPDATE INFORMATION: I have reviewed H&P completed within last 30 days and I have examined patient prior to procedure PREOP DIAGNOSIS: Traumatic Compression Fx T6/T7 PLANNED PROCEDURE: Operation Date: 02/12/22 13:25 Proposed Procedures p T6/16256 T7/51452 Kyphoplasty/wedge com frac of t5-t6 vertebra,ini S22.050A(Not Applicable) - Paramjit Walters DO
[2022-02-12] MEDS: clindamycin 900 MG/50 ML PREMIX 100 MG IV (14:44)
--- NOTE | 2022-02-12 16:07 | SUR.PHASEI ---
patient awake alert responding well A/ox4 pain controlled patient tolerating ice chips well
--- NOTE | 2022-02-12 16:11 | XR_ITS ---
WS: [id number] Thoracic spine, the arm fluoroscopy for vertebroplasty, 02/12/2022 Clinical Data: or pics Comparison: None. Findings: Dr. Walters performed vertebroplasty of mid thoracic vertebra. XR/XR thoracic spine 1V [id number] Impression: Midthoracic vertebroplasty
--- NOTE | 2022-02-12 16:16 | PM.OP ---
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 Kyphoplast T6 2. Kyphoplasty T7 Surgeon: Paramjit Walters Estimated blood loss (mL): 5 Procedure: 1. Kyphoplasty T6 2. Kyphoplasty T7 Patient was brought to the operative suite after ongoing anesthesia was placed in the prone position. Biplanar C-arm was brought in to ensure that the proper level was completed. Attention was first brought to the T7 level. The pedicles were identified. And then using AP and lateral fluoroscopy the starting awl was inserted. Next on the right side the biopsy was taken using a biopsy tube. Biopsy was then sent off to pathology. The drill was then used on the right side. This process was repeated on the left side except for the biopsy was not taken. Next attention was brought to the T6 level again bilaterally the starting awl was inserted at the 11:00 in the 1 o'clock position on the left and right pedicle respectively. This is inserted into the vertebral body the drill was then used and then the balloon was inflated at both the T6 levels and the T7 levels. The balloons were then deflated. Cement was then placed at the T7 level bilaterally watching under fluoroscopy to ensure that no cement was tracking backwards or out of the vertebral body. This process was also done at the T6 level. Once the cement was packed with felt to be adequately dried the tubes were removed AP and lateral fluoroscopy were taken to ensure that the cement was in good position and nothing tracked backwards. Wounds irrigated and closed with nylon suture sterile dressings were applied patient was transferred to the PACU in stable condition.
--- NOTE | 2022-02-13 05:35 | ANE.PACU2 ---
Inpatient post-anesthesia follow up: Airway intact: Yes Vital signs: Temperature 97.6 F Pulse Rate 85 Respiratory Rate 17 Blood Pressure 112/59 Pulse Oximetry 97 Oxygen Delivery Me thod Room Air Oxygen Flow Rate Fraction of Inspir ed Oxygen Hydration adequate: Yes Nausea and vomiting: No Pain level: 2 Mental status: Baseline
--- NOTE | 2022-02-18 11:09 | SUR.PHASEI ---
This nurse witnessed the care of this patient. Care was done by Caitlin riggs. Caitlin inadvertently did not save Phase 1 documentation. This nurse completed the documentation.
== END 2022-02-12 16:57 | disposition home or self-care (01) ==
PROVIDERS: PCP Physician Assistant; Visit Provider Orthopaedic Surgery
PROC: (CPT 22513; principal; 2022-02-12 13:15)
DX: S22.050A Wedge compression fracture of T5-T6 vertebra, initial encounter for closed fracture (principal); S22.060A Wedge compression fracture of T7-T8 vertebra, initial encounter for closed fracture; X58.XXXA Exposure to other specified factors, initial encounter; J44.9 Chronic obstructive pulmonary disease, unspecified; I10 Essential (primary) hypertension; K21.9 Gastro-esophageal reflux disease without esophagitis; I73.9 Peripheral vascular disease, unspecified; E11.9 Type 2 diabetes mellitus without complications; F41.9 Anxiety disorder, unspecified; F32.9 Major depressive disorder, single episode, unspecified; Z83.3 Family history of diabetes mellitus; Z87.891 Personal history of nicotine dependence
CPT/HCPCS: 22513; 22515; 72020; 76000; 88307; 88311; 88342; 93005; J0330; J1100; J2405; J2704; J3010; J3490; J7030

== ENCOUNTER 2022-02-21 08:29 | Outpatient (CLI) | payer MEDICARE, OTHER, SELFPAY ==
--- NOTE | 2022-02-21 09:30 | CT_ITS ---
WS: [id number] CT ABDOMEN WITHOUT CONTRAST HISTORY: N28.89 - Other specified disorders of kidney and ureter Contiguous single phase 5 mm axial imaging performed to the abdomen. Oral contrast has not been provi ded. Coronal and sagittal reformats are submitted. All CT scans at [facility] use at least on e of these dose optimization techniques: automated exposure control; mA and/or kV adjustment per cici ent size (includes targeted exams where dose is matched to clinical indication); or iterative reconst ruction. CONTRAST: None DLP: 945.39 mGy.cm COMPARISON: None available. Lower thorax: Lungs are clear. Small hiatal hernia. Liver: Normal. No intrahepatic dilatation. Gallbladder: Prior cholecystectomy. No bile duct dilatation. Pancreas: Normal. Spleen: Normal. Adrenals: Normal. Right kidney: Normal. Left kidney: Lobulated contour of the superior medial pole LEFT kidney. This area bulges from the cor pippa measuring 2.1 x 1.5 cm and should be further evaluated for possible renal cell neoplasm. There ar e a few additional scattered hyperdense cortical based nodules within the kidney which are probably h emorrhagic cyst. Aorta: Moderate atherosclerosis within the aorta. No aneurysm. GI tract: Stomach is nondistended. No small bowel obstruction. The visualized transverse colon and th e hepatic and splenic flexures are obtained on this abdomen CT. There is significant dilatation and f ecal retention. No adenopathy or free fluid. Abdominal wall: No hernia. Visualized osseous structures: Extensive hardware in the pelvis. Bilateral ORIF hip fractures. Long s crew through the LEFT pelvis. Prior posterior lumbar fusion at L2-3. CT/CT abdomen wo con [id number] IMPRESSION: 1. No acute abdominal or pelvic abnormality is identified. 2. Visualized colon with the abdomen is moderately distended with fecal materi al/constipation. 3. Bulging mass from the superior medial pole LEFT kidney needs further evalua tion. Recommend follow-up ultrasound. This may not be visible with ultrasound. If not visible follow-up three-phase renal mass CT protocol may be necessary to exclude neoplasm. 4. Prior cholecystectomy.
== END 2022-02-21 08:30 | disposition home or self-care (01) ==
LOC: RAD 08:33
PROVIDERS: PCP Physician Assistant; Visit Provider Specialist
DX: N28.89 Other specified disorders of kidney and ureter (principal)
CPT/HCPCS: 74150

== ENCOUNTER → 2022-02-27 09:22 | Outpatient (BNVA) | payer MEDICARE, OTHER, SELFPAY | PROVIDERS: PCP Physician Assistant; Visit Provider Orthopaedic Surgery | DX: S22.060D Wedge compression fracture of T7-T8 vertebra, subsequent encounter for fracture with routine healing (principal); X58.XXXD Exposure to other specified factors, subsequent encounter; N28.89 Other specified disorders of kidney and ureter | CPT/HCPCS: 99213 ==

== ENCOUNTER → 2022-03-04 09:18 | Outpatient (BNVA) | payer MEDICARE, OTHER, SELFPAY | PROVIDERS: PCP Physician Assistant; Visit Provider Nurse Practitioner Psychiatric/Mental Health | DX: F33.9 Major depressive disorder, recurrent, unspecified (principal); Z03.89 Encounter for observation for other suspected diseases and conditions ruled out; G89.29 Other chronic pain; F51.04 Psychophysiologic insomnia | CPT/HCPCS: 99214 ==

== ENCOUNTER → 2022-04-15 09:04 | Outpatient (BNVA) | payer MEDICARE, OTHER, SELFPAY | PROVIDERS: PCP Physician Assistant; Visit Provider Orthopaedic Surgery | DX: M48.062 Spinal stenosis, lumbar region with neurogenic claudication (principal); Z47.89 Encounter for other orthopedic aftercare; Z98.890 Other specified postprocedural states; Z98.1 Arthrodesis status | CPT/HCPCS: 72100; 99214 ==

== ENCOUNTER 2022-04-17 11:37 | Outpatient (CLI) | payer MEDICARE, OTHER, SELFPAY ==
--- NOTE | 2022-04-17 12:00 | US_ITS ---
WS: [email or web address] ULTRASOUND RENAL TECHNIQUE: Ultrasound examination of both kidneys. CLINICAL INFORMATION: N28.89 - Other specified disorders of kidney and ureter COMPARISON: None. FINDINGS: RIGHT: Right kidney is normal in size and appearance. Echogenicity: Normal. Hydronephrosis: None. Perinephric fluid: None. Right kidney measures: 10.7 cm x 5.8 cm x 5.3 cm. LEFT: Left kidney is normal in size and appearance. Echogenicity: Normal. Hydronephrosis: None. Perinephric fluid: None. Left kidney measures: 10.1 cm x 4.9 cm x 5.6 cm. Normal visualized aorta. Normal bladder US/US renal BI* [id number] IMPRESSION: Technically limited study due to bowel gas. Normal renal ultrasound and bladder.
== END 2022-04-17 11:38 | disposition home or self-care (01) ==
LOC: RAD 11:38
PROVIDERS: PCP Physician Assistant; Visit Provider Specialist
DX: N28.89 Other specified disorders of kidney and ureter (principal)
CPT/HCPCS: 76770

== ENCOUNTER 2022-06-12 09:14 | Outpatient (CLI) | payer MEDICARE, OTHER, SELFPAY ==
--- NOTE | 2022-06-12 09:30 | MR_ITS ---
WS: [id number] MRI LUMBAR SPINE NONCONTRAST TECHNIQUE: Sagittal T1, T2 and STIR imaging. Axial T1 and T2 imaging. CLINICAL INFORMATION: low back pain/post op COMPARISON: MRI and CT January 17, 2022 FINDINGS: Mild lumbar curve. Prior postoperative changes pedicle screw fixation L2-L3 with interbody fusion gra ft. Fusion appears solid. Acute compression of the superior endplates at T12 vertebral body with a sm all fracture cleft and edema. Slight retropulsion posterior superior cortex with mild to moderate bon tral canal stenosis. In addition, mild compression of the inferior endplate L5 with fracture cleft an d edema. No retropulsion at this level. Mild to moderate central canal stenosis in the cervical spine respiratory scientist imaging with grade 1 anterolisthe sis C3 on C4 and C4 on C5. Mild to moderate central canal stenosis at C3-C4 C4-C5 and C5-C6 with slig ht impingement on cervical cord worse at C3-C4. Chronic appearing compression with anterior wedging at T6 and T7 with anterior wedging and mild chron ic appearing retropulsion unchanged from prior studies. Mild to moderate central canal stenosis at T7 -T8. Focal kyphosis at the T6-T7 level. Additional mild compression inferior endplate at T9 has an ac toi to subacute appearance. Additional small central protrusions at T10-T11 T11-T12. Findings can be further evaluated with cervical and thoracic spine MRI. T9 inferior endplate fracture appears new from previous. Additional suggestion of mild compression in ferior endplate at T8. In addition, diffuse edema involving the LEFT S1 vertebral body with visualized fracture cleft along the superior endplate. Diffuse edema extends into the posterior elements. Small amount of edema exten ding into the S2 vertebral body. Associated presacral soft tissue edema. L1-L2: Mild disc bulging with slight effacement of ventral thecal sac. Mild central canal stenosis. F oramen are patent. L2-L3: Pedicle screw fixation with interbody fusion. Spinal canal and foramen are patent. L3-L4: Mild annular bulging with impingement on the traversing L4 nerve roots bilaterally. LEFT magda inal protrusion impinges the exiting LEFT L3 nerve root with moderate to severe LEFT foraminal narrow ing. Mild RIGHT L3-L4 foraminal narrowing L4-L5: RIGHT foraminal protrusion impinges the exiting RIGHT L4 nerve root with moderate to severe RI GHT foraminal narrowing. Moderate facet arthropathy. Impingement RIGHT subarticular recess L5-S1: Mild LEFT L5-S1 foraminal narrowing. Mild facet arthropathy. Spinal canal is patent. Slight im pingement traversing LEFT S1 nerve root. MR/MR lumbar spine wo con* [id number] IMPRESSION: 1. New acute appearing compression fractures involving the T8 inferior endplat e, T9 inferior endplate, T12 superior endplate, and L1 inferior endplates. This is described in more detail above. Mild retropulsion at T12 with mild to moder ate central canal stenosis. 2. In addition, diffuse edema involving the LEFT S1 vertebral body with visual ized fracture cleft along the superior endplate. Diffuse edema extends into the posterior elements. Small amount of edema extending into the S2 vertebral body . Associated presacral soft tissue edema. 3. Chronic appearing compression with anterior wedging kyphosis at T6-T7 uncha nged the prior CT December 2021. 4. Stable appearing pedicle screw fixation with interbody fusion L2-L3. Fusion appears solid.. 5. RIGHT foraminal protrusion L4-L5 impinges the exiting RIGHT L4 nerve root w ith moderate to severe RIGHT proximal foraminal narrowing unchanged from previo us. 6. LEFT L3-L4 proximal foraminal protrusion impinges the exiting LEFT L3 nerve root with moderate to severe LEFT foraminal narrowing unchanged from previous. 7. Mild LEFT L5-S1 bony foraminal narrowing. 8. Moderate facet arthropathy L4-L5. 9. Cervical spine stenosis on the respiratory scientist imaging described above.
== END 2022-06-12 09:15 | disposition home or self-care (01) ==
LOC: RAD 09:15
PROVIDERS: PCP Physician Assistant; Visit Provider Orthopaedic Surgery
DX: Z48.89 Encounter for other specified surgical aftercare (principal); M47.816 Spondylosis without myelopathy or radiculopathy, lumbar region; M51.26 Other intervertebral disc displacement, lumbar region; M40.294 Other kyphosis, thoracic region; R60.0 Localized edema; S22.069A Unspecified fracture of T7-T8 vertebra, initial encounter for closed fracture; S22.079A Unspecified fracture of T9-T10 vertebra, initial encounter for closed fracture; S22.089A Unspecified fracture of T11-T12 vertebra, initial encounter for closed fracture; S32.019A Unspecified fracture of first lumbar vertebra, initial encounter for closed fracture; X58.XXXA Exposure to other specified factors, initial encounter
CPT/HCPCS: 72148

== ENCOUNTER → 2022-06-26 15:21 | Outpatient (BNVA) | payer MEDICARE, OTHER, SELFPAY | PROVIDERS: PCP Physician Assistant; Visit Provider Orthopaedic Surgery | DX: M80.08XD Age-related osteoporosis with current pathological fracture, vertebra(e), subsequent encounter for fracture with routine healing (principal) | CPT/HCPCS: 99214 ==

== ENCOUNTER → 2022-07-18 07:44 | Outpatient (BNVA) | payer MEDICARE, OTHER, SELFPAY | PROVIDERS: PCP Physician Assistant; Visit Provider Urology | DX: N28.89 Other specified disorders of kidney and ureter (principal) | CPT/HCPCS: 99203 ==

== ENCOUNTER → 2022-08-07 10:48 | Outpatient (BNVA) | payer MEDICARE, OTHER, SELFPAY | PROVIDERS: PCP Physician Assistant; Visit Provider Orthopaedic Surgery | DX: Z47.89 Encounter for other orthopedic aftercare (principal); Z98.1 Arthrodesis status; M80.08XA Age-related osteoporosis with current pathological fracture, vertebra(e), initial encounter for fracture; M41.9 Scoliosis, unspecified | CPT/HCPCS: 72070; 72100; 99213 ==

== ENCOUNTER 2022-08-07 14:36 | Outpatient (CLI) | payer MEDICARE, OTHER, SELFPAY | END 2022-08-07 14:37 | disposition home or self-care (01) | LOC: SPT 14:37 | PROVIDERS: PCP Physician Assistant; Visit Provider Orthopaedic Surgery | DX: Z46.89 Encounter for fitting and adjustment of other specified devices (principal); S32.000D Wedge compression fracture of unspecified lumbar vertebra, subsequent encounter for fracture with routine healing; X58.XXXD Exposure to other specified factors, subsequent encounter | CPT/HCPCS: 97760; L0456 ==

== ENCOUNTER 2022-08-15 07:01 | Outpatient (CLI) | payer MEDICARE, OTHER, SELFPAY ==
[2022-08-15] MEDS: iohexol 350 mg/mL 500 mL Btl (per mL) IV (07:17)
[2022-08-15 08:17] LABS: Blood Urea Nitrogen 7 mg/dL (8-23)
--- NOTE | 2022-08-15 08:30 | CTR_ITS ---
PROCEDURE INFORMATION: Exam: CT Abdomen And Pelvis Without And With Contrast Exam date and time: 08/15/2022 7:56 AM Age: 72 years old Clinical indication: Abnormal findings; Abnormal radiologic finding of the abdomen; Radiologic exam and body structure: Ct/us renal; Prior surgery; Surgery type: Hyst, RT ing hernia, L spine, pelvis; Additional info: Renal mass, CT abd/pel w /wo contrast 3 phase renal mass on 08/15/22 @ TECHNIQUE: Imaging protocol: Computed tomography of the abdomen and pelvis without and with contrast. Radiation optimization: All CT scans at this facility use at least one of these dose optimization techniques: automated exposure control; mA and/or kV adjustment per patient size (includes targeted exams where dose is matched to clinical indication); or iterative reconstruction. Contrast material: OMNI 350; Contrast volume: 95 ml; Contrast route: INTRAVENOUS (IV); COMPARISON: CT abdomen wo con [id number] 02/21/2022 9:19 AM RADIATION DOSE METRICS: Total DLP (mGy-cm): 2659.33 FINDINGS: Liver: Normal. No mass. Gallbladder and bile ducts: Cholecystectomy. Unremarkable biliary system. Pancreas: Normal. No ductal dilation. Spleen: Normal. No splenomegaly. Adrenal glands: Normal. No mass. Kidneys and ureters: Mild renal cortical volume loss bilaterally. Negative for hydronephrosis. Negative for renal stones. The renal lesions on the left are distorted by motion on the contrast enhanced imaging which limits evaluation. Hyperdense renal lesions on the left without enhancement. No change in size. Largest lesion upper pole 2.5 cm craniocaudad height. Stomach and bowel: Unremarkable. No obstruction. No mucosal thickening. Appendix: No evidence of appendicitis. Intraperitoneal space: Unremarkable. No free air. No significant fluid collection. Vasculature: Unremarkable. No abdominal aortic aneurysm. Lymph nodes: Unremarkable. No enlarged lymph nodes. Urinary bladder: Unremarkable as visualized. Reproductive: Hysterectomy. Bones/joints: Bilateral proximal femur surgical hardware. Surgical hardware in the left pubic bone. Multilevel posterior lumbar spine fusion without complication. T12 compression fracture is new from comparison. Moderate height loss anteriorly around 50%. Concavity of the inferior vertebral endplate of L5 is new from comparison. Mild height loss greater than 10%. Soft tissues: Unremarkable. CT/CT abdomen pelvis wo/w [id number] IMPRESSION: 1. No change in the left renal lesions which demonstrate no significant enhancement. Proteinaceous cysts are suspected. Considered Bosniak 2 lesions. No further workup recommended. 2. T12 and L5 vertebral compression fractures new from 02/21/2022. COMMENTS: Consistent with the [employer]'s Incidental Findings Committee white paper (J Am Frank Radiol 2018): Any incidental renal lesion less than 1 cm or classified as too small to characterize, or any incidental cystic renal lesion characterized as simple-appearing, is likely benign. No follow-up imaging is recommended for these lesions per consensus recommendations based on imaging criteria.
== END 2022-08-15 07:02 | disposition home or self-care (01) ==
PROVIDERS: PCP Physician Assistant; Visit Provider Urology
DX: N28.89 Other specified disorders of kidney and ureter (principal); S22.089A Unspecified fracture of T11-T12 vertebra, initial encounter for closed fracture; S32.059A Unspecified fracture of fifth lumbar vertebra, initial encounter for closed fracture; X58.XXXA Exposure to other specified factors, initial encounter
CPT/HCPCS: 74178; 81003; 82565; 84520; 87077; 87086; 87186; 99213

== ENCOUNTER 2022-11-18 11:23 | Oncology outpatient (recurring) (ONCR) | payer MEDICARE, OTHER, SELFPAY ==
[2022-11-18] MEDS: denosumab 60 mg SDV SUBCUT (11:51)
== END 2022-11-25 23:59 | disposition home or self-care (01) ==
LOC: ONCMED 11:24
PROVIDERS: PCP Physician Assistant; Visit Provider Physician Assistant
DX: M81.0 Age-related osteoporosis without current pathological fracture (principal)
CPT/HCPCS: 96372; J0897

== ENCOUNTER → 2023-02-12 11:08 | Outpatient (BNVA) | payer MEDICARE, OTHER, SELFPAY | PROVIDERS: PCP Physician Assistant; Visit Provider Orthopaedic Surgery | DX: M48.56XA Collapsed vertebra, not elsewhere classified, lumbar region, initial encounter for fracture (principal); M48.54XA Collapsed vertebra, not elsewhere classified, thoracic region, initial encounter for fracture; M54.2 Cervicalgia | CPT/HCPCS: 99214 ==

== ENCOUNTER → 2023-02-12 11:19 | Outpatient (BNVA) | payer MEDICARE, OTHER, SELFPAY | PROVIDERS: PCP Physician Assistant; Visit Provider Orthopaedic Surgery | DX: M48.56XA Collapsed vertebra, not elsewhere classified, lumbar region, initial encounter for fracture (principal); M48.54XA Collapsed vertebra, not elsewhere classified, thoracic region, initial encounter for fracture; M54.2 Cervicalgia | CPT/HCPCS: 72050; 72070; 99214 ==

== ENCOUNTER → 2023-03-04 07:52 | Outpatient (BNVA) | payer MEDICARE, OTHER, SELFPAY | PROVIDERS: PCP Physician Assistant; Visit Provider Podiatrist Foot & Ankle Surgery | DX: R09.89 Other specified symptoms and signs involving the circulatory and respiratory systems (principal); M20.41 Other hammer toe(s) (acquired), right foot; M20.42 Other hammer toe(s) (acquired), left foot; M21.611 Bunion of right foot; I73.9 Peripheral vascular disease, unspecified | CPT/HCPCS: 73630; 99214 ==

== ENCOUNTER 2023-03-06 12:23 | Outpatient (CLI) | payer MEDICARE, OTHER, SELFPAY ==
--- NOTE | 2023-03-06 12:45 | MR_ITS ---
WS: [id number] MRI THORACIC SPINE noncontrast. HISTORY: compression fractures COMPARISON: 01/17/2022 TECHNIQUE: Multiplanar sequences are performed in sagittal and axial planes. Cervical stenosis identified. Most significant at C3-4 and C4-5. Please note the cervical stenosis wa s reported as C2-3 on the prior MRI but the correct level is C3-4. Cervical disc spaces are narrowed. Severe vertebral planar compression fractures at T6 and T7. There is bone upon bone and slight invagi nation at the T7-8 anterior disc space. Very mild anterior wedging of T8 and T9, this anterior wedgin g is new. Schmorl's node at T11. Vertebral planar compression fracture at T12 is new. T7 posterior inferior endplate retropulsion by 5.5 mm. There is mild posterior displacement of the th oracic cord. Additional posterior retropulsion of the superior endplate of T12 by 4 mm. T11-12 centra l disc protrusion with contact upon the ventral thoracic cord. T1-2: Mild foraminal stenosis. T2-3: Mild foraminal stenosis. T3-4: Small shallow central disc protrusion and foraminal stenosis. T4-5: Bilateral moderate foraminal stenosis. T5-6: Bilateral foraminal stenosis. T6-7: Mild encroachment upon the ventral thecal sac. Mild to moderate foraminal stenosis. T7-8: Posterior retropulsion of the T7 vertebral body contacts and displaces the cord. Mild central with moderate foraminal stenosis. T8-9: Mild foraminal stenosis and facet arthritis. T9-10: Osteophytic ridging, moderate facet arthritis. Mild central with moderate foraminal stenosis. T10-11: Mild annular disc bulging with a shallow LEFT paracentral disc protrusion. Facet arthritis. Mild central, subarticular recess and moderate foraminal stenosis, LEFT greater than RIGHT. T11-12: Annular disc bulging with a moderate central disc protrusion. Facet and ligamentum flavum ar thritis. Encroachment upon the subarticular recesses. Mild central, bilateral subarticular recess and foraminal stenosis. MR/MR thoracic spin wo con* [id number] IMPRESSION: 1. Chronic T6 and T7 vertebral planar compression fractures. No marrow edema b ut mild progression since 01/17/2022. 2. Posterior retropulsion of the inferior T7 vertebral body with mild cord con tact and displacement. Similar to the prior study. 3. New T12 vertebral planar fracture of approximately 80%. Small amount of acu te marrow edema along the superior endplate. 4. T11-12 central disc protrusion and associated retropulsion of the T12 verte bral body causing mild central, bilateral subarticular recess stenosis and fora maite stenosis. Contact by disc upon the ventral thoracic cord. 5. Mild anterior wedging of T8 and T9 is new but no acute marrow edema. 6. Multilevel foraminal stenoses as above. Most significant at T6-7, T7-8, T9- 10 and T10-11.
--- NOTE | 2023-03-06 13:30 | MR_ITS ---
WS: [id number] MRI LUMBAR SPINE NONCONTRAST HISTORY: compression fractures, low back pain COMPARISON: 06/12/2022 TECHNIQUE: Sagittal and axial multisequence imaging is submitted. Prior posterior fusion hardware at L2-3. T12 vertebral body compression fracture was also present on the prior lumbar spine MRI of 06/12/2022. No significant progression of the fracture. The central disc protrusion at T11-12 has progressed. The se changes were addressed in the thoracic MRI performed on the same day. No marrow edema in the lumbar spine. Severe disc space narrowing at L2-3 with bone upon bone. Interbody fusion graft appears solid. Very m ild anterior wedging of L5. No progression of the fracture since 06/12/2022. Edema noted in the prior MRI is no longer present. Conus terminates normally at L1-2 disc level. L1-L2: Diffuse disc bulging with a LEFT paracentral disc protrusion and LEFT foraminal disc protrusio n. Mild central stenosis and mild foraminal stenosis. LEFT paracentral disc protrusion is shallow but does appear new. L2-L3: Facet arthritis. No high-grade stenosis. L3-L4: Mild annular disc bulging with osteophytic ridging and facet arthritis. Mild clumping of the n erve roots. Moderate bilateral foraminal stenosis similar to the prior study, RIGHT greater than LEFT . Encroachment upon the traversing L4 nerve roots. L4-L5: Mild annular disc bulging with a RIGHT foraminal disc protrusion impinging upon the exiting RI GHT L4 nerve root with moderate to severe RIGHT foraminal stenosis. Mild encroachment upon the RIGHT subarticular recess. Similar to the prior study. L5-S1: Mild annular disc bulging with disc contacting the S1 nerve roots bilaterally and facet arthri tis. No central stenosis. Bilateral also moderate foraminal stenosis. LEFT renal cysts. Atherosclerosis aorta. MR/MR lumbar spine wo con* [id number] IMPRESSION: 1. Previously described acute edema within the sacrum and L5 has resolved. 2. Posterior fusion at L2-3 with solid interbody spacer. 3. L1-2: Mild central and foraminal stenosis. No high-grade stenosis. 4. L3-4: Moderate bilateral foraminal stenosis, RIGHT greater than LEFT. Most significant encroachment upon the traversing L4 nerve roots. 5. L4-5: RIGHT foraminal disc protrusion with significant encroachment upon th e exiting RIGHT L4 nerve root. Moderate to severe RIGHT foraminal stenosis. Add itional mild encroachment upon the RIGHT subarticular recess. Similar to the pr ior study. 6. L5-S1: Bilateral moderate foraminal stenosis at L5-S1 with mild disc contac t on the S1 nerve roots bilaterally.
== END 2023-03-06 12:24 | disposition home or self-care (01) ==
LOC: RAD 12:27
PROVIDERS: PCP Physician Assistant; Visit Provider Orthopaedic Surgery
DX: M51.16 Intervertebral disc disorders with radiculopathy, lumbar region (principal); M51.34 Other intervertebral disc degeneration, thoracic region; Z98.890 Other specified postprocedural states; M48.54XA Collapsed vertebra, not elsewhere classified, thoracic region, initial encounter for fracture; M48.07 Spinal stenosis, lumbosacral region
CPT/HCPCS: 72146; 72148

== ENCOUNTER → 2023-03-12 08:38 | Outpatient (BNVA) | payer MEDICARE, OTHER, SELFPAY | PROVIDERS: PCP Physician Assistant; Visit Provider Orthopaedic Surgery | DX: Z01.818 Encounter for other preprocedural examination (principal); S22.080A Wedge compression fracture of T11-T12 vertebra, initial encounter for closed fracture; X58.XXXA Exposure to other specified factors, initial encounter | CPT/HCPCS: 80048; 81003; 85025; 99214 ==

== ENCOUNTER → 2023-03-23 11:35 | Outpatient (BNVA) | payer MEDICARE, OTHER, SELFPAY | PROVIDERS: PCP Physician Assistant; Visit Provider Physician Assistant | DX: Z01.818 Encounter for other preprocedural examination (principal) | CPT/HCPCS: 85025 ==

== ENCOUNTER 2023-03-27 07:01 | Day surgery (SDC) | payer MEDICARE, OTHER, SELFPAY ==
[2023-03-26 08:43] VITALS: BMI 25.0
[2023-03-27] VITALS (10 sets, daily range): BP systolic 97–126; BP diastolic 54–75; PULSE 64–79; RESP 16–20; TEMP 36.1–36.3; O2SAT 92–100
--- NOTE | 2023-03-27 07:06 | SC_ITS ---
WS: [email or web address] C-ARM RADIOGRAPHS SPINE; 6 IMAGES HISTORY: T12 Kyphoplasty COMPARISON: None available. Intraoperative imaging during kyphoplasty. Single vertebral body contains cement. The exact location cannot be determined on this limited evaluation during the intraoperative procedure. SC/C-arm FL for Kyphoplasty IMPRESSION: Intraoperative kyphoplasty performed with C-arm guidance.
--- NOTE | 2023-03-27 07:11 | ECG_ITS ---
[facility] Test Date: 2023-03-27 Pat Name: Trini Marie Department: Room: Gender: Female Systems Integration Manager: : 1950 Requested By: Claudia Robertson Order Number: [id number] Harm[place] MD: Duglas Nuñez M.D. Measurements Intervals Rosamond Rate: 73 P: -5 ND: 191 QRS: -47 QRSD: 93 T: 9 QT: 393 QTc: 436 Interpretive Statements SINUS RHYTHMjavascript:perform('study_confirm'); LOW QRS VOLTAGE IN PRECORDIAL LEADS [QRS DEFLECTION < 1.0 mV IN CHEST LEADS] INFERIOR MYOCARDIAL INFARCTION , PROBABLY OLD [40+ ms Q WAVE AND/OR ST/T ABNORMALITY IN II/aVF] ANTEROLATERAL MYOCARDIAL INFARCTION , PROBABLY OLD [40+ ms Q WAVE IN I/aVL/V3-V6] Compared to ECG 02/07/2022 07:27:58 Sinus tachycardia no longer present Left-axis deviation no longer present Myocardial infarct finding still present Electronically Signed On 03-27-2023 15:58:49 CDT by Duglas Nuñez M.D. [email or web address]
--- NOTE | 2023-03-27 07:50 | ANES.PREANE2 ---
Pre-Anesthetic Assessment Height/Weight: Height 1.65 m Weight 68.039 kg O2 Del Method Room Air 03/27/23 07:25 Preop Diagnosis: T12 compression fracture Operation Date: 03/27/23 08:40 Proposed Procedures p T12 kyphoplasty:96243,S22.080A(Not Applicable) - Paramjit Walters DO Familial anesthetic complications: none Was Beta Iván taken within 24 hours: N/A Was Clonidine taken within 24 hours: N/A Last intake: Intake Last Liquid Date 03/26/23 Last Liquid Time 22:30 Last Solid Date 03/26/23 Last Solid Time 22:30 Social Tobacco and No alcohol Exam alert, oriented x 3, clear to auscultation bilaterally and regular rate & rhythm Airway Mallampati: Class II Dentition: full CV/HEM Peripheral Vascular Disease Metabolic Diabetes Mellitus Anesthetic Plan ASA status: 3 Anesthesia: General Risk of > 500 ml blood loss (7ml/kg in children): No Medications/Allergies Home Medications Medication Instructions Recorded Confirmed Last Taken Type hydrocodone 10 mg-acetaminophen 1 tab PO Q4H PRN Pain 01/10/20 03/26/23 03/27/23 06:00 History 325 mg tablet vitamin B complex (B 1 tab PO .MONTHLY 11/20/20 03/27/23 02/26/23 History Complex-Vitamin B12 tablet) mirabegron 25 mg tablet,extended 25 mg PO DAILY 07/03/21 03/26/23 03/26/23 History release 24 hr (Myrbetriq) cyclobenzaprine 10 mg tablet 10 mg PO TID 12/24/21 03/26/23 03/26/23 History pregabalin 100 mg capsule (Lyrica) 75 mg PO TID 01/07/22 03/26/23 03/27/23 06:00 History esomeprazole magnesium 20 mg 20 mg PO BID 02/12/22 03/26/23 03/27/23 06:00 History capsule,delayed release (Nexium) linaclotide 72 mcg capsule 72 mcg PO .every 3 days 07/18/22 03/26/23 03/25/23 History (Linzess) TLSO Brace #1 ea 08/07/22 03/12/23 Unknown Rx bupropion HCl 300 mg 24 hr tablet, 300 mg PO QAM #90 tabs 05/11/2003/26/23 03/27/23 06:00 Rx extended release olanzapine 10 mg tablet 10 mg PO .q hs #90 tabs 01/27/23 03/26/23 03/26/23 Rx amlodipine 5 mg tablet 5 mg PO DAILY 03/26/23 03/26/23 03/27/23 06:00 History Allergies Allergy/AdvReac Type Severity Reaction Status Date / Time Penicillins Allergy Intermediate ALGY-Rash Verified 03/18/23 09:07 shrimp Allergy Intermediate ADR-Vomitin Verified 03/18/23 09:07 g Tetracyclines Allergy Intermediate ALGY-Rash Verified 03/18/23 09:07 [facility] Anesthesia Medical History Chronic insomnia Chronic pain Diabetes Drug side effects History of broken leg 05/03/2019 Dr. Dk [place]: Left femur kyra Hypertension Intervertebral disc disorder with radiculopathy of lumbar region Left renal mass Major depressive disorder, recurrent Peripheral sensory-motor axonal polyneuropathy Psychiatric care Somnolence Thoracic degenerative disc disease Toxic encephalopathy Surgical History History of ankle surgery History of elbow surgery History of hip surgery Bilateral hip surgery History of knee surgery History of lumbar surgery 01/20/2019 Dr. Micheal Andres: Left L3-L4, L4-L5 laminotomy/foraminotomy 09/2012 [place], [place]: L2-L3 with bilateral pedicle screws and verticle rods. Left L2-L3 hemilaminectomy Family History Father , at age 90 Diabetes Stroke Mother , at age 88 Diabetes Stroke Social History Smoking and tobacco status: current every day smoker cigarettes Packs smoked per day: 0.33 Years cigarettes smoked: 30 Quit status (tobacco): has tried quititng Second hand smoke exposure: No Alcohol intake: current Alcohol intake frequency: holidays/special occasions only Substance/Drug Use: never Household members: spouse Marital status: Current occupational status: retired Data Anesthesia Cardiac Studies: No Data to Display
[2023-03-27] MEDS: sodium chloride 0.9% 1,000 ML 30 ML IV (07:58)
[2023-03-27] MEDS: scopolamine 1.5 Patch 1 PATCH TRANSDERMA (07:58)
--- NOTE | 2023-03-27 08:38 | W.PM.OPSUD ---
Surgery/Procedure H&P Update DATE OF PROCEDURE: March 27, 2023 DATE H&P PERFORMED: 03/18/23 H&P UPDATE INFORMATION: I have reviewed H&P completed within last 30 days, I have examined patient prior to procedure and No changes to prior documentation PREOP DIAGNOSIS: T12 compression fracture PLANNED PROCEDURE: Operation Date: 03/27/23 08:40 Proposed Procedures p T12 kyphoplasty:72082,S22.080A(Not Applicable) - Paramjit Walters DO
[2023-03-27] MEDS: clindamycin 600 MG/50 ML PREMIX 100 MG IV (08:53)
[2023-03-27] MEDS: clindamycin 300 MG/50 ML PREMIX 100 MG IV (08:54)
[2023-03-27] MEDS: lidocaine-epi 1% 20 mL INJ INJECTION (09:29)
[2023-03-27] MEDS: iohexol 300 mg/mL 50 mL Btl (OR ONLY) XX (09:29)
--- NOTE | 2023-03-27 09:49 | W.PM.OPSUD ---
Surgery/Procedure H&P Update DATE OF PROCEDURE: March 27, 2023 DATE H&P PERFORMED: 03/18/23 H&P UPDATE INFORMATION: I have reviewed H&P completed within last 30 days, I have examined patient prior to procedure and No changes to prior documentation PREOP DIAGNOSIS: T12 compression fracture PLANNED PROCEDURE: Operation Date: 03/27/23 08:40 Proposed Procedures p T12 kyphoplasty:78956,S22.080A(Not Applicable) - Paramjit Walters DO
--- NOTE | 2023-03-27 09:50 | PC.NURSE ---
Pt arrived to PACU, resting comfortably, no pain or nausea noted. Dressing to mid back C/D/I, able to move all extremities.
--- NOTE | 2023-03-27 09:57 | PM.OP ---
Operative Report Date of procedure: March 27, 2023 Pre-op diagnosis: Preop Diagnosis T12 wedge osteoporotic traumatic compression fracture Post-op diagnosis: same Procedure done: T12 Kyphoplasty Surgeon: Paramjit Walters Estimated blood loss (mL): 5 Procedure: T12 kyphoplasty Patient is brought to the operative suite after undergoing anesthesia was placed in the prone position. All his impingement well-padded. Patient prepped draped normal sterile fashion. Skin incision made over the lateral edge of the left pedicle. The awl was inserted using biplanar fluoroscopy. The awl was passed through the pedicle into the vertebral body. The drill was then passed. Followed by the balloon. Balloon get good fill. However I want to get it on the contralateral side as well. Stab incision made on the right side of the right pedicle. Awl was inserted followed by the drill followed by the balloon. Balloon was inflated. Balloons were removed. Cement was inserted and again using biplanar fluoroscopy ensured the cement stayed in the vertebral body. This was done on both the right and left side. Tubes were pulled. AP and lateral fluoroscopy ensured that the cement was good position body had good fill. Wounds were irrigated and closed with nylon suture.
--- NOTE | 2023-03-27 14:18 | ANE.PACU2 ---
Inpatient post-anesthesia follow up: Airway intact: Yes Vital signs: Temperature 97.0 F Pulse Rate 64 Respiratory Rate 18 Blood Pressure 105/65 Pulse Oximetry 93 Oxygen Delivery Me thod Room Air Oxygen Flow Rate Fraction of Inspir ed Oxygen Hydration adequate: Yes Nausea and vomiting: No Pain level: 1 Mental status: Baseline
== END 2023-03-27 11:01 | disposition home or self-care (01) ==
PROVIDERS: PCP Physician Assistant; Visit Provider Orthopaedic Surgery
PROC: (CPT 22513; principal; 2023-03-27 08:40)
DX: S22.080A Wedge compression fracture of T11-T12 vertebra, initial encounter for closed fracture (principal); X58.XXXA Exposure to other specified factors, initial encounter; I73.9 Peripheral vascular disease, unspecified; E11.9 Type 2 diabetes mellitus without complications; Z79.891 Long term (current) use of opiate analgesic; I10 Essential (primary) hypertension; F33.9 Major depressive disorder, recurrent, unspecified; F17.210 Nicotine dependence, cigarettes, uncomplicated
CPT/HCPCS: 22513; 76000; 93005; J1100; J2405; J2704; J2710; J3010; J3490; J7030

== ENCOUNTER → 2023-04-09 08:44 | Outpatient (BNVA) | payer MEDICARE, OTHER, SELFPAY | PROVIDERS: PCP Physician Assistant; Visit Provider Orthopaedic Surgery | DX: Z48.89 Encounter for other specified surgical aftercare (principal) | CPT/HCPCS: 99024 ==

== ENCOUNTER → 2023-04-29 08:45 | Outpatient (BNVA) | payer MEDICARE, OTHER, SELFPAY | PROVIDERS: PCP Physician Assistant; Visit Provider Nurse Practitioner Psychiatric/Mental Health | DX: Z79.899 Other long term (current) drug therapy (principal) | CPT/HCPCS: 80061; 83036 ==

== ENCOUNTER → 2023-06-03 09:29 | Outpatient (BNVA) | payer MEDICARE, OTHER, SELFPAY | PROVIDERS: PCP Physician Assistant; Visit Provider Podiatrist Foot & Ankle Surgery | DX: M20.41 Other hammer toe(s) (acquired), right foot (principal); M20.42 Other hammer toe(s) (acquired), left foot; I73.9 Peripheral vascular disease, unspecified; M21.611 Bunion of right foot | CPT/HCPCS: 99213 ==

== ENCOUNTER 2023-06-10 12:27 | Outpatient (CLI) | payer MEDICARE, OTHER, SELFPAY ==
--- NOTE | 2023-06-10 13:30 | MM_ITS ---
WS: [email or web address] BILATERAL 3D TOMOSYNTHESIS DIGITAL SCREENING MAMMOGRAPHY WITH CAD CLINICAL INFORMATION: SCREEN HISTORY: Screening mammogram. No current complaints. COMPARISON: 2019 TECHNIQUE: Bilateral CC and MLO views. FINDINGS: Stable previously described atrophic retropectoral breast implants with capsular contractio n, worse on the RIGHT. Scattered fibroglandular densities bilaterally. No suspicious focal mass, asymmetry, calcifications, or architectural distortion. No evidence of malignancy. Vascular calcification. Punctate and secretor y calcifications. IMPRESSION: MM/[place] [id number] BI-RADS: 2-Benign FOLLOW UP: 1 Year Follow-up Recommend return to annual screening mammography.
== END 2023-06-10 12:28 | disposition home or self-care (01) ==
LOC: RAD 12:28
PROVIDERS: PCP Physician Assistant; Visit Provider Physician Assistant
DX: Z12.31 Encounter for screening mammogram for malignant neoplasm of breast (principal)
CPT/HCPCS: 77063; 77067

== ENCOUNTER 2023-06-25 12:53 | Outpatient (CLI) | payer MEDICARE, OTHER, SELFPAY ==
--- NOTE | 2023-06-25 13:02 | XR_ITS ---
WS: [email or web address] DEXA (DUAL ENERGY X-RAY ABSORPTIOMETRY) Bone mineral density was performed using a [employer] machine. HISTORY: POSTMENOPAUSAL COMPARISON: None available. Left forearm BMD: 0.589 g/cm2. T score: -3.3 Z score: -1.3 RIGHT forearm BMD: 0.626 g/cm2. T score: -2.9 Z score: -0.8 Compared to the prior study from 02/03/2020. LEFT forearm bone mineral density has decreased by 13.8%. RIGHT forearm bone mineral density has decreased by 7.7%. IMPRESSION: OSTEOPOROSIS Based upon the WHO classification for females. Significant decrease in bone mineral dens ity since the prior examination within both forearms.
== END 2023-06-25 12:54 | disposition home or self-care (01) ==
PROVIDERS: PCP Physician Assistant; Visit Provider Physician Assistant
DX: Z78.0 Asymptomatic menopausal state (principal); M81.0 Age-related osteoporosis without current pathological fracture
CPT/HCPCS: 77080

== ENCOUNTER 2023-07-31 09:54 | Oncology outpatient (recurring) (ONCR) | payer MEDICARE, OTHER, SELFPAY ==
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
--- OUTSIDE RECORDS SUMMARY | 2023-07-31 09:57 | XMS_ITS | Patient Health Record ---
Author Name Unknown Organization [facility] Address [address] [place] [address] Care Team Providers Care Neuropathologist Name Role Phone Karely Witt Primary Care Provider Leo Mathur [phone] ALLERGIES Allergen (clinical drug ingredient) Drug/Non Drug Allergy documented on EMR Reaction Allergy Type Onset Date Status Shrimp Flavor Unknown Drug Allergy Act lauren shrimp allergenic extract Shrimp (Diagnostic) Unknown Drug Allergy Active Penicillin Unknown Drug Allergy Active tetracycline Tetracycline Unknown Drug Allergy A ctive Product containing tetracycline structure (product) Tetracyclines & Related Unknown Drug Allergy Acti ve REASON FOR REFERRAL No Information MEDICATIONS Medication SIG (Take, Route, Frequency, Duration) Notes Start Date End Date Status Esomeprazole Magnesium 40 MG 1 capsule Orally Once a day Active Amitriptyline HCl 150 MG 1 tablet at bed time Orally Once a day Active Linaclotide Active Cetirizine HCl 10 MG 1 tablet Orally Onc e a day Active buPROPion HCl 75 MG 2 tablets Orally Twice a day Active Aspirin 81 81 MG 1 tablet Orally Once a day Not-Taking Acyclovir 200 MG 1 capsule Orally Three times a day Active Lisinopril 20 MG Orally Once a day Active Mirtazapine 45 MG 1 tablet at bedtime Orally Once a day Active Linzess Active Pregabalin 75 MG 1 capsule Orally Onc e a day Active Metoprolol Succinate ER 50 MG 1 tablet Orally Once a day Active HYDROcodone-Acetaminophen 10-325 MG 1 tablet as needed Orally every 6 hrs Active Flexeril Active busPIRone HCl 10 MG 1 tablet Orally Twic e a day Active Atorvastatin Calcium 20 MG 1 tablet Oral ly Once a day Active QUEtiapine Fumarate 100 MG 1 tablet at b edtime Orally Once a day Active metFORMIN HCl 500 MG 1 tablet with a veronica l Orally Once a day Active PARoxetine HCl 20 MG 1 tablet in the morning Orally Once a day Active Cyclobenzaprine HCl 10 MG 1 tablet at be dtime as needed Orally Once a day Active SOCIAL HISTORY Tobacco Use: Social History Observation Description Date Details (start date - stop date) Current Smoker NA - NA Sex Assigned At : Social History Observation Description Sex Assigned At Unknown Tobacco Use/Smoking Question Answer Notes Are you a current every day smoker Alcohol Screen (Audit-C) Question Answer Notes Did you have a drink containing alcohol in the p ast year? No Points 0 Interpretation Negative PHQ-9 Question Answer Notes Little interest or pleasure in doing things Near ly every day Feeling down, depressed, or hopeless Several day s Trouble falling or staying asleep, or sleeping t oo much Several days Feeling tired or having little energy Several da ys Poor appetite or overeating Several days Feeling bad about yourself, or that you are a failure, or have let yourself or your family down Several days Trouble concentrating on thi ngs, such as reading the newspaper or watching television Several days Moving or speaking so slowly that other people could have noticed. Or the opposite ? being so fidgety or restless that you have been moving around a lot more than usual Several days Thoughts that you would be b imani off , or of hurting yourself in some way Not at all Total Score 10 Interpretation Moderate Depression PROBLEMS Problem Type ICD Code Onset Dates Problem Status W/U Status Risk SNOMED Code Notes Problem Essential hypertension (I10) Active confirmed Essential hypertension (93700149) Problem Hypercholesteremia (E78.00) Active confirmed Pure hypercholesterolemia (533760261) Problem Abnormal EKG (R94.31) Active confirmed Electrocardiogr am abnormal (965632228) Problem Kyphosis of thoracic region, unspecified kyphosis type (M40.204) Active confirmed [id number] PLAN OF TREATMENT Pending Test Test Name Order Date Prothrombin Time 60570 02/07/2021 Prothrombin Time 54316 03/19/2021 ABORh 83385, 91702 02/07/2021 ABORh 90817, 10054 03/19/2021 Antibody Screen 25197 03/19/2021 Antibody Screen 75098 02/07/2021 Basic Metabolic Panel 59582 03/19/2021 Basic Metabolic Panel 33419 02/07/2021 CBC w\ Auto Diff 96958 02/07/2021 CBC w\ Auto Diff 35460 03/19/2021 Partial Thromboplastin Time 01899 2020 Partial Thromboplastin Time 81602 2020 Chest PA/Lat-20493 02/07/2021 Chest PA/Lat-67141 02/07/2021 XR Outside CD 09/17/2020 XR Outside CD 09/17/2020 Electrocardiogram 12 Lead Tracing-97499 02/07/2021 Scan--68723 03/20/2021 zzzMRI Outside CD 09/17/2020 zzzMRI Outside CD 09/17/2020 Insurance Providers Payer Name Payer Address Payer Phone Subscriber Number Group Number Insured Name Patient Relationship to Insured Coverage Start Date Coverage End Date [facility] [address] [address] [place] [phone] [id number] Trini Marie Self - patient is the insured [facility] [address] [address] [place] [phone] [id number] Trini Marie Self - patient is the insured MEDICAL (GENERAL) HISTORY Medical History History ICD Code measles pneumonia rhumatic fever arthritis anemia diabetes hernia back trouble high blood pressure bronchitis anxiety depression fatty liver fibromyalgia hyperlipidemia osteoporosis Surgical History Surgery Date(Month/Year) tmy surgery multi fracture surgery breast augmentation appendectomy cholecystectomy hysterectomy fracture repair back sx
[2023-07-31] MEDS: denosumab 60 mg SDV SUBCUT (10:21)
[2023-07-31 10:23] VITALS: BP 132/80; PULSE 98; RESP 16; TEMP 35.7; O2SAT 98
== END 2023-08-27 23:59 | disposition home or self-care (01) ==
LOC: ONCMED 09:55
PROVIDERS: PCP Physician Assistant; Visit Provider Physician Assistant
DX: M81.0 Age-related osteoporosis without current pathological fracture (principal)
CPT/HCPCS: 96372; J0897

== ENCOUNTER 2023-10-13 12:05 | Outpatient (CLI) | payer MEDICARE, OTHER, SELFPAY ==
--- NOTE | 2023-10-13 | XR_ITS ---
WS: [id number] Exam: XR knee RT 3V* [id number] Date/Time of Exam: 10/13/2023 12:00 AM Reason For Exam: PAIN IN RIGHT KNEE No fracture or dislocation. An intact total knee replacement is noted in satisfactory alignment. An i ntramedullary kyra with transverse anchoring screws seen in the lower femur. Pronounced osteopenia. So ft tissues are unremarkable. IMPRESSION: 1. Stable appearing total knee replacement without complication. 2. No acute fracture or joint effusion identified. 3. Pronounced osteopenia.
== END 2023-10-13 12:06 | disposition home or self-care (01) ==
LOC: RADOUTREAD 12:06
PROVIDERS: PCP Physician Assistant; Visit Provider Physician Assistant
DX: M25.561 Pain in right knee (principal); M48.062 Spinal stenosis, lumbar region with neurogenic claudication; M85.88 Other specified disorders of bone density and structure, other site; Z98.890 Other specified postprocedural states
CPT/HCPCS: 99213

== ENCOUNTER → 2023-11-24 08:02 | Outpatient (BNVA) | payer MEDICARE, OTHER, SELFPAY | PROVIDERS: PCP Physician Assistant; Visit Provider Podiatrist Foot & Ankle Surgery | DX: M20.41 Other hammer toe(s) (acquired), right foot (principal); M20.42 Other hammer toe(s) (acquired), left foot; I73.9 Peripheral vascular disease, unspecified; E11.42 Type 2 diabetes mellitus with diabetic polyneuropathy; M21.611 Bunion of right foot | CPT/HCPCS: 99213 ==

== ENCOUNTER → 2024-02-23 08:06 | Outpatient (BNVA) | payer MEDICARE, OTHER, SELFPAY | PROVIDERS: PCP Physician Assistant; Visit Provider Podiatrist Foot & Ankle Surgery | DX: M20.41 Other hammer toe(s) (acquired), right foot (principal); M20.42 Other hammer toe(s) (acquired), left foot; E11.42 Type 2 diabetes mellitus with diabetic polyneuropathy; M21.611 Bunion of right foot | CPT/HCPCS: 99213 ==

== ENCOUNTER → 2024-05-17 09:02 | Outpatient (BNVA) | payer MEDICARE, OTHER, SELFPAY | PROVIDERS: PCP Physician Assistant; Visit Provider Podiatrist Foot & Ankle Surgery | DX: M20.41 Other hammer toe(s) (acquired), right foot (principal); M20.42 Other hammer toe(s) (acquired), left foot; E11.42 Type 2 diabetes mellitus with diabetic polyneuropathy; L84 Corns and callosities; L60.3 Nail dystrophy; I73.9 Peripheral vascular disease, unspecified; M21.611 Bunion of right foot | CPT/HCPCS: 11056; 11721 ==

== ENCOUNTER 2024-05-18 09:23 | Outpatient (CLI) | payer MEDICARE, OTHER, SELFPAY ==
--- NOTE | 2024-05-18 09:30 | MR_ITS ---
WS: [id number] MRI LUMBAR SPINE NONCONTRAST TECHNIQUE: Sagittal T1, T2 and STIR imaging. Axial T1 and T2 imaging. CLINICAL INFORMATION: back pain COMPARISON: MRI 03/06/2023 FINDINGS: Central canal stenosis in the cervical spine with grade 1 anterolisthesis C3 on C4 and C4 on C5. Mild to moderate central canal stenosis at C3-C5 appears progressed compared to the prior imaging science professor imaging. Recommend MRI cervical spine in further evaluation. Stable appearance of previously described compression fractures with anterior wedging T6, T7, and T12 . Prior pedicle screw fixation L2-3 with interbody fusion. L1-L2: Mild disc bulging with narrowing of the subarticular recess bilaterally worse on the LEFT. Mil d facet arthropathy. Mild LEFT and no significant RIGHT foraminal narrowing. Mild central canal steno sis. L2-L3: Stable postoperative changes. Spinal canal and foramen are patent. L3-L4: Mild annular bulging. Narrowing of the subarticular recess bilaterally. Moderate facet arthrop athy. Moderate LEFT and mild RIGHT foraminal narrowing. L4-L5: Mild annular bulging. Moderate facet arthropathy. Mild RIGHT and no significant LEFT foraminal narrowing. Narrowing of the RIGHT subarticular recess. L5-S1: Mild annular bulging. Narrowing of the subarticular recess bilaterally. Mild bilateral foramin al narrowing RIGHT greater than LEFT. Tarlov cysts in the sacrum. Visualized pelvic bony structures: Normal. Paravertebral soft tissues: Normal. Small LEFT renal cyst. MR/MR lumbar spine wo con* [id number] IMPRESSION: 1. Progressed central canal stenosis cervical spine on the imaging science professor imaging. José Antonio mmend MRI cervical spine. Progressed anterolisthesis C3 on C4 and C4 on C5. 2. Stable pedicle screw fixation L2-3. 3. Stable compression fractures described above with stable chronic retropulsi on at T12. 4. Mild central canal stenosis L1-2 with impingement of the LEFT subarticular recess appears slightly progressed. 5. Disc bulging L4-5 with impingement the RIGHT subarticular recess with moder ate facet arthropathy. This appears stable. 6. Mild disc bulging L5-S1 with slight contact of the S1 nerve roots LEFT grea ter than RIGHT appears stable. 7. Moderate facet arthropathy L3-L5.
== END 2024-05-18 09:24 | disposition home or self-care (01) ==
PROVIDERS: PCP Physician Assistant; Visit Provider Orthopaedic Surgery
DX: M48.062 Spinal stenosis, lumbar region with neurogenic claudication (principal); M47.896 Other spondylosis, lumbar region; M99.63 Osseous and subluxation stenosis of intervertebral foramina of lumbar region; G96.191 Perineural cyst; M51.36 Other intervertebral disc degeneration, lumbar region; Z98.890 Other specified postprocedural states
CPT/HCPCS: 72148

== ENCOUNTER → 2024-05-19 10:34 | Outpatient (BNVA) | payer MEDICARE, OTHER, SELFPAY | PROVIDERS: PCP Physician Assistant; Visit Provider Orthopaedic Surgery | DX: M48.062 Spinal stenosis, lumbar region with neurogenic claudication (principal) | CPT/HCPCS: 99214 ==

== ENCOUNTER 2024-07-14 10:46 | Outpatient (CLI) | payer MEDICARE, OTHER, SELFPAY ==
--- NOTE | 2024-07-14 10:49 | CT_ITS ---
WS: [id number] LDCT LUNG CANCER SCREENING HISTORY: NICOTINE DEPENDENCE TECHNIQUE: Axial imaging performed from the apices to 1 cm below the costophrenic angles. Coronal and sagittal reformats are submitted with axial MIP series. All CT scans at [facility] use at least one of these dose optimization techniques: automated exposure control; mA and/or kV adjustment per patient size (includes targeted exams where dose is matched to clinical indication); or iterativ e reconstruction. DLP: 73.30 mGy.cm DIvol: Mean CTDIvol: 1.90 (mGy) COMPARISON: 08/15/2022 Diagnostic quality: Satisfactory Lungs: 4 mm subpleural nodule RIGHT middle lobe. Subpleural nodule was also present on 08/15/2022. No additional mass or nodule. No pneumonia. No endobronchial lesions. Heart: Normal size heart with no pericardial effusion.. Other findings: Mild atherosclerosis aorta. Normal size aorta and pulmonary artery. Small hiatal viry ia. No adrenal mass. Several prior thoracic kyphoplasty's. CT/CT lung screening 60551 IMPRESSION: LUNG-RADS: 2-Benign Appearance or Behavior FOLLOW UP: 12 Month: Continue annual screening with LDCT OTHER FINDINGS (S MODIFIER): None.
== END 2024-07-14 10:47 | disposition home or self-care (01) ==
LOC: RAD 10:46
PROVIDERS: PCP Physician Assistant; Visit Provider Physician Assistant
DX: Z12.2 Encounter for screening for malignant neoplasm of respiratory organs (principal); F17.210 Nicotine dependence, cigarettes, uncomplicated; R91.1 Solitary pulmonary nodule; K44.9 Diaphragmatic hernia without obstruction or gangrene
CPT/HCPCS: 71271

== ENCOUNTER → 2024-07-21 09:50 | Outpatient (BNVA) | payer MEDICARE, OTHER, SELFPAY | PROVIDERS: PCP Physician Assistant; Referring Provider Physician Assistant; Visit Provider Nurse Practitioner Family | DX: D22.5 Melanocytic nevi of trunk (principal); D48.5 Neoplasm of uncertain behavior of skin; L57.8 Other skin changes due to chronic exposure to nonionizing radiation; L57.0 Actinic keratosis; L81.4 Other melanin hyperpigmentation; L82.1 Other seborrheic keratosis | CPT/HCPCS: 11102; 17000; 99203 ==

== ENCOUNTER 2024-07-22 09:44 | Oncology outpatient (recurring) (ONCR) | payer MEDICARE, OTHER, SELFPAY ==
[2024-07-22 09:57] VITALS: BP 140/88; PULSE 77; RESP 18; TEMP 35.7; O2SAT 98
[2024-07-22] MEDS: denosumab 60 mg SDV SUBCUT (10:28)
== END 2024-07-28 23:59 | disposition home or self-care (01) ==
PROVIDERS: PCP Physician Assistant; Visit Provider Physician Assistant
DX: Z79.899 Other long term (current) drug therapy (principal); M81.0 Age-related osteoporosis without current pathological fracture
CPT/HCPCS: 96372; J0897

== ENCOUNTER → 2024-08-10 10:51 | Outpatient (BNVA) | payer MEDICARE, OTHER, SELFPAY | PROVIDERS: PCP Physician Assistant; Visit Provider Podiatrist Foot & Ankle Surgery | DX: M20.41 Other hammer toe(s) (acquired), right foot (principal); M20.42 Other hammer toe(s) (acquired), left foot; L84 Corns and callosities; L60.3 Nail dystrophy; I73.9 Peripheral vascular disease, unspecified; E11.42 Type 2 diabetes mellitus with diabetic polyneuropathy; M21.611 Bunion of right foot | CPT/HCPCS: 11056; 11721 ==

== ENCOUNTER → 2024-11-14 11:27 | Outpatient (BNVA) | payer MEDICARE, OTHER, SELFPAY | PROVIDERS: PCP Physician Assistant; Visit Provider Podiatrist Foot & Ankle Surgery | DX: E11.42 Type 2 diabetes mellitus with diabetic polyneuropathy (principal); L60.3 Nail dystrophy; L84 Corns and callosities; M20.41 Other hammer toe(s) (acquired), right foot; M20.42 Other hammer toe(s) (acquired), left foot; I73.9 Peripheral vascular disease, unspecified; M21.611 Bunion of right foot | CPT/HCPCS: 11056; 11721 ==

== ENCOUNTER 2025-01-20 09:41 | Oncology outpatient (recurring) (ONCR) | payer MEDICARE, OTHER, SELFPAY ==
[2025-01-20] MEDS: denosumab 60 mg SDV SUBCUT (11:07)
[2025-01-20 11:08] VITALS: BP 102/63; PULSE 80; TEMP 36.3; O2SAT 93
== END 2025-01-25 23:59 | disposition home or self-care (01) ==
LOC: ONCMED 09:42
PROVIDERS: PCP Physician Assistant; Visit Provider Physician Assistant
DX: T14.8XXA Other injury of unspecified body region, initial encounter (principal); X58.XXXA Exposure to other specified factors, initial encounter
CPT/HCPCS: 36415; 82310; 96372; J0897

== ENCOUNTER → 2025-02-13 10:33 | Outpatient (BNVA) | payer MEDICARE, OTHER, SELFPAY | PROVIDERS: PCP Physician Assistant; Visit Provider Podiatrist Foot & Ankle Surgery | DX: E11.42 Type 2 diabetes mellitus with diabetic polyneuropathy (principal); L60.3 Nail dystrophy; L84 Corns and callosities; I73.9 Peripheral vascular disease, unspecified; M21.611 Bunion of right foot | CPT/HCPCS: 11056; 11721 ==

== ENCOUNTER 2025-03-24 10:48 | Outpatient (CLI) | payer MEDICARE, OTHER, SELFPAY ==
--- NOTE | 2025-03-24 10:56 | CTR_ITS ---
PROCEDURE INFORMATION: Exam: CT Abdomen And Pelvis Without And With Contrast Exam date and time: 03/24/2025 11:31 AM Age: 75 years old Clinical indication: Abnormal findings; Abnormal radiologic finding of the abdomen; Radiologic exam and body structure: US liver; Prior surgery; Surgery date: 6+ months; Surgery type: Hyst, RT ing hernia, lumbar, pelvis; Hypoechoic mass in the central right kidney measures 2.1 x 2.2 cm; Additional info: R renal mass TECHNIQUE: Imaging protocol: Computed tomography of the abdomen and pelvis without and with contrast. 3D rendering (Not supervised by radiologist): MIP and/or 3D reconstructed images were created by the technologist. Radiation optimization: All CT scans at this facility use at least one of these dose optimization techniques: automated exposure control; mA and/or kV adjustment per patient size (includes targeted exams where dose is matched to clinical indication); or iterative reconstruction. Contrast material: OMNI 350; Contrast volume: 100 ml; Contrast route: INTRAVENOUS (IV); COMPARISON: CT abdomen pelvis wo/w [id number] 08/15/2022 7:56 AM RADIATION DOSE METRICS: Total DLP (mGy-cm): 1418.3 FINDINGS: Lungs: Lung bases are clear. Liver: There are subcentimeter hypodense hepatic nodules which are too small to fully characterize on this exam. Gallbladder and biliary ducts: The gallbladder is absent. There is no intrahepatic or extrahepatic bile duct dilation. Pancreas: There is mild atrophy of the pancreas. Spleen: The spleen is unremarkable. Adrenal glands: The adrenal glands are unremarkable. Kidneys and ureters: There is a nonenhancing 2.4 cm complicated cyst in the left kidney measuring intermediate density. There are multiple smaller similar cyst in the left kidney. Left renal parenchymal enhancement pattern is normal. There is no hydronephrosis or stones on the left. No renal mass or cyst on the right. There is no hydronephrosis or stones on the right. Mild asymmetric thickening and enhancement of the right renal pelvic urothelium. Stomach and bowel: The stomach is nondistended, limiting assessment of wall thickness. The small bowel is nondilated. The colon is unremarkable. Appendix: The appendix is not visible. Intraperitoneal space: There is no free air or significant intraperitoneal free fluid. Vasculature: There is moderate aortic atherosclerotic disease. The portal, splenic and superior mesenteric veins are patent. Lymph nodes: There is no lymphadenopathy in the retroperitoneum, mesentery, pelvis or inguinal regions. Urinary bladder: The urinary bladder is unremarkable. Reproductive: The uterus is absent. There is no adnexal mass or large cyst. Bones/joints: There is mild degenerative disease in the lumbar spine. Intact posterolateral fusion at L2-L3 vertebroplasty at T12 with chronic moderate to severe compression deformity. Mild chronic L5 compression deformity. There is moderate degenerative disease in the lumbar spine. There is dynamic compression screw fixation of the right femoral neck. There is dynamic compression screw fixation of the left femoral neck. There is severe degenerative disease at the left hip. There is mild degenerative disease of the right hip. There is a screw in the left superior pubic ramus. There is a chronic fracture of the left inferior pubic ramus and left superior pubic ramus. There are healing fractures associated with bone sclerosis in the right sacral ala and left posterior ilium. Soft tissues: The abdominal wall is intact. CT/CT abdomen pelvis wo/w 13296 IMPRESSION: 1. No renal mass or cyst on the right. Mildly complicated cysts in the left kidney (Bosniak II). No imaging follow-up is needed. 2. Mild asymmetric thickening and enhancement of the right renal pelvic urothelium suggests pyelitis. 3. Subcentimeter liver nodules, too small to fully characterize. In a low-risk patient, this is most likely to be benign and no further follow-up is recommended. In a high-risk patient, follow-up MRI in 3-6 months is recommended (or earlier if warranted by the patient's specific clinical circumstances). (Reference: Carrie) 4. Incidental findings above. COMMENTS: Consistent with the [employer]'s Incidental Findings Committee white paper (J Am Frank Radiol 2018): Any incidental renal lesion less than 1 cm or classified as too small to characterize, or any incidental cystic renal lesion characterized as simple-appearing, is likely benign. No follow-up imaging is recommended for these lesions per consensus recommendations based on imaging criteria. REFERENCES: Carrie DUQUE, et al. Management of Incidental Liver Lesions on CT: A White Paper of the ACR Incidental Findings Committee. J Am Frank Radiol. 2017;14(11):6687-6301.
[2025-03-24] MEDS: iohexol 350 mg/mL 500 mL Btl (per mL) IV (11:34)
== END 2025-03-24 10:49 | disposition home or self-care (01) ==
LOC: RAD 10:50
PROVIDERS: PCP Physician Assistant; Visit Provider Physician Assistant
DX: N28.1 Cyst of kidney, acquired (principal); N28.89 Other specified disorders of kidney and ureter; R93.2 Abnormal findings on diagnostic imaging of liver and biliary tract; K86.89 Other specified diseases of pancreas; I70.0 Atherosclerosis of aorta; Z90.710 Acquired absence of both cervix and uterus; M51.369 Other intervertebral disc degeneration, lumbar region without mention of lumbar back pain or lower extremity pain; M16.0 Bilateral primary osteoarthritis of hip; S32.392D Other fracture of left ilium, subsequent encounter for fracture with routine healing; S32.10XD Unspecified fracture of sacrum, subsequent encounter for fracture with routine healing; X58.XXXD Exposure to other specified factors, subsequent encounter; Z96.641 Presence of right artificial hip joint; Z96.7 Presence of other bone and tendon implants; Z98.1 Arthrodesis status; Z90.49 Acquired absence of other specified parts of digestive tract
CPT/HCPCS: 74178

== ENCOUNTER → 2025-05-15 11:06 | Outpatient (BNVA) | payer MEDICARE, OTHER, SELFPAY | PROVIDERS: PCP Physician Assistant; Visit Provider Podiatrist Foot & Ankle Surgery | DX: E11.42 Type 2 diabetes mellitus with diabetic polyneuropathy (principal); L60.3 Nail dystrophy; L84 Corns and callosities; I73.9 Peripheral vascular disease, unspecified | CPT/HCPCS: 11056; 11721 ==

== ENCOUNTER 2025-05-25 11:16 | Outpatient (CLI) | payer MEDICARE, OTHER, SELFPAY ==
--- NOTE | 2025-05-25 11:30 | MM_ITS ---
WS: [id number] BILATERAL SCREENING DIGITAL BREAST MAMMOGRAPHY WITH TRACEY DISPLACEMENT VIEWS. CAD PERFORMED. HISTORY: ANNUAL SCREENING COMPARISON: 06/10/2023, 01/07/2019 Bilateral craniocaudal and mediolateral oblique views are performed with tomosynthesis and SM. Tracey displacement views in CC and MLO projection also performed. Breasts composition: There are scattered areas of fibroglandular density. Partially collapsed breast implants with partial capsular contraction. Similar to prior studies. No suspicious mass or grouping of calcifications within either breast. Benign calcifications are noted bilaterally. MM/MM scr tomosynthesis [id number] IMPRESSION: BI-RADS: 2 - Benign. FOLLOW-UP: 1 Year Follow-up
== END 2025-05-25 11:17 | disposition home or self-care (01) ==
LOC: RAD 11:17
PROVIDERS: PCP Physician Assistant; Visit Provider Physician Assistant
DX: Z12.31 Encounter for screening mammogram for malignant neoplasm of breast (principal)
CPT/HCPCS: 77063; 77067

== ENCOUNTER 2025-07-31 12:17 | Oncology outpatient (recurring) (ONCR) | payer OTHER, MEDICARE, SELFPAY ==
[2025-07-31] MEDS: denosumab-bbdz 60 MG Syringe SUBCUT (12:50)
== END 2025-08-27 23:59 | disposition home or self-care (01) ==
LOC: ONCMED 12:18
PROVIDERS: PCP Physician Assistant; Visit Provider Physician Assistant
DX: M81.0 Age-related osteoporosis without current pathological fracture (principal); Z79.899 Other long term (current) drug therapy
CPT/HCPCS: 96372; Q5136